=== PATIENT | male | born 1960 | race Caucasian/White ===

== ENCOUNTER → 2018-04-23 07:27 | Outpatient (CLI) | payer BC, SELFPAY ==
--- NOTE | 2018-04-23 07:31 | ECHOD_ITS ---
Reason For Study: PHTN Procedure This was a 2D Doppler, Color Flow transthoracic echocardiogram. The exam was of poor technical quality due to body habitus. The study was technically difficult. Contrast injection was performed. Exam performed in department. Left Ventricle Normal LV size. Left ventricular systolic function is normal. The estimated ejection fraction is 60 %. Unable to assess diastolic dysfunction. No regional wall motion abnormalities noted. Right Ventricle Normal RV size. Normal systolic function. Atria The left atrium is mildly enlarged. Normal right atrium. No doppler evidence for ASD. Mitral Valve There is no mitral annular calcification. Normal mitral valve. Trivial mitral valve insufficiency. Tricuspid Valve Normal tricuspid valve. Mild tricuspid valve insufficiency. Right ventricular systolic pressure estimated to be 41 mmHg. Aortic Valve Trisinus/trileaflet aortic valve. Mild focal aortic valve thickening. Pulmonic Valve The pulmonic valve is not well visualized. Trivial pulmonic valve insufficiency. Great Vessels Normal sized aortic root. Pericardium/Pleural No pericardial effusion. Medication 22 gauge I.V. with prn adaptor inserted into right arm. Diluted definity 3ml given slow IV push to enhance endocardial definition. MMode/2D Measurements & Calculations LVIDd: 4.6 cm IVSd: 0.92 cm Ao root diam: 3.2 cm LVIDs: 3.5 cm LVPWd: 0.96 cm RVDd: 3.2 cm FS: 24.4 % LAV(MOD-bp): 48.0 ml EDV(MOD-sp4): 126.9 ml EDV(MOD-sp2): 73.7 ml LAV(MOD-bp) Indexed: 20.1 ml/m2 ESV(MOD-sp4): 48.3 ml EF(MOD-sp2): 48.4 % LAV(MOD-sp2): 22.2 ml EF(MOD-sp4): 62.0 % LAV(MOD-sp4): 60.0 ml SV(MOD-sp4): 78.6 ml SV(MOD-sp2): 35.7 ml LA A4 area: 21.6 cm2 RA A4 area: 13.3 cm2 Doppler Measurements & Calculations MV E max garret: 68.0 cm/sec Lat Peak E' Garret: 12.8 cm/sec Med Peak E' Garret: 7.3 cm/sec MV A max garret: 77.5 cm/sec E/E' lat: 5.3 E/E' med: 9.3 MV E/A: 0.88 Ao V2 max: 126.8 cm/sec LV V1 max: 90.5 cm/sec PA V2 max: 149.6 cm/sec Ao max P.4 mmHg LV V1 max P.3 mmHg PI end-d garret: 122.2 cm/sec TR max garret: 308.9 cm/sec TR max P.2 mmHg Interpretation Summary The study was technically difficult. Contrast injection was performed. Left ventricular systolic function is normal. The estimated ejection fraction is 60 %. The left atrium is mildly enlarged. Trivial mitral valve insufficiency. Mild tricuspid valve insufficiency. Mild focal aortic valve thickening. Trivial pulmonic valve insufficiency. Right ventricular systolic pressure estimated to be 41 mmHg. Unable to assess diastolic dysfunction. Ordering Physician: Rosa Acosta Referring Physician: Benedict Henning MD Performed By: Yanique Milner, RDCS, RVT
== END ==
PROVIDERS: Family Provider Internal Medicine; PCP Internal Medicine; Visit Provider Internal Medicine
DX: I27.20 Pulmonary hypertension, unspecified (principal)
CPT/HCPCS: 93306; Q9957; A4216; C8929

== ENCOUNTER → 2019-05-18 | Outpatient (CLI) | payer BC, SELFPAY ==
[2019-05-18 13:42] VITALS: BMI 50.4
[2019-05-18 15:55] LABS: Anion Gap 7 (5-15); BUN 18 mg/dL (7-18); Calcium,Total 9.5 mg/dL (8.5-10.1); Chloride 106 mmol/L (98-107); EST Glomerular Filtration Rate 81 mL/min (>60); Est Glom Filt Rate - Afr Amer 98 mL/min (>60); Glucose 92 mg/dL (74-106); Potassium 4.1 mmol/L (3.5-5.1); Sodium Level 143 mmol/L (136-145)
[2019-05-18 16:05] LABS: BNP,B-Type NATRIURETIC PEPTIDE 23.4 pg/mL (0-100)
== END | disposition home or self-care (01) ==
LOC: LAB 14:42
PROVIDERS: Family Provider Internal Medicine; PCP Internal Medicine; Referring Provider Nurse Practitioner Family; Visit Provider Nurse Practitioner Family
DX: I42.8 Other cardiomyopathies (principal); I10 Essential (primary) hypertension; R06.09 Other forms of dyspnea
CPT/HCPCS: 36415; 80048; 83880

== ENCOUNTER → 2019-06-03 | Outpatient (CLI) | payer BC, SELFPAY ==
[2019-05-18 13:42] VITALS: BMI 50.4
--- NOTE | 2019-06-03 08:13 | ECHOCS_ITS ---
Reason For Study: Dyspnea/SOB Procedure This was a 2D Doppler, Color Flow transthoracic echocardiogram. The study was technically difficult. Contrast injection was performed. Exam performed in department. Left Ventricle Normal LV size. Left ventricular systolic function is normal. The estimated ejection fraction is 60 %. Diastolic function is indeterminate. No regional wall motion abnormalities noted. Right Ventricle Normal RV size. Normal systolic function. Atria Normal left atrium. Normal right atrium. No doppler evidence for ASD. Mitral Valve There is no mitral annular calcification. Normal mitral valve. Trivial mitral valve insufficiency. Tricuspid Valve Normal tricuspid valve. Trivial tricuspid valve insufficiency. Right ventricular systolic pressure estimated to be 34 mmHg. Aortic Valve Trisinus/trileaflet aortic valve. Normal aortic valve. Pulmonic Valve The pulmonic valve is not well visualized. Trivial pulmonic valve insufficiency. Great Vessels Normal sized aortic root. Pericardium/Pleural No pericardial effusion. Medication 22 gauge I.V. with prn adaptor inserted into right arm. Diluted definity 2ml given slow IV push to enhance endocardial definition. MMode/2D Measurements & Calculations LVIDd: 5.1 cm IVSd: 1.2 cm Ao root diam: 3.5 cm LVIDs: 3.7 cm LVPWd: 1.2 cm LA dimension: 3.7 cm FS: 26.2 % LAV(MOD-sp4): 35.9 ml LA A4 area: 14.5 cm2 RA A4 area: 11.2 cm2 Time Measurements MV dec time: 0.18 sec Doppler Measurements & Calculations MV E max garret: 74.0 cm/sec Lat Peak E' Garret: 12.8 cm/sec Med Peak E' Garret: 5.9 cm/sec MV A max garret: 87.3 cm/sec E/E' lat: 5.8 E/E' med: 12.5 MV E/A: 0.85 MV V2 max: 90.2 cm/sec MV P1/2t max garret: 72.9 cm/sec Ao V2 max: 122.3 cm/sec MV max P.3 mmHg MV P1/2t: 91.1 msec Ao max P.0 mmHg MV V2 mean: 52.8 cm/sec MV dec slope: 234.5 cm/sec2 MV mean P.3 mmHg MV V2 VTI: 21.1 cm MVA(P1/2t): 2.4 cm2 LV V1 max: 96.6 cm/sec PA V2 max: 152.2 cm/sec TR max garret: 275.9 cm/sec LV V1 max P.7 mmHg TR max P.5 mmHg Interpretation Summary The study was technically difficult. Contrast injection was performed. Left ventricular systolic function is normal. The estimated ejection fraction is 60 %. Trivial mitral valve insufficiency. Trivial tricuspid valve insufficiency. Trivial pulmonic valve insufficiency. Right ventricular systolic pressure estimated to be 34 mmHg. Diastolic function is indeterminate. Ordering Physician: Pedro Solorio Referring Physician: Rosa Acosta M.D. Performed By: Ney Gonzalez RCS
== END | disposition home or self-care (01) ==
PROVIDERS: Family Provider Internal Medicine; PCP Internal Medicine; Referring Provider Nurse Practitioner Family; Visit Provider Nurse Practitioner Family
DX: R06.09 Other forms of dyspnea (principal); I42.8 Other cardiomyopathies; I10 Essential (primary) hypertension
CPT/HCPCS: 93306; Q9957; A4216; C8929

== ENCOUNTER → 2019-07-23 | Outpatient (CLI) | payer BC, SELFPAY ==
[2019-05-18 13:42] VITALS: BMI 50.4
--- NOTE | 2019-07-23 14:35 | RAD_ITS ---
STUDY: X-RAY - CERVICAL SPINE REASON FOR EXAM: Male, 59 years old. Neck pain TECHNIQUE: 6 view(s) of the cervical spine were obtained. COMPARISON: None FINDINGS: There are degenerative changes of the anterior atlantoaxial articulation. Intact odontoid process. There is straightening of the normal cervical lordosis. There is multi-level endplate spondylosis. There is multi-level degenerative disc disease with multilevel disc space narrowing. Narrowing of the right C3-4, C4-5, C6-7, and left C3-4, C5-6, C6-7 and C7-T1 intervertebral neuroforamina. The soft tissue structures are unremarkable. RAD/Cerv Spine 4 or 5 Views IMPRESSION: Multilevel degenerative disc disease. Narrowing of the right C3-4, C4-5, C6-7, and left C3-4, C5-6, C6-7 and C7-T1 intervertebral neuroforamina. Electronically Signed: Dion Martinez MD at 15:35 EDT Tel [phone], Service support ,
== END | disposition home or self-care (01) ==
LOC: HPRAD 14:33
PROVIDERS: Family Provider Internal Medicine; PCP Internal Medicine; Referring Provider Internal Medicine; Visit Provider Internal Medicine
DX: M54.2 Cervicalgia (principal)
CPT/HCPCS: 72050

== ENCOUNTER → 2019-08-04 | Outpatient (CLI) | payer BC, SELFPAY ==
[2019-05-18 13:42] VITALS: BMI 50.4
--- NOTE | 2019-08-04 07:45 | US_ITS ---
STUDY: THYROID ULTRASOUND REASON FOR EXAM: Male, 59 years old. Thyromegaly. TECHNIQUE: Ultrasound evaluation of the thyroid was performed with real-time and static walker-scale imaging. COMPARISON: None. FINDINGS: RIGHT LOBE: The right lobe of the thyroid gland is enlarged and measures 5.8 cm x 2.4 cm by 2.2 cm. There is a homogeneous echotexture. There are no demonstrated solid, cystic or complex lesions. LEFT LOBE: The left lobe of the thyroid gland is enlarged and measures 4.9 cm x 1.9 cm x 1.6 cm. There is a homogeneous echotexture. There is a 3 mm x 3 mm x 2 mm hypoechoic solid nodule in the midpole. ISTHMUS: The isthmus measures 5.0 mm. The regional lymph nodes are normal. US/Thyroid IMPRESSION: Thyromegaly. 3 mm x 3 mm x 2 mm hypoechoic solid nodule in the midportion of the left lobe of the thyroid. Electronically Signed: Rl Pierre, at 15:48 EDT , Service support ,
--- NOTE | 2019-08-04 07:55 | RAD_ITS ---
STUDY: X-RAY - ESOPHAGUS (BARIUM SWALLOW) WITH FLUOROSCOPY REASON FOR EXAM: Male, 59 years old. Dysphagia. Heartburn. TECHNIQUE: 5 view(s) of the esophagus were obtained following swallowing of barium. FLUOROSCOPY TIME (if supplied): (0:47) minutes/seconds COMPARISON: Comparison is made with prior study dated July 17, 2016. FINDINGS: There is no demonstrated esophageal foreign body. There is no demonstrated stricture or mucosal abnormality. Normal gastroesophageal junction, without a demonstrated hiatal hernia. The patient ingested a 12 mm tablet of barium without any difficulties. Months again, a small diverticulum is seen in the second portion of the duodenum. Normal visualized aortic arch and descending thoracic aorta. Normal visualized pulmonary parenchyma. There are diffuse degenerative changes of the visualized thoracic spine. RAD/Esophagus Only IMPRESSION: Normal plain film x-ray examination (barium swallow) of the esophagus. Small diverticulum in the second portion of the duodenum. Electronically Signed: Rl Pierre, at 12:53 EDT , Service support ,
== END | disposition home or self-care (01) ==
LOC: RAD 07:41
PROVIDERS: Family Provider Internal Medicine; PCP Internal Medicine; Referring Provider Internal Medicine; Visit Provider Internal Medicine
DX: E01.0 Iodine-deficiency related diffuse (endemic) goiter (principal); R13.10 Dysphagia, unspecified
CPT/HCPCS: 74220; 76536

== ENCOUNTER 2019-10-20 12:49 | Inpatient (IN) | payer BC, SELFPAY ==
[2019-05-18 13:42] VITALS: BMI 50.4
[2019-10-20] VITALS (22 sets, daily range): BP systolic 88–154; BP diastolic 56–98; PULSE 71–112; RESP 14–24; TEMP 36.5–37; O2SAT 95–100; BMI 51.0; BMI 51.2; BMI 51.1
--- NOTE | 2019-10-20 13:03 | ED.RN ---
CAME OUT OF ROOM. THIS NURSE RETURNING TO UNIT ASKED HOW COULD ASSIST. SHE REPORTS PT HAD PROCEDURE WITH DR SUAREZ THIS AM AND WAS NOW HAVING TROUBLE BREATHING AND ASKED OF SHE SHOULD CONTACT DR SUAREZ.
--- NOTE | 2019-10-20 13:05 | ED.RN ---
NURSE ENTERED ROOM TO ASSESS PT. VOICE IS MOIST AND GARGLED. PT STATES HAVING DIFFICULTY BREATHING AND MANAGING SALIVA. HAD ENDO PROCEDURE THIS AN WITH SEDATING MEDS AND DILATION OF ESOPHAGUS. NOTIFIED DR WILDE OF PT STATUS
--- NOTE | 2019-10-20 13:14 | ED.RN ---
DR WILDE AT BEDSIDE TO EVALUATE PT.
--- NOTE | 2019-10-20 13:20 | NURSING ---
STAT AIRWAY TEAM CALLED
[2019-10-20] MEDS: Racepinephrine HCl 0.5 ML VIAL.NEB. INHALATION (13:26)
[2019-10-20] MEDS: Succinylcholine Chloride 200 MG/10 ML Vial 100 MG IV ×2 (13:29→13:34)
[2019-10-20] MEDS: Midazolam 2 MG/2 ML Syringe 2.5 MG IV (13:43)
[2019-10-20] MEDS: Propofol 200 MG/20 ML Vial 40 MG IV BOLUS (13:44)
[2019-10-20] MEDS: Etomidate 20 MG/10 ML Vial IV (13:50)
--- NOTE | 2019-10-20 13:54 | ED.DCSUM_ITS ---
- ER Visit Summary Date of Service: 10/20/19 Chief Complaint: [Difficulty swallowing] History of Present Illness: The patient is a 59 M [resents to the emergency department difficulty swallowing and breathing since undergoing an EGD this morning around 8 AM. Patient states that he went home and around 10:00 was able to eat and afterwards started having difficulty breathing. Patient states he ate a sausage sandwich. Patient now complaining of a hoarse voice. Complaining of difficulty breathing. Has history of hypertension, high cholesterol, pulmonary hypertension, cardiomyopathy, outpatients, and IBS.] Physical Examination: [HEENT-PERRLA, EOMI. Cranial nerves II through XII grossly intact. TMs clear. Mucous membranes moist. No adenopathy. She has noted angioedema of the oropharynx. Cardiovascular-regular rate and rhythm without murmur or ectopy Lungs-clear to auscultation, chest wall stable without crepitus or subcu emphysema Abdomen-normoactive bowel sounds, soft, nontender, no rebound or rigidity, no peritoneal signs. Extremities-intact ?4, normal range of motion, normal pulses, atraumatic] Test Results: [Ordered were CBC and BMP which are currently pending.] Emergency Department Course and Treatment: [On arrival patient had an IV line established. I immediately called and airway team after evaluating the patient. Patient was given a dose of racemic epinephrine aerosolized. Prior to attempted intubation anesthesia arrived as well as custody officer. ENT physician on way to hospital. Patient was given succinylcholine 100 mg IV as well as etomidate 20 mg IV and I attempted to intubate the patient however he had severe edema and it was difficult to differentiate tissues. Initial attempted intubation resulted in esophageal intubation. Patient had the ET tube removed. Patient then had dyw-vlomp-syxa ventilation performed. Anesthesia attempted intubation without success. Patient had an LMA placed. ENT now at bedside Dr. Mk Patterson. A third attempt at intubation was performed using a Frova by custody officer Dr. Castro and this too was unsuccessful. LMA was placed again and patient had good saturations with this. Decision was made to take patient emergently to the operating room for surgical airway.] Treatment Plan: [To operating room for surgical airway] Disposition: [Admit] Impression: Angioedema with compromised airway Respiratory failure] This note was generated with [employer]com[employer] software. It may contain incorrect words, spelling, and punctuation that were not noted in review of the chart prior to signing ED Disposition - Plan for ED Patient: Referrals: Rosa Acosta DO [Primary Care Provider] -
--- NOTE | 2019-10-20 14:00 | CPS ---
STAT Airway Team called. pt given racemic epi aerosol. Pt intubated with 8.0 ETT and then extubated. Multiple attempts with a smaller tube and I-Gel were used to ventilate pt. Pt taken to OR with I-Gel in place for tracheostomy placement.
--- NOTE | 2019-10-20 14:11 | ED.RN ---
DIFFICULT AIRWAY TEAM AND DR WAN AT BEDSIDE, PT TRANSFERRED TO OR WITHOUT COMPLETING ED-OR CHECKLIST. PT SEDATED, UNABLE TO ANSWER
[2019-10-20 14:13] LABS: Anion Gap 6 (5-15); BUN 14 mg/dL (7-18); BUN/Creat Ratio 17.2 RATIO (10-20); Calcium,Total 9.3 mg/dL (8.5-10.1); Chloride 107 mmol/L (98-107); Creatinine, Serum 0.82 mg/dL (0.70-1.30); EST Glomerular Filtration Rate 102 mL/min (>60); Est Glom Filt Rate - Afr Amer 124 mL/min (>60); Estimated Creatinine Clearance 89.57 ml/min; Glucose 123 mg/dL (74-106); Sodium Level 140 mmol/L (136-145)
[2019-10-20 14:14] LABS: Absolute Lymphocyte Count 1.32 X10^3/uL (0.83-4.51); Absolute Neutrophil Count 7.3 X10^3/uL (2.0-7.7); Eosinophil# 0.13 X10^3/uL; Eosinophils% 1.3 % (0-5); Hematocrit 45.4 % (40-54); Hemoglobin 15.3 g/dL (13.0-16.5); Lymphocyte # 1.32 X10^3/ul (4.0); Lymphocyte % 13.4 % (19-41); Mean Corp Hgb Conc 33.7 g/dL (32-36); Mean Corpuscular Hgb 32.3 pg (27.0-32.0); Mean Corpuscular Volume 95.8 fL (80-94); Mean Platelet Vol. 10.2 fl (6.2-12.0); Monocyte# 0.89 X10^3/uL; NRBC Flagged by Analyzer 0 % (0-5); Neutrophil # 7.26 X10^3/uL (2.7-7.7); Neutrophil % 73.9 % (47-70); Platelet Count 241 K/mm3 (150-450); RBC Distribution Width CV 13.2 % (11.6-14.6); RBC Distribution Width SD 46.4 fl (35.1-43.9); Red Blood Count 4.74 M/mm3 (4.6-6.2); White Blood Count 9.8 K/mm3 (4.4-11.0)
--- NOTE | 2019-10-20 15:05 | PCM.CON.CC ---
Reason for Consult Date of Consultation: 10/20/19 Reason for Consultation: Acute respiratory failure secondary to angioedema History of Present Illness: The patient is a 59-year-old male, with a history as outlined below, who initially presented to the emergency department on October 20 with complaints of difficulty swallowing and shortness of breath. The patient apparently underwent an upper endoscopy procedure by Dr. Bowman earlier the same day, without any complication noted. The patient returned home after the procedure, at which time, he apparently ate a sausage sandwich. Shortly thereafter, the patient developed the aforementioned symptoms. Of note, the patient is prescribed an LILIANA inhibitor on an outpatient basis. The patient does have a known history of nonischemic cardiomyopathy, hypertension, pulmonary hypertension and hyperlipidemia. On presentation to the emergency department, the patient was initially noted to be afebrile hemodynamically stable. He was initially maintaining appropriate oxygen saturations on room air. However, the patient did have stridor on exam. The patient was given racemic epinephrine while in the emergency department with bedside examination revealing significant posterior oropharyngeal edema. Over the course of the patient's ED stay, it became progressively more difficult for the patient to breathe. Therefore, a stat airway team was called overhead. Myself, anesthesia and ENT arrived to the bedside. Attempt was made by the ED provider to intubate the patient via direct laryngoscopy. This was unsuccessful. Two additional attempts both by myself and anesthesia were also unsuccessful. The decision was made at that time to transfer to the patient to the OR to undergo an emergent surgical airway placement. It does appear from documentation that the patient did experience a short episode of PEA arrest in the OR, for which he received chest compressions and epinephrine. The patient was able to tolerate emergency tracheostomy with a #6 Shiley cuffed trach placed. Following the patient's surgical intervention, he was transferred to the medical intensive care unit for further management. Overnight, ventilator parameters were augmented to increase minute ventilation, as the patient was initially noted to be retaining CO2. Past Medical History Past Medical History (Chronic Problems): Chronic Problems (Last Reviewed 10/20/19 @ 17:07 by Le Burgos DO) Hyperlipemia (Chronic) Palpitations (Chronic) Pulmonary hypertension (Chronic) Pure hypercholesterolemia (Chronic) Essential (primary) hypertension (Chronic) Restless leg syndrome (Chronic) Obesity (Chronic) Irritable bowel syndrome (Chronic) Medical History: Medical History (Last Reviewed 10/20/19 @ 17:07 by Le Burgos DO) Hyperlipemia (Chronic) E78.5 Palpitations (Chronic) R00.2 Nonischemic cardiomyopathy (Resolved) I42.8 Pulmonary hypertension (Chronic) I27.20 Pure hypercholesterolemia (Chronic) E78.00 Essential (primary) hypertension (Chronic) I10 Restless leg syndrome (Chronic) Obesity (Chronic) Irritable bowel syndrome (Chronic) Allergies No Known Allergies Allergy (Verified 10/20/19 12:53) Home Medications: Ambulatory Orders Medication Instructions Recorded Lansoprazole [Prevacid] 15 mg PO DAILY 05/05/14 celecoxib 200 mg capsule 200 mg PO QDAY 03/17/18 fluoxetine 40 mg capsule 40 mg PO QDAY #1 cap 03/17/18 lisinopril 20 1 tab PO QDAY 03/17/18 mg-hydrochlorothiazide 12.5 mg tablet carvedilol 3.125 mg tablet 3.125 mg PO BID 05/23/18 diphenhydramine 25 mg capsule 25 mg PO QHS PRN 11/06/18 ergocalciferol (vitamin D2) 2,500 2,500 unit PO DAILY 11/06/18 unit capsule tamsulosin 0.4 mg capsule 0.4 mg PO DAILY 90 Days #90 cap 11/06/18 Citalopram [Celexa] 20 mg PO DAILY 10/20/19 Gabapentin 1,200 mg PO QHS 10/20/19 Surgical History: Surgical History (Last Updated 11/06/18 @ 13:54 by Nallely Pacheco) History of carpal tunnel release of both wrists Z98.890 History of cholecystectomy Z90.49 History of open reduction and internal fixation (ORIF) procedure Z98.890 right knee Status post right inguinal hernia repair Z98.890, Z87.19 Surgical History: - - Right knee surgery, hernia repair Smoking Status: Former smoker Review of Systems Unable to obtain accurate/complete ROS d/t: Due to current mechanical ventilation status Objective: The patient's most recent lab work, culture data and imaging studies have all been personally reviewed. - Physical Exam Vitals/I&O's: Vital Signs Temp Pulse Resp BP Pulse Ox 98.4 F 90 22 H 154/98 H 97 10/20/19 12:49 10/20/19 13:15 10/20/19 13:15 10/20/19 12:49 10/20/19 12:49 Oxygen Delivery Method Room Air Weight: 326 lb 4.546 oz Body Mass Index (BMI) 51.0 General: - - Currently sedated and mechanically ventilated. HEENT: Atraumatic, Normocephalic, - Oral: No Gingival or Mucosal Lesions/ Ulcerations Neck: Supple, Trachea Midline, - - Tracheostomy site intact Lungs: No rhonchi, No wheeze, No rales, Diminished Cardiovascular: Regular rate, Regular Rhythm, Normal S1, Normal S2 Abdomen: Bowel Sounds Present, Soft, Non Tender, Distended, Obese Extremities: No clubbing, No cyanosis, No edema Skin: No breakdown Musculoskeletal: No Muscle Wasting Lymphatic: No Cervical, Supraclavicular, or Inguinal Adenopathy Neurological: - - No focal deficits. Currently sedated. Labs (Last 48 Hours) 10/20/19 10/20/19 13:10 13:10 WBC 9.8 RBC 4.74 Hgb 15.3 Hct 45.4 MCV 95.8 H MCH 32.3 H MCHC 33.7 RDW Std Deviation 46.4 H RDW Coeff of Jaquan 13.2 Plt Count 241 MPV 10.2 Immature Gran % (Auto) 1.400 H Neut % (Auto) 73.9 H Lymph % (Auto) 13.4 L [place] % (Auto) 9.0 Eos % (Auto) 1.3 Baso % (Auto) 1.0 Absolute Neuts (auto) 7.3 Absolute Lymphs (auto) 1.32 Nucleated RBC % 0 Sodium 140 Potassium 4.0 Chloride 107 Carbon Dioxide 27.0 Anion Gap 6 BUN 14 Creatinine 0.82 Estim Creat Clear Calc 89.57 Est GFR (MDRD) Af Amer 124 Est GFR (MDRD) Non-Af 102 BUN/Creatinine Ratio 17.2 Glucose 123 H Calcium 9.3 Assessment/Plan RECOMMENDATIONS: 1. Continue current supportive measures with mechanical ventilatory support. 2. Obtain arterial blood gas. 3. Wean FiO2 to maintain oxygen saturations at or above 90%. 4. Continue IV steroids, Pepcid and Benadryl. 5. Propofol and fentanyl for sedation. IMPRESSIONS: 1. Acute combined respiratory failure secondary to upper airway compromise in the setting of angioedema Attempts to place a secure airway x3 were unsuccessful in the emergency department. The patient was subsequently transferred to the OR to undergo emergent surgical airway placement. Ventilator parameters will be augmented to ensure adequacy of ventilation and oxygenation. Wean FiO2 to maintain oxygen saturations at or above 90%. Continue current sedation regimen. The exact etiology for the patient's angioedema and subsequent airway compromise is a bit unclear. Nevertheless, the patient will be continued on IV steroids, Benadryl and Pepcid accordingly. 2. Obesity/hypertension/nonischemic cardiomyopathy/IBS/GERD/BPH/neuropathy Complicates care, management, recovery and prognosis. Hold home medications for now. TIME: 40 minutes of critical care time, independent of procedures, was spent addressing the patient's acute combined respiratory failure secondary to upper airway compromise, angioedema, review of all data and collaboration with the care team. ([id number]) Code Visit 9xxxx: [id number] Critical care first hour
--- NOTE | 2019-10-20 15:13 | CPS ---
ABG DRAWN BY OR.
--- NOTE | 2019-10-20 15:25 | CPS ---
Critical ABG results called to Sherri ASHLEY in OR.
[2019-10-20 15:31] LABS: Allen Test POS; Base Excess 3 mmol/L (-2 to +2); Bicarbonate 33.1 mmol/L (22-26); Blood Gas Specimen Type ART; FI02 100; PO2 97 mmHG (75-100); SITE L Radial; SO2 93 % (95-99); Time Given 1530; Total Carbon Dioxide 36 mmol/L; pCO2 108.1 mmHg (35-45); pH 7.09 (7.35-7.45)
--- NOTE | 2019-10-20 15:37 | CPS ---
ABG DRAWN BY OR.
--- NOTE | 2019-10-20 15:39 | PCM.OPRPT ---
Report of Operation Date of Procedure: 10/19/19 Pre-Operative Diagnosis: Sudden extreme airway obstruction Post-Operative Diagnosis: Same Surgery/Procedure Performed:: Emergency tracheostomy Description of Surgical Findings:: Procedure emergency tracheostomy Preoperative diagnosis sudden emergency airway obstruction Postoperative diagnosis same Procedure the patient presented himself in the emergency room with sudden upper airway obstruction. Reportedly he had undergone an EGD elsewhere. The ER staff was unable to visualize the larynx because of extreme edema. The patient was being ventilated through an Ambu bag and later an LMA was placed with poor oxygenation. The patient was brought to the OR where an emergency tracheostomy was performed. The neck was hyperextended and the neck was prepped with Betadine solution. A horizontal incision was made 1 cm above the supra sternal notch. Skin subcutaneous tissues were incised and bleeding was controlled with the Bovie. Large fat pad was excised with the Bovie. The cricoid cartilage was palpated. It appeared to be 1 cm superior to the suprasternal notch. Tracheal hook was placed in the cricoid cartilage which was elevated superiorly and the thyroid gland was identified. Isthmus and the midportion of the thyroid gland was transected and bleeding was controlled with suture ligatures of 3-0 silk. With much difficulty the third and fourth tracheal rings were identified and a horizontal incision was made in the trachea. A #6 Shiley inflatable cuff tube was placed in position. Tube was attached to the anesthesia machine. The patient was adequately ventilated. The trach trach tube was anchored to the adjacent skin with 3-0 Prolene sutures. The patient now appeared to be in stable condition and was ventilated adequately. The procedure was considered terminated at this point. and he was returned to the recovery room in satisfactory condition. Mk Patterson MD
--- NOTE | 2019-10-20 15:50 | CPS ---
Critical ABG results called to Sherri ASHLEY in OR.
[2019-10-20 15:55] LABS: Allen Test POS; Base Excess 0 mmol/L (-2 to +2); Bicarbonate 28.9 mmol/L (22-26); Blood Gas Specimen Type ART; FI02 100; PO2 126 mmHG (75-100); SITE L Radial; Time Given 1550; Total Carbon Dioxide 31 mmol/L; pCO2 78.3 mmHg (35-45); pH 7.18 (7.35-7.45)
[2019-10-20 15:56] LABS: SO2 98 % (95-99)
--- NOTE | 2019-10-20 16:00 | CPS ---
Critical ABG results shown to Dr. Burgos, Pt arrived from OR with a size 6 Shiley cuffed trach and placed on ventilator in ICU1. Verbal order received to draw ABG in half hour.
--- NOTE | 2019-10-20 16:00 | RAD_ITS ---
STUDY: X-RAY CHEST REASON FOR EXAM: Male, 59 years old. Tube placement TECHNIQUE: Frontal view of the chest COMPARISON: 04/05/2017. FINDINGS: There is an enteric tube noted with its tip in the stomach. There is a tracheostomy tube in satisfactory position. There is patchy airspace opacity in the left mid lung field. The right lung is clear. There are no pleural effusions. There is no pneumothorax. The heart is normal in size. The visualized osseous structures are within normal limits. RAD/Chest 1 View (Portable) IMPRESSION: Satisfactory position of the support lines and tubes. Patchy opacity in the left midlung which is likely infectious in etiology. Electronically Signed: Chester Ventura, at 16:31 EST Tel , Service support ,
--- NOTE | 2019-10-20 16:14 | RAD_ITS ---
STUDY: X-RAY - ABDOMEN/PELVIS REASON FOR EXAM: Male, 59 years old. NG tube placement. TECHNIQUE: Single AP view of the abdomen / pelvis. COMPARISON: None. FINDINGS: There is an enteric tube noted with its tip in the stomach. There are dilated loops of small bowel in the mid abdomen. The visualized osseous structures are within normal limits. RAD/Abdomen Single View (Portable) IMPRESSION: Enteric tube tip in the stomach. Dilated loops of small bowel in the midabdomen which may be due to ileus or obstruction. Electronically Signed: Chester Ventura, at 16:57 EST Tel , Service support ,
[2019-10-20] MEDS: fentaNYL drip 100 ML 5 MCG IV (16:25)
[2019-10-20] MEDS: Propofol 10MG/Ml 1,000 MG/100 ML Bottle 8.9 MG CONT INF ×2 (16:30→23:28)
--- NOTE | 2019-10-20 16:47 | CPS ---
ABG drawn from Left radial arterial line by nursing.
--- NOTE | 2019-10-20 16:50 | CPS ---
ABG results called to Dr. Burgos per physician request. No critical values at this time. Verbal order received to do a repeat gas at 7PM and call her with the results: [phone].
--- NOTE | 2019-10-20 16:51 | HP.PCM_ITS ---
History of Present Illness Date of Admission: 10/20/19 The patient is a 59 year old M who presented to the ED earlier today 2/2 developing swallowing and breathing difficulties after undergoing and EGD by Dr. Bowman earlier this am at around 8. he went home at about 10 and was able to eat a sausage sandwich but then developed SOB and changes in his voice. Upon arrival to the ED an airway team was called immediately and racemic epi was given. RSI was attempted x3 but ETT was unable to be placed. LMA was placed and pt was taken emergently to the OR where a tracheostomy was performed. He did suffer from a brief PEA arrest and CPR was give for a very short period of time. ROSC was achieved quickly once an airway was obtained. He was taken to the ICU for further mgt. Upon my arrival, he was still sedated and paralyzed. Trach was in place. He is on lisinopril at baseline. Past Medical History Past Medical History (Chronic Problems): Chronic Problems (Last Reviewed 10/20/19 @ 17:07 by Le Burgos DO) Hyperlipemia (Chronic) Palpitations (Chronic) Pulmonary hypertension (Chronic) Pure hypercholesterolemia (Chronic) Essential (primary) hypertension (Chronic) Restless leg syndrome (Chronic) Obesity (Chronic) Irritable bowel syndrome (Chronic) Medical History: Medical History (Last Reviewed 10/20/19 @ 17:07 by Le Burgos DO) Hyperlipemia (Chronic) E78.5 Palpitations (Chronic) R00.2 Nonischemic cardiomyopathy (Resolved) I42.8 Pulmonary hypertension (Chronic) I27.20 Pure hypercholesterolemia (Chronic) E78.00 Essential (primary) hypertension (Chronic) I10 Restless leg syndrome (Chronic) Obesity (Chronic) Irritable bowel syndrome (Chronic) Allergies No Known Allergies Allergy (Verified 10/20/19 12:53) Home Medications: Ambulatory Orders Medication Instructions Recorded Lansoprazole [Prevacid] 15 mg PO DAILY 05/05/14 celecoxib 200 mg capsule 200 mg PO QDAY 03/17/18 fluoxetine 40 mg capsule 40 mg PO QDAY #1 cap 03/17/18 lisinopril 20 1 tab PO QDAY 03/17/18 mg-hydrochlorothiazide 12.5 mg tablet carvedilol 3.125 mg tablet 3.125 mg PO BID 05/23/18 diphenhydramine 25 mg capsule 25 mg PO QHS PRN 11/06/18 ergocalciferol (vitamin D2) 2,500 2,500 unit PO DAILY 11/06/18 unit capsule tamsulosin 0.4 mg capsule 0.4 mg PO DAILY 90 Days #90 cap 11/06/18 Citalopram [Celexa] 20 mg PO DAILY 10/20/19 Gabapentin 1,200 mg PO QHS 10/20/19 Surgical History: Surgical History (Last Updated 11/06/18 @ 13:54 by Nallely Pacheco) History of carpal tunnel release of both wrists Z98.890 History of cholecystectomy Z90.49 History of open reduction and internal fixation (ORIF) procedure Z98.890 right knee Status post right inguinal hernia repair Z98.890, Z87.19 Surgical History: - - Right knee surgery, hernia repair, Tracheostomy (10/20/19) Smoking Status: Former smoker Tobacco Use: Pipe VTE Information - Inpt Only VTE Present on Admission: No VTE Mechan Device Prophylaxis: SCD's VTE Pharm Prophylaxis ordered?: Yes - Physical Exam Vitals/I&O's: Vital Signs Temp Pulse Resp BP Pulse Ox 98.4 F 112 H 16 154/98 H 99 10/20/19 12:49 10/20/19 16:10 10/20/19 16:10 10/20/19 12:49 10/20/19 16:10 Oxygen Delivery Method Room Air Weight: 148 kg Body Mass Index (BMI) 51.0 General: - - trached paralyzed and sedated HEENT: Atraumatic, Normocephalic, - - large tongue Oral: Moist Mucosa, - - OG in place Neck: Supple, No JVD, Negative Carotid Bruits, No Nodes, Trachea Midline, - - trach-fresh in place and sutured in with blood tinged gauze surrounding Lungs: No rhonchi, No rales, Wheezes Cardiovascular: Regular Rhythm, Normal S1, Normal S2, No murmurs, No Ectopic Activity, No rub noted, No Gallop, Tachycardic Abdomen: Bowel Sounds Present, Soft, Non Tender, Non-Distended, No Hepato- splenomegaly, Obese, No hernias noted Extremities: No clubbing, No cyanosis, No edema, Capillary Refill Less than 3 Seconds, - - bounding pedal pulses Skin: No rashes, No breakdown Musculoskeletal: No Muscle Wasting, Arthritic Changes Lymphatic: No Cervical, Supraclavicular, or Inguinal Adenopathy Neurological: - - unable to evaluate with paralytics and sedation Psych/Mental Status: - - intubated Laboratory Results 10/20/19 13:10: WBC 9.8, RBC 4.74, Hgb 15.3, Hct 45.4, MCV 95.8 H, MCH 32.3 H, MCHC 33.7, RDW Std Deviation 46.4 H, RDW Coeff of Jaquan 13.2, Plt Count 241, MPV 10.2, Immature Gran % (Auto) 1.400 H, Neut % (Auto) 73.9 H, Lymph % (Auto) 13.4 L, [place] % (Auto) 9.0, Eos % (Auto) 1.3, Baso % (Auto) 1.0, Absolute Neuts (auto) 7.3, Absolute Lymphs (auto) 1.32, Nucleated RBC % 0 10/20/19 13:10: Sodium 140, Potassium 4.0, Chloride 107, Carbon Dioxide 27.0, Anion Gap 6, BUN 14, Creatinine 0.82, Estim Creat Clear Calc 89.57, Est GFR (MDRD) Af Amer 124, Est GFR (MDRD) Non-Af 102, BUN/Creatinine Ratio 17.2, Glucose 123 H, Calcium 9.3 10/20/19 15:20: Specimen Type ART, Sample Site L Radial, pH 7.09 L*, Bicarbonate Actual 33.1 H, POC Total CO2 36, Base Excess 3 H, O2 Saturation 93 L, O2 % 100, ABG pCO2 108.1 H*, ABG pO2 97, Austin Test POS, O2 Delivery Device Ambu, Blood Gas Notified Whom RN, Blood Gas Notified Time 1530 10/20/19 15:46: Specimen Type ART, Sample Site L Radial, pH 7.18 L*, Bicarbonate Actual 28.9 H, POC Total CO2 31, Base Excess 0, O2 Saturation 98, O2 % 100, ABG pCO2 78.3 H*, ABG pO2 126 H, [place] Test POS, O2 Delivery Device Ambu, Blood Gas Notified Whom RN, Blood Gas Notified Time 1550 Current Medications Albuterol/Ipratropium (Duoneb) 3 ml INHALATION Q4H.RT DA Carvedilol (Coreg) 3.125 mg PO BID DA Chlorhexidine Gluconate () 15 ml PO BID DA Dexamethasone Sodium Phosphate (Decadron) 4 mg IV Q8 DA Diphenhydramine HCl (Benadryl) 25 mg IV Q6H PRN DA Stop: 10/21/19 18:00 Heparin Sodium (Porcine) (Heparin Na) 5,000 unit SC Q8 DA Propofol (Diprivan) 1,000 mg in 100 mls @ 8.88 mls/hr CONT INF .[id number] DA; Protocol Fentanyl () 100 mls @ 5 mls/hr IV UD DA; Protocol Sodium Chloride () 1,000 mls @ 0 mls/hr IV .Q0M DA Famotidine 20 mg/ Sodium (Chloride) 10 mls @ 300 mls/hr IV Q12 DA Enteral Nutritional Formula (Glucerna 1.5) 1,000 mls @ 30 mls/hr GT .[id number] DA Ampicillin Sodium/Sulbactam (Sodium 3 gm/ Sodium Chloride) 112 mls @ 150 mls/hr IV Q6 DA Ondansetron HCl (Zofran) 4 mg IV Q6H PRN PRN PRN Reason: Nausea Propofol (Diprivan) 60 mg IV BOLUS X1 ONE Stop: 10/20/19 16:25 Sodium Chloride () 10 - 40 ml IV UD PRN PRN Reason: SALINE FLUSH Assessment/Plan All Active Problems (Last Reviewed 10/20/19 @ 17:07 by Le Burgos DO) Nonischemic cardiomyopathy (Resolved) Acute Hypoxemic/Hypercapnic Respiratory Failure 2/2 Angioedema s/p Emergent Trach -Trach is a Shiley [employer] -looks good on CXR -trach is sutured in place -Repeat ABG pending -FiO2 weaned to 60 from 100 -CXR in am -will cover with Unasyn for suspected aspiration -wean vent as able -sedation with Propofol and Fentanyl -restraints -start TF with Glucerna at 30 cc/hr with prop running -Pulm/CCM is following Angioedema 2/2 unknown cause -occurred s/p EGD -Decadron 4 mg q 8 hrs -Benadryl x 24 hrs at 25 mg -Famotidine 20 mg BID -may want to avoid ACEI at d/c but more likely related to something used during EGD or PO intake following HTN -Art line in place -remove when able -should improve with sedation -restart home coreg -hold ACEI indefinitely/HCT for now Hyperglycemia -check A1c -if remains elevated SSI may be required with steroids Neuropathy -hold Gabapentin GERD -famotidine for now BPH -guallpa -hold Flomax Depression -hold celexa for now NICM -Last Echo shows and EF of 60% -continue BB -Hold ACEI indefinitely MO -recommend wgt loss -if decannulated should have sleep study prior Code Visit Inpatient E&M: 27477 Init Hosp L3
[2019-10-20 16:55] LABS: Base Excess -1 mmol/L (-2 to +2); Bicarbonate 26.2 mmol/L (22-26); Blood Gas Specimen Type ALINE; FI02 60; Mode A-C; O2 Delivery Device Vent; PEEP 10; PO2 81 mmHG (75-100); RR 16; SITE L Radial; SO2 94 % (95-99); Time Given 1655; Total Carbon Dioxide 28 mmol/L; Vt 500; pCO2 58.6 mmHg (35-45); pH 7.26 (7.35-7.45)
--- NOTE | 2019-10-20 17:10 | CHAPLAIN ---
Type of Pastoral Visit ___ Initial Visit ___ Follow-up Visit ___ On-call Visit ___ General Patient Visit ___ Spiritual Assessment ___ Family Conference ___ Bereavement _x__ Rapid Response ___ Code Blue ___ Other (describe below) Pastoral Care Referral From ___ Patient _x__ Family ___ Nurse ___ Physician ___ Application Security Engineer ___ Black Belt _x__ Other (describe below) Sacrament/Intervention _x__ Active listening ___ Anointing ___ Latter Day ___ Bereavement ___ Communion _x__ Dayanna exploration ___ ___ Life review _x__ Prayer ___ Reconciliation ___ Sacrament of Sick _x__ Supportive presence ___ Wedding _x__ Other (describe below) Pastoral Comments presence with spouse during ED visit and then on to OR for surgery; gave time and attention as spouse was alone the entire time; follow up with spouse at ICU waiting area; offers of presence and prayer welcomed;
[2019-10-20] MEDS: DiphenhydrAMINE 50 MG/ML Syringe 25 MG IV ×2 (17:58→23:34)
[2019-10-20 18:44] LABS: CPK Total, Creatine Kinase 73 U/L (39-308); Triglycerides 337 mg/dL
[2019-10-20 19:21] LABS: Base Excess 1 mmol/L (-2 to +2); Bicarbonate 27.1 mmol/L (22-26); Blood Gas Specimen Type ALINE; FI02 60; Mode A-C; O2 Delivery Device Vent; PEEP 10; PO2 154 mmHG (75-100); RR 16; SITE L Radial; SO2 99 % (95-99); Total Carbon Dioxide 29 mmol/L; Vt 500; pCO2 54.7 mmHg (35-45)
[2019-10-20] MEDS: Ipratropium/Albuterol Sulfate 3 ML AMPUL.NEB INHALATION ×2 (19:28→23:35)
--- NOTE | 2019-10-20 19:30 | CPS ---
RN obtained for RT via art line
[2019-10-20] MEDS: Heparin Injection (Vial) 5,000 UNIT/ML VIAL 5000 UNIT SC (21:36)
[2019-10-20] MEDS: dexAMETHasone 4 MG/ML Vial IV (21:36)
[2019-10-20] MEDS: Carvedilol 3.125 MG TABLET PO (21:36)
[2019-10-20] MEDS: Chlorhexidine 15 ML PO (21:38)
[2019-10-20] MEDS: 0.9% Saline Lock 10 ML Syringe IV (21:43)
[2019-10-20] MEDS: Famotidine 200 MG/20 ML MDV 20 MG in 0.9% Normal Saline (Pres. free 8 ML 300 MG IV (21:43)
[2019-10-20] MEDS: fentaNYL drip 100 ML 12.5 MCG IV (23:30)
[2019-10-20 23:51] LABS: Bedside Glucose 145 mg/dL (70-110)
[2019-10-21] VITALS (34 sets, daily range): BP systolic 93–166; BP diastolic 61–98; PULSE 71–100; RESP 10–18; TEMP 37.2–37.8; O2SAT 94–100
[2019-10-21 00:10] LABS: Base Excess 1 mmol/L (-2 to +2); Bicarbonate 26.4 mmol/L (22-26); Blood Gas Specimen Type ALINE; FI02 40; Mode A-C; O2 Delivery Device Vent; PEEP 8; PO2 90 mmHG (75-100); RR 18; SITE L Radial; SO2 97 % (95-99); Total Carbon Dioxide 28 mmol/L; Vt 500; pCO2 44.8 mmHg (35-45); pH 7.38 (7.35-7.45)
[2019-10-21] MEDS: Ipratropium/Albuterol Sulfate 3 ML AMPUL.NEB INHALATION ×2 (03:30→06:37)
--- NOTE | 2019-10-21 04:50 | CPS ---
obtained by RN via art line
[2019-10-21] MEDS: dexAMETHasone 4 MG/ML Vial IV ×3 (05:54→20:57)
[2019-10-21] MEDS: Heparin Injection (Vial) 5,000 UNIT/ML VIAL 5000 UNIT SC ×3 (05:54→20:56)
[2019-10-21] MEDS: DiphenhydrAMINE 50 MG/ML Syringe 25 MG IV ×3 (05:54→17:04)
--- NOTE | 2019-10-21 05:55 | RAD_ITS ---
STUDY: X-RAY CHEST REASON FOR EXAM: Male, 59 years old. Shortness of breath/dyspnea. TECHNIQUE: Single AP portable view of the chest. COMPARISON: Comparison is made with prior study in October 20, 2019. FINDINGS: A tracheostomy tube is in situ. The tip is at 5.5 cm proximal to the nataliia. EKG electrodes are seen. Minimal increased markings at the lung bases suggest some mild bibasilar atelectasis. The previously seen left mid lung infiltrate has improved. There is no demonstrated pleural abnormality. Normal size heart. Normal mediastinum and yessenia. Normal visualized pulmonary arteries. Normal visualized aortic arch and descending thoracic aorta. Normal visualized thoracic spine. Left shoulder calcific tendinitis. There is no demonstrated abnormality of the visualized soft tissue structures of the upper abdomen. RAD/Chest 1 View (Portable) IMPRESSION: Mild residual increased markings at the lung bases suggestive of atelectasis. Improved aeration of the left mid lung infiltrate. Electronically Signed: Rl Pierre, at 11:01 EST , Service support ,
--- NOTE | 2019-10-21 05:55 | RAD_ITS ---
STUDY: X-RAY - ABDOMEN/PELVIS REASON FOR EXAM: Male, 59 years old. History of small bowel obstruction. TECHNIQUE: Portable AP supine and upright views of the abdomen and pelvis. COMPARISON: Comparison is made with prior study dated October 20, 2019. FINDINGS: Persistent atelectasis and/or infiltrates in the lower lobes. An enteric tube is seen within the body of the stomach. There is an unremarkable bowel gas pattern. There is no demonstrated free abdominal air. The visualized liver, spleen and kidneys are grossly normal in size and morphology. Normal soft tissue structures. There are diffuse degenerative changes of the visualized lumbar spine. RAD/Abd Decub and/or Erect(Portabl IMPRESSION: The gas pattern is unremarkable. Electronically Signed: Rl Pierre, at 10:33 EST , Service support ,
[2019-10-21 06:04] LABS: Absolute Neutrophil Count 14.9 X10^3/uL (2.0-7.7); Basophil# 0.03 X10^3/uL; Basophil% 0.2 % (0-1); Hematocrit 43.7 % (40-54); Hemoglobin 14.5 g/dL (13.0-16.5); Lymphocyte % 4.8 % (19-41); Mean Corp Hgb Conc 33.2 g/dL (32-36); Mean Corpuscular Hgb 32.1 pg (27.0-32.0); Mean Corpuscular Volume 96.7 fL (80-94); Monocyte# 0.66 X10^3/uL; NRBC Flagged by Analyzer 0 % (0-5); Neutrophil # 14.93 X10^3/uL (2.7-7.7); Neutrophil % 89.9 % (47-70); Platelet Count 234 K/mm3 (150-450); RBC Distribution Width CV 13.5 % (11.6-14.6); RBC Distribution Width SD 48.3 fl (35.1-43.9); Red Blood Count 4.52 M/mm3 (4.6-6.2); White Blood Count 16.6 K/mm3 (4.4-11.0)
[2019-10-21 06:25] LABS: ALB/GLOB Ratio 0.9 RATIO (0.9-2.4); AST(SGOT) 99 U/L (15-37); Alanine Aminotransfer ALT/SGPT 197 U/L (16-61); Albumin, Serum 3.3 g/dL (3.2-5.0); Alkaline Phosphatase 89 U/L (45-117); Anion Gap 8 (5-15); BUN 17 mg/dL (7-18); BUN/Creat Ratio 16.8 RATIO (10-20); Calcium,Total 8.9 mg/dL (8.5-10.1); Chloride 107 mmol/L (98-107); Creatinine, Serum 1.01 mg/dL (0.70-1.30); EST Glomerular Filtration Rate 80 mL/min (>60); Est Glom Filt Rate - Afr Amer 97 mL/min (>60); Estimated Creatinine Clearance 70.19 ml/min; Globulin 3.7 g/dL (2.2-4.2); Glucose 159 mg/dL (74-106); Magnesium 1.8 mg/dL (1.6-2.6); Phosphorus 3.8 mg/dL (2.5-4.9); Potassium 4.3 mmol/L (3.5-5.1); Sodium Level 141 mmol/L (136-145)
--- NOTE | 2019-10-21 06:34 | PCM.PN.INT ---
Subjective: The patient was seen and examined at the bedside this morning. Events from the last 24 hours have been reviewed. The patient currently has a low-grade fever but remains hemodynamically stable. He remains on assist control mode mechanical ventilation with an FiO2 requirement of 40%. The patient is currently alert, cooperative and following commands. He appears comfortable at this time. Pain is currently controlled. Following my evaluation of the patient, he was transitioned to spontaneous mode of mechanical ventilation with a pressure support of 10 and PEEP of 5. Objective: The patient's most recent lab work, culture data and imaging studies have all been personally reviewed. General: Alert, Cooperative, No apparent distress, - - Currently tolerating spontaneous mode of mechanical ventilation HEENT: Atraumatic, PERRLA, Normocephalic Oral: No Gingival or Mucosal Lesions/ Ulcerations, - - OG tube in place Neck: Supple, No Nodes, - - Tracheostomy site intact. #[address] in place. Lungs: - - Diminished in posterior lung bases. Clear across anterior lung mariscal. Cardiovascular: Regular rate, Regular Rhythm, Normal S1, Normal S2, No murmurs Abdomen: Soft, Non Tender, Hypoactive Bowel Sounds, - - Significantly less distended than yesterday Extremities: No clubbing, No cyanosis, No edema Skin: No breakdown Musculoskeletal: No Tenderness to Palpation of Joints or Extremities Lymphatic: No Cervical, Supraclavicular, or Inguinal Adenopathy Neurological: Cranial nerves II-XII grossly intact, Neuro grossly intact Psych/Mental Status: Normal Affect, Appropriate Vital Signs Temp Pulse Resp BP Pulse Ox 99.5 F H 94 18 129/83 H 97 10/21/19 06:00 10/21/19 06:00 10/21/19 06:00 10/21/19 06:00 10/21/19 06:00 Oxygen Delivery Method Mechanical Ventilator Weight: 326 lb 8.073 oz Body Mass Index (BMI) 51.2 Intake and Output for Last 24 Hours 10/19/19 10/20/19 10/21/19 23:59 23:59 23:59 Intake Total 264.00 / 275.00 230.01 / 230.01 Output Total 300 / 600 700 / 700 Balance -36.00 / -325.00 -469.99 / -469.99 Labs (Last 48 Hours) 10/20/19 10/20/19 10/20/19 13:10 13:10 13:10 WBC 9.8 RBC 4.74 Hgb 15.3 Hct 45.4 MCV 95.8 H MCH 32.3 H MCHC 33.7 RDW Std Deviation 46.4 H RDW Coeff of Jaquan 13.2 Plt Count 241 MPV 10.2 Immature Gran % (Auto) 1.400 H Neut % (Auto) 73.9 H Lymph % (Auto) 13.4 L [place] % (Auto) 9.0 Eos % (Auto) 1.3 Baso % (Auto) 1.0 Absolute Neuts (auto) 7.3 Absolute Lymphs (auto) 1.32 Nucleated RBC % 0 Specimen Type Sample Site pH Bicarbonate Actual POC Total CO2 Base Excess O2 Saturation O2 % ABG pCO2 ABG pO2 [place] Test Respiration Rate O2 Delivery Device Minute Volume Vent Mode Tidal Volume POC PEEP Blood Gas Notified Whom Blood Gas Notified Time Sodium 140 Potassium 4.0 Chloride 107 Carbon Dioxide 27.0 Anion Gap 6 BUN 14 Creatinine 0.82 Estim Creat Clear Calc 89.57 Est GFR (MDRD) Af Amer 124 Est GFR (MDRD) Non-Af 102 BUN/Creatinine Ratio 17.2 Glucose 123 H Calcium 9.3 Phosphorus Magnesium Total Bilirubin AST ALT Alkaline Phosphatase Total Creatine Kinase 73 Total Protein Albumin Globulin Albumin/Globulin Ratio Triglycerides 337 H POC Glucose 10/20/19 10/20/19 10/20/19 15:20 15:46 16:51 WBC RBC Hgb Hct MCV MCH MCHC RDW Std Deviation RDW Coeff of Jaquan Plt Count MPV Immature Gran % (Auto) Neut % (Auto) Lymph % (Auto) [place] % (Auto) Eos % (Auto) Baso % (Auto) Absolute Neuts (auto) Absolute Lymphs (auto) Nucleated RBC % Specimen Type ART ART [place]ALEE Sample Site L Radial L Radial L Radial pH 7.09 L* 7.18 L* 7.26 L Bicarbonate Actual 33.1 H 28.9 H 26.2 H POC Total CO2 36 31 28 Base Excess 3 H 0 -1 O2 Saturation 93 L 98 94 L O2 % 100 100 60 ABG pCO2 108.1 H* 78.3 H* 58.6 H ABG pO2 97 126 H 81 [place] Test POS POS NA Respiration Rate 16 O2 Delivery Device Ambu Ambu Vent Minute Volume Vent Mode A-C Tidal Volume 500 POC PEEP 10 Blood Gas Notified Whom RN RN HOSP MD Blood Gas Notified Time 1530 1550 1655 Sodium Potassium Chloride Carbon Dioxide Anion Gap BUN Creatinine Estim Creat Clear Calc Est GFR (MDRD) Af Amer Est GFR (MDRD) Non-Af BUN/Creatinine Ratio Glucose Calcium Phosphorus Magnesium Total Bilirubin AST ALT Alkaline Phosphatase Total Creatine Kinase Total Protein Albumin Globulin Albumin/Globulin Ratio Triglycerides POC Glucose 10/20/19 10/20/19 10/21/19 19:14 23:44 00:07 WBC RBC Hgb Hct MCV MCH MCHC RDW Std Deviation RDW Coeff of Jaquan Plt Count MPV Immature Gran % (Auto) Neut % (Auto) Lymph % (Auto) [place] % (Auto) Eos % (Auto) Baso % (Auto) Absolute Neuts (auto) Absolute Lymphs (auto) Nucleated RBC % Specimen Type [facility] Sample Site L Radial L Radial pH 7.30 L 7.38 Bicarbonate Actual 27.1 H 26.4 H POC Total CO2 29 28 Base Excess 1 1 O2 Saturation 99 97 O2 % 60 40 ABG pCO2 54.7 H 44.8 ABG pO2 154 H 90 [place] Test NA NA Respiration Rate 16 18 O2 Delivery Device Vent Vent Minute Volume 8.00 9.00 Vent Mode A-C A-C Tidal Volume 500 500 POC PEEP 10 8 Blood Gas Notified Whom [facility] MD HOSP MD Blood Gas Notified Time Sodium Potassium Chloride Carbon Dioxide Anion Gap BUN Creatinine Estim Creat Clear Calc Est GFR (MDRD) Af Amer Est GFR (MDRD) Non-Af BUN/Creatinine Ratio Glucose Calcium Phosphorus Magnesium Total Bilirubin AST ALT Alkaline Phosphatase Total Creatine Kinase Total Protein Albumin Globulin Albumin/Globulin Ratio Triglycerides POC Glucose 145 H 10/21/19 10/21/19 05:40 05:40 WBC 16.6 H RBC 4.52 L Hgb 14.5 Hct 43.7 MCV 96.7 H MCH 32.1 H MCHC 33.2 RDW Std Deviation 48.3 H RDW Coeff of Jaquan 13.5 Plt Count 234 MPV 10.0 Immature Gran % (Auto) 1.100 H Neut % (Auto) 89.9 H Lymph % (Auto) 4.8 L [place] % (Auto) 4.0 Eos % (Auto) 0.0 Baso % (Auto) 0.2 Absolute Neuts (auto) 14.9 H Absolute Lymphs (auto) 0.80 L Nucleated RBC % 0 Specimen Type Sample Site pH Bicarbonate Actual POC Total CO2 Base Excess O2 Saturation O2 % ABG pCO2 ABG pO2 [place] Test Respiration Rate O2 Delivery Device Minute Volume Vent Mode Tidal Volume POC PEEP Blood Gas Notified Whom Blood Gas Notified Time Sodium 141 Potassium 4.3 Chloride 107 Carbon Dioxide 26.0 Anion Gap 8 BUN 17 Creatinine 1.01 Estim Creat Clear Calc 70.19 Est GFR (MDRD) Af Amer 97 Est GFR (MDRD) Non-Af 80 BUN/Creatinine Ratio 16.8 Glucose 159 H Calcium 8.9 Phosphorus 3.8 Magnesium 1.8 Total Bilirubin 0.60 AST 99 H ALT 197 H Alkaline Phosphatase 89 Total Creatine Kinase Total Protein 7.0 Albumin 3.3 Globulin 3.7 Albumin/Globulin Ratio 0.9 Triglycerides POC Glucose Clinical Impression(s) from Imaging Studies Chest X-Ray 10/20/19 16:00 IMPRESSION: Satisfactory position of the support lines and tubes. Patchy opacity in the left midlung which is likely infectious in etiology. Electronically Signed: Chester Lorenzo, at 16:31 EST Tel , Service support , KUB X-Ray 10/20/19 16:14 IMPRESSION: Enteric tube tip in the stomach. Dilated loops of small bowel in the midabdomen which may be due to ileus or obstruction. Electronically Signed: Chester Lorenzo, at 16:57 EST Tel , Service support , Medical Necessity - Tobacco Use Smoking Status: Former smoker Tobacco Use: Pipe Assessment/Plan All Active Problems (Last Reviewed 10/20/19 @ 17:07 by Le Burgos DO) Nonischemic cardiomyopathy (Resolved) RECOMMENDATIONS: 1. Continue current supportive measures. Transition from assist control to spontaneous mode of mechanical ventilation. 2. PEEP to be decreased to 5. Continue to wean FiO2 to maintain oxygen saturations at or above 90%. 3. Continue steroids, Pepcid and Benadryl. 4. Discontinue propofol. Continue fentanyl for pain. 5. Okay to start tube feeds today. IMPRESSIONS: 1. Acute combined respiratory failure secondary to upper airway compromise in the setting of angioedema, now POD #1 s/p emergent tracheostomy Attempts to place a secure airway x3 were unsuccessful in the emergency department. The patient was subsequently transferred to the OR to undergo emergent surgical airway placement. The patient was able to be transitioned to spontaneous mode mechanical ventilation this morning. We will continue current supportive measures including IV steroids, Benadryl and Pepcid. FiO2 will be weaned to maintain oxygen saturations at or above 90%. Tube feeds can be initiated from my perspective. The exact etiology for the patient's angioedema and subsequent airway compromise is a bit unclear. 2. Obesity/hypertension/nonischemic cardiomyopathy/IBS/GERD/BPH/neuropathy Complicates care, management, recovery and prognosis. Okay to restart home medications from my perspective. TIME: 38 minutes of critical care time, independent of procedures, was spent addressing the patient's acute combined respiratory failure secondary to upper airway compromise, angioedema, review of all data and collaboration with the care team. ([id number]) Code Visit 9xxxx: [id number] Critical care first hour
[2019-10-21 06:35] LABS: Base Excess 2 mmol/L (-2 to +2); Bicarbonate 27.2 mmol/L (22-26); Blood Gas Specimen Type ALINE; FI02 40; Mode A-C; O2 Delivery Device Vent; PEEP 8; PO2 89 mmHG (75-100); RR 18; SITE L Radial; SO2 97 % (95-99); Total Carbon Dioxide 29 mmol/L; Vt 500; pCO2 45.4 mmHg (35-45); pH 7.39 (7.35-7.45)
--- NOTE | 2019-10-21 07:07 | PN_ITS ---
Subjective: CC; follow-up acute hypoxic respiratory failure Objective: GENERAL:awake on the vent HEENT: Atraumatic; EYES; Anicteric, Normal Conjunctiva NECK; Trach collar in place RESPIRATORY: Diminished to auscultation CARDIOVASCULAR: Regular S1 S2, GI: soft, normoactive bowel sounds, : No Renal angle tenderness; EXTREMITIES: No edema, no clubbing, MUSCULOSKELETAL: no muscle waisting NEURO: Awake; no lateralizing signs. SKIN: No Rash PSYCH; Flat affect Vitals/I&O's: Vital Signs Temp Pulse Resp BP Pulse Ox 99.3 F H 89 18 93/61 97 10/21/19 07:00 10/21/19 07:00 10/21/19 07:00 10/21/19 07:00 10/21/19 07:00 Oxygen Delivery Method Mechanical Ventilator Weight: 148.1 kg Body Mass Index (BMI) 51.2 Intake and Output for Last 24 Hours 10/19/19 10/20/19 10/21/19 23:59 23:59 23:59 Intake Total 264.00 / 275.00 384.81 / 384.81 Output Total 300 / 600 700 / 700 Balance -36.00 / -325.00 -315.19 / -315.19 Laboratory Results 10/20/19 13:10: WBC 9.8, RBC 4.74, Hgb 15.3, Hct 45.4, MCV 95.8 H, MCH 32.3 H, MCHC 33.7, RDW Std Deviation 46.4 H, RDW Coeff of Jaquan 13.2, Plt Count 241, MPV 10.2, Immature Gran % (Auto) 1.400 H, Neut % (Auto) 73.9 H, Lymph % (Auto) 13.4 L, [place] % (Auto) 9.0, Eos % (Auto) 1.3, Baso % (Auto) 1.0, Absolute Neuts (auto) 7.3, Absolute Lymphs (auto) 1.32, Nucleated RBC % 0 10/20/19 13:10: Sodium 140, Potassium 4.0, Chloride 107, Carbon Dioxide 27.0, Anion Gap 6, BUN 14, Creatinine 0.82, Estim Creat Clear Calc 89.57, Est GFR (MDRD) Af Amer 124, Est GFR (MDRD) Non-Af 102, BUN/Creatinine Ratio 17.2, Glucose 123 H, Calcium 9.3 10/20/19 13:10: Total Creatine Kinase 73, Triglycerides 337 H 10/20/19 15:20: Specimen Type ART, Sample Site L Radial, pH 7.09 L*, Bicarbonate Actual 33.1 H, POC Total CO2 36, Base Excess 3 H, O2 Saturation 93 L, O2 % 100, ABG pCO2 108.1 H*, ABG pO2 97, [place] Test POS, O2 Delivery Device Ambu, Blood Gas Notified Whom RN, Blood Gas Notified Time 1530 10/20/19 15:46: Specimen Type ART, Sample Site L Radial, pH 7.18 L*, Bicarbonate Actual 28.9 H, POC Total CO2 31, Base Excess 0, O2 Saturation 98, O2 % 100, ABG pCO2 78.3 H*, ABG pO2 126 H, [place] Test POS, O2 Delivery Device Ambu, Blood Gas Notified Whom RN, Blood Gas Notified Time 1550 10/20/19 16:51: Specimen Type [place], Sample Site L Radial, pH 7.26 L, Bicarbonate Actual 26.2 H, POC Total CO2 28, Base Excess -1, O2 Saturation 94 L, O2 % 60, ABG pCO2 58.6 H, ABG pO2 81, [place] Test NA, Respiration Rate 16, O2 Delivery Device Vent, Vent Mode A-C, Tidal Volume 500, POC PEEP 10, Blood Gas Notified Whom [facility] , Blood Gas Notified Time 1655 10/20/19 19:14: Specimen Type [place], Sample Site L Radial, pH 7.30 L, Bicarbonate Actual 27.1 H, POC Total CO2 29, Base Excess 1, O2 Saturation 99, O2 % 60, ABG pCO2 54.7 H, ABG pO2 154 H, [place] Test NA, Respiration Rate 16, O2 Delivery Device Vent, Minute Volume 8.00, Vent Mode A-C, Tidal Volume 500, POC PEEP 10, Blood Gas Notified Whom MICHAEL JAIN 10/20/19 23:44: POC Glucose 145 H 10/21/19 00:07: Specimen Type [place], Sample Site L Radial, pH 7.38, Bicarbonate Actual 26.4 H, POC Total CO2 28, Base Excess 1, O2 Saturation 97, O2 % 40, ABG pCO2 44.8, ABG pO2 90, [place] Test NA, Respiration Rate 18, O2 Delivery Device Vent, Minute Volume 9.00, Vent Mode A-C, Tidal Volume 500, POC PEEP 8, Blood Gas Notified Whom [facility] 10/21/19 05:40: WBC 16.6 H, RBC 4.52 L, Hgb 14.5, Hct 43.7, MCV 96.7 H, MCH 32.1 H, MCHC 33.2, RDW Std Deviation 48.3 H, RDW Coeff of Jaquan 13.5, Plt Count 234, MPV 10.0, Immature Gran % (Auto) 1.100 H, Neut % (Auto) 89.9 H, Lymph % (Auto) 4.8 L, [place] % (Auto) 4.0, Eos % (Auto) 0.0, Baso % (Auto) 0.2, Absolute Neuts (auto) 14.9 H, Absolute Lymphs (auto) 0.80 L, Nucleated RBC % 0 10/21/19 05:40: Sodium 141, Potassium 4.3, Chloride 107, Carbon Dioxide 26.0, Anion Gap 8, BUN 17, Creatinine 1.01, Estim Creat Clear Calc 70.19, Est GFR (MDRD) Af Amer 97, Est GFR (MDRD) Non-Af 80, BUN/Creatinine Ratio 16.8, Glucose 159 H, Calcium 8.9, Phosphorus 3.8, Magnesium 1.8, Total Bilirubin 0.60, AST 99 H, ALT 197 H, Alkaline Phosphatase 89, Total Protein 7.0, Albumin 3.3, Globulin 3.7, Albumin/Globulin Ratio 0.9 10/21/19 06:06: Specimen Type Cancelled, Sample Site Cancelled, pH Cancelled, Bicarbonate Actual Cancelled, POC Total CO2 Cancelled, Base Excess Cancelled, O2 Saturation Cancelled, O2 % Cancelled, ABG pCO2 Cancelled, ABG pO2 Cancelled, [place] Test Cancelled, Respiration Rate Cancelled, O2 Delivery Device Cancelled, Liter Flow Cancelled, Minute Volume Cancelled, Vent Mode Cancelled, Tidal Volume Cancelled, POC PEEP Cancelled, POC Pressure Suppt Cancelled, Pressure High Cancelled, Pressure Low Cancelled, Time High Cancelled, Time Low Cancelled, EPAP Cancelled, IPAP Cancelled, Blood Gas Notified Whom Cancelled, Blood Gas Notified Time Cancelled 10/21/19 06:10: Specimen Type [place], Sample Site L Radial, pH 7.39, Bicarbonate Actual 27.2 H, POC Total CO2 29, Base Excess 2, O2 Saturation 97, O2 % 40, ABG pCO2 45.4 H, ABG pO2 89, [place] Test NA, Respiration Rate 18, O2 Delivery Device Vent, Minute Volume 9.00, Vent Mode A-C, Tidal Volume 500, POC PEEP 8, Blood Gas Notified Whom ICU MD Current Medications Albuterol/Ipratropium (Duoneb) 3 ml INHALATION Q4H.RT [facility] Last Admin: 10/21/19 06:37 Dose: 3 ml Documented by: Carvedilol (Coreg) 3.125 mg PO BID [facility] Last Admin: 10/20/19 21:36 Dose: 3.125 mg Documented by: Chlorhexidine Gluconate () 15 ml PO BID [facility] Last Admin: 10/20/19 21:38 Dose: 15 ml Documented by: Dexamethasone Sodium Phosphate (Decadron) 4 mg IV Q8 [facility] Last Admin: 10/21/19 05:54 Dose: 4 mg Documented by: Diphenhydramine HCl (Benadryl) 25 mg IV Q6 [facility] Last Admin: 10/21/19 05:54 Dose: 25 mg Documented by: Heparin Sodium (Porcine) (Heparin Na) 5,000 unit SC Q8 [facility] Last Admin: 10/21/19 05:54 Dose: 5,000 unit Documented by: Propofol (Diprivan) 1,000 mg in 100 mls @ 8.88 mls/hr CONT INF .[id number] [facility]; Protocol Last Titration: 10/21/19 07:00 Dose: 10 mcg/kg/min, 8.9 mls/hr Documented by: Fentanyl () 100 mls @ 5 mls/hr IV UD [facility]; Protocol Last Titration: 10/21/19 07:00 Dose: 125 mcg/hr, 12.5 mls/hr Documented by: Sodium Chloride () 1,000 mls @ 0 mls/hr IV .Q0M [facility] Famotidine 20 mg/ Sodium (Chloride) 10 mls @ 300 mls/hr IV Q12 [facility] Last Infusion: 10/20/19 22:27 Dose: Infused Documented by: Ampicillin Sodium/Sulbactam (Sodium 3 gm/ Sodium Chloride) 112 mls @ 150 mls/hr IV Q6 [facility] Last Infusion: 10/21/19 06:53 Dose: Infused Documented by: Ondansetron HCl (Zofran) 4 mg IV Q6H PRN PRN PRN Reason: Nausea Sodium Chloride () 10 - 40 ml IV UD PRN PRN Reason: SALINE FLUSH Last Admin: 10/20/19 21:43 Dose: 10 ml Documented by: STROKE Vital Signs/Narrative: Vital Signs Temp Pulse Resp BP BP Pulse Ox 10/21/19 07:00 99.3 F H 89 18 109/92 H 93/61 97 10/21/19 06:41 91 18 96 10/21/19 06:00 99.5 F H 94 18 129/83 H 97 10/21/19 05:00 99.5 F H 96 17 140/98 H 154/88 H 95 10/21/19 04:00 99.3 F H 79 18 127/72 H 118/74 99 10/21/19 03:30 87 18 96 10/21/19 03:08 73 Medical Necessity - Tobacco Use Smoking Status: Former smoker Tobacco Use: Pipe Assessment/Plan All Active Problems (Last Reviewed 10/20/19 @ 17:07 by Le Burgos DO) Nonischemic cardiomyopathy (Resolved) Patient is a 59-year-old gentleman who presented with difficulty breathing following EGD which was performed earlier in the day. An assessment of acute hypoxic respiratory failure secondary to upper airway obstruction was made. Attempts to intubate patient was unsuccessful the advanced airway team was called patient was taken to the OR underwent emergent trach subsequently admitted to the intensive care unit for further management 1. Acute hypoxic and hypercapnic respiratory failure secondary to angioedema ~Patient underwent emergency tracheostomy. Subsequently transferred to the intensive care unit to the vent. Consult placed to pulmonary medicine and ENT. Vent management deferred to pulmonary medicine patient still remains on the vent is currently in assist control mode. Was on propofol drip weaned off remains on fentanyl drip for pain control. Patient has significant secretions from the trach site 2. Cardiopulmonary arrest ~following patient acute hypoxic and hypercapnic respiratory failure as a result of airway compromise patient was successfully resuscitated using ACLS as well as an OR 3. Angioedema suspected to be secondary to LILIANA inhibitors ~Altered acute hypoxic and hypercapnic respiratory failure management as described above. The suspected offending medications discontinued 4. Aspiration pneumonia ~imaging studies obtained demonstrated Patchy opacity in the left midlung which is likely infectious in etiology. Currently on Unasyn 5. Hyperglycemia ~Secondary to concomitant administration of steroid 6. Nonischemic cardiomyopathy ~Stable 7. Morbid obesity with BMI of 50.2 ~ Counseled on weight reduction 8. BPH ?Patient is on Flomax 9. Hypertension ~ blood pressure controlled, is on carvedilol as well as Zestoretic the Zestoretic discontinued. Plan is to resume HCTZ and carvedilol once patient passes speech and swallow evaluation 10. Peripheral neuropathy ~ patient is on gabapentin which was held on admission 11. DVT prophylaxis ~SC heparin Active Medications Albuterol/Ipratropium (Duoneb) 3 ml INHALATION Q4H.RT [facility] Last Admin: 10/21/19 06:37 Dose: 3 ml Documented by: Carvedilol (Coreg) 3.125 mg PO BID [facility] Last Admin: 10/20/19 21:36 Dose: 3.125 mg Documented by: Chlorhexidine Gluconate () 15 ml PO BID [facility] Last Admin: 10/20/19 21:38 Dose: 15 ml Documented by: Dexamethasone Sodium Phosphate (Decadron) 4 mg IV Q8 [facility] Last Admin: 10/21/19 05:54 Dose: 4 mg Documented by: Diphenhydramine HCl (Benadryl) 25 mg IV Q6 [facility] Last Admin: 10/21/19 05:54 Dose: 25 mg Documented by: Heparin Sodium (Porcine) (Heparin Na) 5,000 unit SC Q8 [facility] Last Admin: 10/21/19 05:54 Dose: 5,000 unit Documented by: Propofol (Diprivan) 1,000 mg in 100 mls @ 8.88 mls/hr CONT INF .[id number] [facility]; Protocol Last Titration: 10/21/19 08:52 Dose: Infused Documented by: Fentanyl () 100 mls @ 5 mls/hr IV UD [facility]; Protocol Last Admin: 10/21/19 08:00 Dose: 125 mcg/hr, 12.5 mls/hr Documented by: Sodium Chloride () 1,000 mls @ 0 mls/hr IV .Q0M [facility] Famotidine 20 mg/ Sodium (Chloride) 10 mls @ 300 mls/hr IV Q12 [facility] Last Infusion: 10/20/19 22:27 Dose: Infused Documented by: Ampicillin Sodium/Sulbactam (Sodium 3 gm/ Sodium Chloride) 112 mls @ 150 mls/hr IV Q6 [facility] Last Infusion: 10/21/19 06:53 Dose: Infused Documented by: Ondansetron HCl (Zofran) 4 mg IV Q6H PRN PRN PRN Reason: Nausea Sodium Chloride () 10 - 40 ml IV UD PRN PRN Reason: SALINE FLUSH Last Admin: 10/20/19 21:43 Dose: 10 ml Documented by: Clinical Impression(s) from Imaging Studies Chest X-Ray 10/20/19 16:00 IMPRESSION: Satisfactory position of the support lines and tubes. Patchy opacity in the left midlung which is likely infectious in etiology. Electronically Signed: Chester Ventura, at 16:31 EST Tel , Service support , KUB X-Ray 10/20/19 16:14 IMPRESSION: Enteric tube tip in the stomach. Dilated loops of small bowel in the midabdomen which may be due to ileus or obstruction. Electronically Signed: Chester Ventura, at 16:57 EST Tel , Service support , Code Visit Inpatient E&M: 10672 Subs Hosp L3
--- NOTE | 2019-10-21 07:15 | NURSING ---
Dr Castro at bedside. Changed ventilator settings to CPap mode and ordered to stop propofol but continue running the fentanyl gtt. After several minutes observation, Dr Castro instructed to leave patient on CPap as long as tolerated.
[2019-10-21] MEDS: fentaNYL drip 100 ML 12.5 MCG IV (08:00)
--- NOTE | 2019-10-21 08:41 | CPS ---
DR. HAYES MADE VENT CHANGES TO CPAP 5 PS 10 AT LAST VISIT.
--- NOTE | 2019-10-21 08:59 | CPS ---
patient was 100% on peep 5 ps 10 40%. patient weaned to .35%
[2019-10-21] MEDS: Famotidine 200 MG/20 ML MDV 20 MG in 0.9% Normal Saline (Pres. free 8 ML 300 MG IV ×2 (09:54→20:57)
[2019-10-21] MEDS: Carvedilol 3.125 MG TABLET PO ×2 (09:55→20:56)
[2019-10-21] MEDS: Chlorhexidine 15 ML PO ×2 (09:55→20:57)
--- NOTE | 2019-10-21 12:25 | CASEMGMT ---
RN ABI BOOKMAKER MAP CM to room to meet with patient for initial transition planning/care coordination assessment. SUSHIL ALEX introduced self and role at [facility]. Pt expresses understanding by nodding his head and consents to assessment at this time. Pt w/trach and on vent. Pt resting in bed in no distress at this time. @ bedside. Care providers, pharmacy, and demographics verified with pt/ at this time. PCP: Karla Specialists: Colby--GI, Milady--cardiology Preferred [facility]acy: [facility] Insurance: [employer] Prescription Benefit: Yes Living Will/HPOA: Does not have LW or HCPOA . Provided with AD information. States does not want to talk with SW at this time to complete paperwork. Provided information on advanced directives and given Social Service rac card with number to call if chooses in the future to utilize [facility] social work for advanced directive completion. LNOK: Living Arrangements: Lives with in 2-story home. FFSU. Independent prior to hospitalization. Transportation: Pt and . Deny transportation concerns. DME: Denies using any DME and denies needs. HHC/SNF: No history of either. No need identified. Pt/ wish for pt to return home and express no concerns with going home at time of discharge. CM to follow for home oxygen needs and any further discharge planning/needs. Pt/ express no concerns/needs at this time. Advised pt/ to ask for CM if any further questions/concerns/needs arise. PLAN: Home w/spousal support and discharge plans in place. Sonia MCDONOUGH RN, CM
[2019-10-21] MEDS: Acetaminophen 650 MG/20 ML UDC GT ×2 (13:35→20:55)
[2019-10-21] MEDS: fentaNYL drip 100 ML 15 MCG IV ×2 (15:06→22:01)
--- NOTE | 2019-10-21 15:18 | CHAPLAIN ---
Type of Pastoral Visit _x__ Initial Visit ___ Follow-up Visit ___ On-call Visit ___ General Patient Visit ___ Spiritual Assessment ___ Family Conference ___ Bereavement ___ Rapid Response ___ Code Blue ___ Other (describe below) Pastoral Care Referral From _x__ Patient _x__ Family ___ Nurse ___ Physician ___ Asset Accountant ___ Uniform Attendant ___ Other (describe below) Sacrament/Intervention ___ Active listening ___ Anointing ___ Restoration ___ Bereavement ___ Communion ___ Dayanna exploration ___ ___ Life review ___ Prayer ___ Reconciliation ___ Sacrament of Sick _x__ Supportive presence ___ Wedding ___ Other (describe below) Pastoral Comments patient is alert but unable to talk due to surgical trach done; spouse is with him; together spouse and this core machine tender inform patient of support given yesterday; spouse and pt express appreciation for spiritual care
[2019-10-21] MEDS: Albuterol 2.5 MG/3 ML VIAL.NEB. INHALATION (19:00)
[2019-10-21] MEDS: 0.9% Saline Lock 10 ML Syringe IV (20:56)
[2019-10-22] VITALS (35 sets, daily range): BP systolic 138–190; BP diastolic 58–119; PULSE 69–100; RESP 8–24; TEMP 37.2–37.7; O2SAT 94–100
[2019-10-22] MEDS: DiphenhydrAMINE 50 MG/ML Syringe 25 MG IV ×5 (00:34→23:32)
[2019-10-22] MEDS: Acetaminophen 650 MG/20 ML UDC GT (04:11)
[2019-10-22 04:14] LABS: Absolute Lymphocyte Count 0.73 X10^3/uL (0.83-4.51); Absolute Neutrophil Count 14.7 X10^3/uL (2.0-7.7); Basophil# 0.02 X10^3/uL; Basophil% 0.1 % (0-1); Hematocrit 39.6 % (40-54); Hemoglobin 13.3 g/dL (13.0-16.5); Lymphocyte # 0.73 X10^3/ul (4.0); Lymphocyte % 4.3 % (19-41); Mean Corp Hgb Conc 33.6 g/dL (32-36); Mean Corpuscular Hgb 32.8 pg (27.0-32.0); Mean Corpuscular Volume 97.8 fL (80-94); Mean Platelet Vol. 9.7 fl (6.2-12.0); Monocyte% 7.7 % (0-10); NRBC Flagged by Analyzer 0 % (0-5); Neutrophil # 14.71 X10^3/uL (2.7-7.7); Neutrophil % 87.2 % (47-70); Platelet Count 214 K/mm3 (150-450); RBC Distribution Width CV 13.6 % (11.6-14.6); RBC Distribution Width SD 48.5 fl (35.1-43.9); Red Blood Count 4.05 M/mm3 (4.6-6.2); White Blood Count 16.9 K/mm3 (4.4-11.0)
[2019-10-22 04:30] LABS: Anion Gap 7 (5-15); BUN 19 mg/dL (7-18); BUN/Creat Ratio 23.3 RATIO (10-20); Calcium,Total 8.1 mg/dL (8.5-10.1); Chloride 108 mmol/L (98-107); Creatinine, Serum 0.81 mg/dL (0.70-1.30); EST Glomerular Filtration Rate 103 mL/min (>60); Est Glom Filt Rate - Afr Amer 124 mL/min (>60); Estimated Creatinine Clearance 87.52 ml/min; Glucose 136 mg/dL (74-106); Magnesium 2.2 mg/dL (1.6-2.6); Sodium Level 144 mmol/L (136-145)
[2019-10-22] MEDS: fentaNYL drip 100 ML 15 MCG IV (04:46)
[2019-10-22] MEDS: 0.9% Saline Lock 10 ML Syringe IV (04:51)
[2019-10-22] MEDS: dexAMETHasone 4 MG/ML Vial IV ×3 (04:53→21:25)
[2019-10-22] MEDS: Heparin Injection (Vial) 5,000 UNIT/ML VIAL 5000 UNIT SC ×3 (04:53→21:25)
--- NOTE | 2019-10-22 06:21 | PCM.PN.INT ---
Subjective: The patient was seen and examined at the bedside this morning. Events from the last 24 hours have been reviewed. The patient currently has a low-grade fever but remains hemodynamically stable. The patient has remained on spontaneous mode mechanical ventilation since yesterday. I did call and personally speak with Dr. Tee of ENT this morning with regards to the possibility of performing a bedside video laryngoscopy to evaluate the patient's supraglottic structures. Given how well the patient was doing from a respiratory perspective, he was weaned off of ventilatory support after his cuff was deflated and placed on trach collar supplemental O2. Objective: The patient's most recent lab work, culture data and imaging studies have all been personally reviewed. General: Alert, Cooperative, No apparent distress, - - Currently tolerating trach collar O2. HEENT: Atraumatic, PERRLA, Normocephalic Oral: No Gingival or Mucosal Lesions/ Ulcerations, - - OG tube in place Neck: Supple, No Nodes, Trachea Midline, - - Tracheostomy site intact. Lungs: No rhonchi, No wheeze, No rales, Diminished Cardiovascular: Regular rate, Regular Rhythm, Normal S1, Normal S2, No murmurs Abdomen: Bowel Sounds Present, Soft, Non Tender, Obese Extremities: No clubbing, No cyanosis, No edema Skin: No breakdown Musculoskeletal: No Tenderness to Palpation of Joints or Extremities, No Muscle Wasting Lymphatic: No Cervical, Supraclavicular, or Inguinal Adenopathy Neurological: Cranial nerves II-XII grossly intact, Neuro grossly intact Psych/Mental Status: Normal Affect, Appropriate Vital Signs Temp Pulse Resp BP Pulse Ox 99.5 F H 76 14 142/83 H 100 10/22/19 06:00 10/22/19 06:00 10/22/19 06:00 10/22/19 06:00 10/22/19 06:00 Oxygen Delivery Method Mechanical Ventilator Weight: 327 lb 9.71 oz Body Mass Index (BMI) 51.2 Intake and Output for Last 24 Hours 10/20/19 10/21/19 10/22/19 23:59 23:59 23:59 Intake Total 264.00 / 275.00 972.29 / 975.79 415.25 / 415.25 Output Total 300 / 600 2049 / 2049 300 / 300 Balance -36.00 / -325.00 -1077.71 / -1074.21 115.25 / 115.25 Labs (Last 48 Hours) 10/20/19 10/20/19 10/20/19 13:10 13:10 13:10 WBC 9.8 RBC 4.74 Hgb 15.3 Hct 45.4 MCV 95.8 H MCH 32.3 H MCHC 33.7 RDW Std Deviation 46.4 H RDW Coeff of Jaquan 13.2 Plt Count 241 MPV 10.2 Immature Gran % (Auto) 1.400 H Neut % (Auto) 73.9 H Lymph % (Auto) 13.4 L [place] % (Auto) 9.0 Eos % (Auto) 1.3 Baso % (Auto) 1.0 Absolute Neuts (auto) 7.3 Absolute Lymphs (auto) 1.32 Nucleated RBC % 0 Specimen Type Sample Site pH Bicarbonate Actual POC Total CO2 Base Excess O2 Saturation O2 % ABG pCO2 ABG pO2 [place] Test Respiration Rate O2 Delivery Device Liter Flow Minute Volume Vent Mode Tidal Volume POC PEEP POC Pressure Suppt Pressure High Pressure Low Time High Time Low EPAP IPAP Blood Gas Notified Whom Blood Gas Notified Time Sodium 140 Potassium 4.0 Chloride 107 Carbon Dioxide 27.0 Anion Gap 6 BUN 14 Creatinine 0.82 Estim Creat Clear Calc 89.57 Est GFR (MDRD) Af Amer 124 Est GFR (MDRD) Non-Af 102 BUN/Creatinine Ratio 17.2 Glucose 123 H Calcium 9.3 Phosphorus Magnesium Total Bilirubin AST ALT Alkaline Phosphatase Total Creatine Kinase 73 Total Protein Albumin Globulin Albumin/Globulin Ratio Triglycerides 337 H POC Glucose 10/20/19 10/20/19 10/20/19 15:20 15:46 16:51 WBC RBC Hgb Hct MCV MCH MCHC RDW Std Deviation RDW Coeff of Jaquan Plt Count MPV Immature Gran % (Auto) Neut % (Auto) Lymph % (Auto) [place] % (Auto) Eos % (Auto) Baso % (Auto) Absolute Neuts (auto) Absolute Lymphs (auto) Nucleated RBC % Specimen Type ART ART ROSALEE Sample Site L Radial L Radial L Radial pH 7.09 L* 7.18 L* 7.26 L Bicarbonate Actual 33.1 H 28.9 H 26.2 H POC Total CO2 36 31 28 Base Excess 3 H 0 -1 O2 Saturation 93 L 98 94 L O2 % 100 100 60 ABG pCO2 108.1 H* 78.3 H* 58.6 H ABG pO2 97 126 H 81 [place] Test POS POS NA Respiration Rate 16 O2 Delivery Device Ambu Ambu Vent Liter Flow Minute Volume Vent Mode A-C Tidal Volume 500 POC PEEP 10 POC Pressure Suppt Pressure High Pressure Low Time High Time Low EPAP IPAP Blood Gas Notified Whom RN RN HOSP MD Blood Gas Notified Time 1530 1550 1655 Sodium Potassium Chloride Carbon Dioxide Anion Gap BUN Creatinine Estim Creat Clear Calc Est GFR (MDRD) Af Amer Est GFR (MDRD) Non-Af BUN/Creatinine Ratio Glucose Calcium Phosphorus Magnesium Total Bilirubin AST ALT Alkaline Phosphatase Total Creatine Kinase Total Protein Albumin Globulin Albumin/Globulin Ratio Triglycerides POC Glucose 10/20/19 10/20/19 10/21/19 19:14 23:44 00:07 WBC RBC Hgb Hct MCV MCH MCHC RDW Std Deviation RDW Coeff of Jaquan Plt Count MPV Immature Gran % (Auto) Neut % (Auto) Lymph % (Auto) [place] % (Auto) Eos % (Auto) Baso % (Auto) Absolute Neuts (auto) Absolute Lymphs (auto) Nucleated RBC % Specimen Type [facility] Sample Site L Radial L Radial pH 7.30 L 7.38 Bicarbonate Actual 27.1 H 26.4 H POC Total CO2 29 28 Base Excess 1 1 O2 Saturation 99 97 O2 % 60 40 ABG pCO2 54.7 H 44.8 ABG pO2 154 H 90 [place] Test NA NA Respiration Rate 16 18 O2 Delivery Device Vent Vent Liter Flow Minute Volume 8.00 9.00 Vent Mode A-C A-C Tidal Volume 500 500 POC PEEP 10 8 POC Pressure Suppt Pressure High Pressure Low Time High Time Low EPAP IPAP Blood Gas Notified Whom [facility] MD Blood Gas Notified Time Sodium Potassium Chloride Carbon Dioxide Anion Gap BUN Creatinine Estim Creat Clear Calc Est GFR (MDRD) Af Amer Est GFR (MDRD) Non-Af BUN/Creatinine Ratio Glucose Calcium Phosphorus Magnesium Total Bilirubin AST ALT Alkaline Phosphatase Total Creatine Kinase Total Protein Albumin Globulin Albumin/Globulin Ratio Triglycerides POC Glucose 145 H 10/21/19 10/21/19 10/21/19 05:40 05:40 06:06 WBC 16.6 H RBC 4.52 L Hgb 14.5 Hct 43.7 MCV 96.7 H MCH 32.1 H MCHC 33.2 RDW Std Deviation 48.3 H RDW Coeff of Jaquan 13.5 Plt Count 234 MPV 10.0 Immature Gran % (Auto) 1.100 H Neut % (Auto) 89.9 H Lymph % (Auto) 4.8 L [place] % (Auto) 4.0 Eos % (Auto) 0.0 Baso % (Auto) 0.2 Absolute Neuts (auto) 14.9 H Absolute Lymphs (auto) 0.80 L Nucleated RBC % 0 Specimen Type Cancelled Sample Site Cancelled pH Cancelled Bicarbonate Actual Cancelled POC Total CO2 Cancelled Base Excess Cancelled O2 Saturation Cancelled O2 % Cancelled ABG pCO2 Cancelled ABG pO2 Cancelled [place] Test Cancelled Respiration Rate Cancelled O2 Delivery Device Cancelled Liter Flow Cancelled Minute Volume Cancelled Vent Mode Cancelled Tidal Volume Cancelled POC PEEP Cancelled POC Pressure Suppt Cancelled Pressure High Cancelled Pressure Low Cancelled Time High Cancelled Time Low Cancelled EPAP Cancelled IPAP Cancelled Blood Gas Notified Whom Cancelled Blood Gas Notified Time Cancelled Sodium 141 Potassium 4.3 Chloride 107 Carbon Dioxide 26.0 Anion Gap 8 BUN 17 Creatinine 1.01 Estim Creat Clear Calc 70.19 Est GFR (MDRD) Af Amer 97 Est GFR (MDRD) Non-Af 80 BUN/Creatinine Ratio 16.8 Glucose 159 H Calcium 8.9 Phosphorus 3.8 Magnesium 1.8 Total Bilirubin 0.60 AST 99 H ALT 197 H Alkaline Phosphatase 89 Total Creatine Kinase Total Protein 7.0 Albumin 3.3 Globulin 3.7 Albumin/Globulin Ratio 0.9 Triglycerides POC Glucose 10/21/19 10/22/19 10/22/19 06:10 04:00 04:00 WBC 16.9 H RBC 4.05 L Hgb 13.3 Hct 39.6 L MCV 97.8 H MCH 32.8 H MCHC 33.6 RDW Std Deviation 48.5 H RDW Coeff of Jaquan 13.6 Plt Count 214 MPV 9.7 Immature Gran % (Auto) 0.700 Neut % (Auto) 87.2 H Lymph % (Auto) 4.3 L [place] % (Auto) 7.7 Eos % (Auto) 0.0 Baso % (Auto) 0.1 Absolute Neuts (auto) 14.7 H Absolute Lymphs (auto) 0.73 L Nucleated RBC % 0 Specimen Type [place] Sample Site L Radial pH 7.39 Bicarbonate Actual 27.2 H POC Total CO2 29 Base Excess 2 O2 Saturation 97 O2 % 40 ABG pCO2 45.4 H ABG pO2 89 [place] Test NA Respiration Rate 18 O2 Delivery Device Vent Liter Flow Minute Volume 9.00 Vent Mode A-C Tidal Volume 500 POC PEEP 8 POC Pressure Suppt Pressure High Pressure Low Time High Time Low EPAP IPAP Blood Gas Notified Whom ICU MD Blood Gas Notified Time Sodium 144 Potassium 4.0 Chloride 108 H Carbon Dioxide 29.0 Anion Gap 7 BUN 19 H Creatinine 0.81 Estim Creat Clear Calc 87.52 Est GFR (MDRD) Af Amer 124 Est GFR (MDRD) Non-Af 103 BUN/Creatinine Ratio 23.3 H Glucose 136 H Calcium 8.1 L Phosphorus Magnesium 2.2 Total Bilirubin AST ALT Alkaline Phosphatase Total Creatine Kinase Total Protein Albumin Globulin Albumin/Globulin Ratio Triglycerides POC Glucose Clinical Impression(s) from Imaging Studies Chest X-Ray 10/20/19 16:00 IMPRESSION: Satisfactory position of the support lines and tubes. Patchy opacity in the left midlung which is likely infectious in etiology. Electronically Signed: Chester Ventura, at 16:31 EST Tel , Service support , KUB X-Ray 10/20/19 16:14 IMPRESSION: Enteric tube tip in the stomach. Dilated loops of small bowel in the midabdomen which may be due to ileus or obstruction. Electronically Signed: Chester Ventura, at 16:57 EST Tel , Service support , Abdomen X-Ray 10/21/19 05:55 IMPRESSION: The gas pattern is unremarkable. Electronically Signed: Rl Pierre, at 10:33 EST , Service support , Chest X-Ray 10/21/19 05:55 IMPRESSION: Mild residual increased markings at the lung bases suggestive of atelectasis. Improved aeration of the left mid lung infiltrate. Electronically Signed: Rl Pierre, at 11:01 EST , Service support , Medical Necessity - Tobacco Use Smoking Status: Former smoker Tobacco Use: Pipe Assessment/Plan All Active Problems (Last Reviewed 10/20/19 @ 17:07 by eL Burgos DO) Angioedema (Acute) Nonischemic cardiomyopathy (Resolved) RECOMMENDATIONS: 1. Continue current supportive measures. Continue patient on trach collar supplemental O2 as tolerated. 2. Will attempt capping trial as well. 3. ENT to evaluate later this morning. 4. Start tube feeds today. 5. Continue steroids, Pepcid and Benadryl. IMPRESSIONS: 1. Acute combined respiratory failure secondary to upper airway compromise in the setting of angioedema, now POD #2 s/p emergent tracheostomy Attempts to place a secure airway x3 were unsuccessful in the emergency department. The patient was subsequently transferred to the OR to undergo emergent surgical airway placement. The patient was able to be transitioned from a spontaneous mode of mechanical ventilation over to trach collar supplemental O2, which will be weaned to maintain an oxygen saturation at or above 90%. We will plan to attempt capping trial later this morning as well. ENT has been consulted to evaluate patient. Tube feeds can be started from my perspective. We will continue current supportive measures including IV steroids, Benadryl and Pepcid. The exact etiology for the patient's angioedema and subsequent airway compromise is a bit unclear. 2. Obesity/hypertension/nonischemic cardiomyopathy/IBS/GERD/BPH/neuropathy Complicates care, management, recovery and prognosis. Okay to restart home medications from my perspective. TIME: 38 minutes of critical care time, independent of procedures, was spent addressing the patient's acute combined respiratory failure secondary to upper airway compromise, angioedema, review of all data and collaboration with the care team. ([id number]) Code Visit 9xxxx: [id number] Critical care first hour
--- NOTE | 2019-10-22 07:53 | PN_ITS ---
Patient Problems: Active and Suspected Problems (Last Reviewed 10/20/19 @ 17:07 by Le Burgos DO) Angioedema (Acute) Subjective: Follow-up on acute respiratory failure: Patient was seen and examined. No acute events overnight. Remains on tracheostomy collar on 35% FiO2 with 9L oxygen Patient shakes his head to no new complaints. He has an ice pack over his chest for some chest discomfort which is improved. Vitals/I&O's: Vital Signs Temp Pulse Resp BP Pulse Ox 99.5 F H 76 14 142/83 H 100 10/22/19 06:00 10/22/19 06:00 10/22/19 06:00 10/22/19 06:00 10/22/19 06:00 Oxygen Delivery Method Mechanical Ventilator Weight: 148.6 kg Body Mass Index (BMI) 51.2 Intake and Output for Last 24 Hours 10/20/19 10/21/19 10/22/19 23:59 23:59 23:59 Intake Total 264.00 / 275.00 972.29 / 975.79 415.25 / 415.25 Output Total 300 / 600 2049 / 2049 300 / 300 Balance -36.00 / -325.00 -1077.71 / -1074.21 115.25 / 115.25 General: Alert, Oriented x3, Cooperative, No apparent distress, - - morbidly obese HEENT: Atraumatic, PERRLA, EOMI, Normocephalic, - - s/p tracheostomy, on tracheostomy collar Oral: Moist Mucosa Neck: Supple Lungs: Clear to auscultation - anteriorly, Normal air movement Cardiovascular: Regular rate, Regular Rhythm, Normal S1, Normal S2, No murmurs Abdomen: Bowel Sounds Present, Soft, Non Tender, Non-Distended, No Hepato- splenomegaly Extremities: Edema - Trace bilateral edema Skin: No rashes, No breakdown Musculoskeletal: No Tenderness to Palpation of Joints or Extremities Lymphatic: No Cervical, Supraclavicular, or Inguinal Adenopathy Neurological: Cranial nerves II-XII grossly intact, Neuro grossly intact Psych/Mental Status: Normal Affect, Appropriate Laboratory Results 10/22/19 04:00: WBC 16.9 H, RBC 4.05 L, Hgb 13.3, Hct 39.6 L, MCV 97.8 H, MCH 32.8 H, MCHC 33.6, RDW Std Deviation 48.5 H, RDW Coeff of Jaquan 13.6, Plt Count 214, MPV 9.7, Immature Gran % (Auto) 0.700, Neut % (Auto) 87.2 H, Lymph % (Auto) 4.3 L, [place] % (Auto) 7.7, Eos % (Auto) 0.0, Baso % (Auto) 0.1, Absolute Neuts (auto) 14.7 H, Absolute Lymphs (auto) 0.73 L, Nucleated RBC % 0 10/22/19 04:00: Sodium 144, Potassium 4.0, Chloride 108 H, Carbon Dioxide 29.0, Anion Gap 7, BUN 19 H, Creatinine 0.81, Estim Creat Clear Calc 87.52, Est GFR (MDRD) Af Amer 124, Est GFR (MDRD) Non-Af 103, BUN/Creatinine Ratio 23.3 H, Glucose 136 H, Calcium 8.1 L, Magnesium 2.2 Current Medications Acetaminophen (Tylenol Liquid) 650 mg GT Q4H PRN PRN PRN Reason: Pain or Fever Last Admin: 10/22/19 04:11 Dose: 650 mg Documented by: Albuterol Sulfate (Ventolin Aerosols) 2.5 mg INHALATION Q2H PRN PRN PRN Reason: SOB, WHEEZE Last Admin: 10/21/19 19:00 Dose: 2.5 mg Documented by: Carvedilol (Coreg) 3.125 mg PO BID [facility] Last Admin: 10/21/19 20:56 Dose: 3.125 mg Documented by: Chlorhexidine Gluconate () 15 ml PO BID [facility] Last Admin: 10/21/19 20:57 Dose: 15 ml Documented by: Dexamethasone Sodium Phosphate (Decadron) 4 mg IV Q8 [facility] Last Admin: 10/22/19 04:53 Dose: 4 mg Documented by: Diphenhydramine HCl (Benadryl) 25 mg IV Q6 [facility] Last Admin: 10/22/19 04:53 Dose: 25 mg Documented by: Heparin Sodium (Porcine) (Heparin Na) 5,000 unit SC Q8 [facility] Last Admin: 10/22/19 04:53 Dose: 5,000 unit Documented by: Propofol (Diprivan) 1,000 mg in 100 mls @ 8.88 mls/hr CONT INF .[id number] [facility]; Protocol Last Admin: 10/22/19 02:34 Dose: Not Given Documented by: Fentanyl () 100 mls @ 5 mls/hr IV UD [facility]; Protocol Last Titration: 10/22/19 05:56 Dose: 150 mcg/hr, 15 mls/hr Documented by: Sodium Chloride () 1,000 mls @ 0 mls/hr IV .Q0M DA Famotidine 20 mg/ Sodium (Chloride) 10 mls @ 300 mls/hr IV Q12 [facility] Last Infusion: 10/21/19 20:59 Dose: Infused Documented by: Ampicillin Sodium/Sulbactam (Sodium 3 gm/ Sodium Chloride) 112 mls @ 150 mls/hr IV Q6 [facility] Last Infusion: 10/22/19 05:36 Dose: Infused Documented by: Ondansetron HCl (Zofran) 4 mg IV Q6H PRN PRN PRN Reason: Nausea Sodium Chloride () 10 - 40 ml IV UD PRN PRN Reason: SALINE FLUSH Last Admin: 10/22/19 04:51 Dose: 30 ml Documented by: STROKE Vital Signs/Narrative: Vital Signs Temp Pulse Resp BP Pulse Ox 10/22/19 06:00 99.5 F H 76 14 142/83 H 100 10/22/19 05:40 76 12 100 10/22/19 05:00 99.5 F H 92 16 155/87 H 100 10/22/19 04:10 76 10 L 100 10/22/19 04:00 99.4 F H 74 10 L 154/91 H 99 Medical Necessity - Tobacco Use Smoking Status: Former smoker Tobacco Use: Pipe Assessment/Plan All Active Problems (Last Reviewed 10/20/19 @ 17:07 by Le Burgos DO) Angioedema (Acute) Nonischemic cardiomyopathy (Resolved) 1. Acute hypoxemic/hypercapnic respiratory failure 2/2 angioedema s/p Emergent Tracheostomy Patient currently is on trach collar with 9 L oxygen 35% FiO2 Will discontinue Unasyn as there is no infiltrates on chest x-ray ENT and pulmonology following We will follow-up on recommendations 2. Angioedema 2/2 unknown cause, off lisinopril No oropharyngeal edema seen, continues to be on Benadryl and Methasone We will continue to monitor 3. S/p cardiopulmonary arrest, likely secondary to acute hypoxic/hypercapnic respiratory failure We will continue to monitor 4. Hypertension, controlled, on carvedilol Will continue to monitor 4. GERD on famotidine 5. BPH, post Arias catheter, Flomax on hold 6. Morbid obesity, lifestyle modification will be stressed at discharge 7. Neuropathy, gabapentin on hold Code Visit Inpatient E&M: 78660 Subs Hosp L2
--- NOTE | 2019-10-22 09:35 | CPS ---
Patient placed on Passey Mur valve at 0914, patient maintained SpO2 but felt SOB after 4 min on the valve. Valve taken off. Patient did not have strong voice when the valve was on. Gamaliel BRINK
[2019-10-22 09:50] LABS: Hemoglobin A1c 5.1 % (4.2-6.3)
[2019-10-22] MEDS: Carvedilol 3.125 MG TABLET PO (10:17)
[2019-10-22] MEDS: Famotidine 200 MG/20 ML MDV 20 MG in 0.9% Normal Saline (Pres. free 8 ML 300 MG IV ×2 (10:17→21:25)
[2019-10-22] MEDS: Vital AF 1.2 Cal Liquid 1,000 ML 75 ML GT (10:19)
--- NOTE | 2019-10-22 12:15 | CON.PCM_ITS ---
Problem List (1) Angioedema Status: Acute Reason for Consult Date of Consultation: 10/22/19 History of Present Illness: The patient is a 59 year old M who underwent an emergent tracheostomy 48 hours ago for presumed angioedema. patient has been doing well with no acute issues since surgery; he failed a trach capping trial today. consulted to evaluate larynx for decannulation. Past Medical History Past Medical History (Chronic Problems): Chronic Problems (Last Reviewed 10/20/19 @ 17:07 by Le Burgos DO) Hyperlipemia (Chronic) Palpitations (Chronic) Pulmonary hypertension (Chronic) Pure hypercholesterolemia (Chronic) Essential (primary) hypertension (Chronic) Restless leg syndrome (Chronic) Obesity (Chronic) Irritable bowel syndrome (Chronic) Medical History: Medical History (Last Reviewed 10/20/19 @ 17:07 by Le Burgos DO) Hyperlipemia (Chronic) E78.5 Palpitations (Chronic) R00.2 Nonischemic cardiomyopathy (Resolved) I42.8 Pulmonary hypertension (Chronic) I27.20 Pure hypercholesterolemia (Chronic) E78.00 Essential (primary) hypertension (Chronic) I10 Restless leg syndrome (Chronic) Obesity (Chronic) Irritable bowel syndrome (Chronic) Allergies No Known Allergies Allergy (Verified 10/20/19 12:53) Home Medications: Ambulatory Orders Medication Instructions Recorded Lansoprazole [Prevacid] 15 mg PO DAILY 05/05/14 celecoxib 200 mg capsule 200 mg PO QDAY 03/17/18 lisinopril 20 1 tab PO QDAY 03/17/18 mg-hydrochlorothiazide 12.5 mg tablet diphenhydramine 25 mg capsule 25 mg PO QHS PRN 11/06/18 tamsulosin 0.4 mg capsule 0.4 mg PO DAILY 90 Days #90 cap 11/06/18 Citalopram [Celexa] 20 mg PO DAILY 10/20/19 Gabapentin 1,200 mg PO QHS 10/20/19 Surgical History: Surgical History (Last Updated 11/06/18 @ 13:54 by Nallely Pacheco) History of carpal tunnel release of both wrists Z98.890 History of cholecystectomy Z90.49 History of open reduction and internal fixation (ORIF) procedure Z98.890 right knee Status post right inguinal hernia repair Z98.890, Z87.19 Surgical History: - - Right knee surgery, hernia repair, Tracheostomy (10/20/19) Smoking Status: Former smoker Tobacco Use: Pipe Review of Systems Constitutional: Denies: Chills, Fever, Weight Change HEENT: Denies: Head Aches, Sinus Congestion, Sinus Drainage Cardiovascular: Denies: Chest Pain, Palpitations Respiratory: Denies: Cough, Shortness of breath at rest, Sputum production Patient Problems: Active and Suspected Problems (Last Reviewed 10/20/19 @ 17:07 by Le Burgos DO) Angioedema (Acute) - Physical Exam Vitals/I&O's: Vital Signs Temp Pulse Resp BP Pulse Ox 99.3 F H 96 18 147/93 H 99 10/22/19 11:00 10/22/19 11:53 10/22/19 11:53 10/22/19 11:00 10/22/19 11:53 Oxygen Flow Rate (L/min) 4 Oxygen Delivery Method Trach Collar Weight: 148.6 kg Body Mass Index (BMI) 51.2 Intake and Output for Last 24 Hours 10/20/19 10/21/19 10/22/19 23:59 23:59 23:59 Intake Total 264.00 / 275.00 972.29 / 975.79 512.92 / 512.92 Output Total 300 / 600 2049 / 2049 300 / 300 Balance -36.00 / -325.00 -1077.71 / -1074.21 212.92 / 212.92 General: Alert, Oriented x3, Cooperative Oral: Moist Mucosa Neck: No Nodes, - - #[address] Lungs: No wheeze Laboratory Results 10/22/19 04:00: WBC 16.9 H, RBC 4.05 L, Hgb 13.3, Hct 39.6 L, MCV 97.8 H, MCH 32.8 H, MCHC 33.6, RDW Std Deviation 48.5 H, RDW Coeff of Jaquan 13.6, Plt Count 214, MPV 9.7, Immature Gran % (Auto) 0.700, Neut % (Auto) 87.2 H, Lymph % (Auto) 4.3 L, [place] % (Auto) 7.7, Eos % (Auto) 0.0, Baso % (Auto) 0.1, Absolute Neuts (auto) 14.7 H, Absolute Lymphs (auto) 0.73 L, Nucleated RBC % 0 11/21/19 04:00: Sodium 144, Potassium 4.0, Chloride 108 H, Carbon Dioxide 29.0, Anion Gap 7, BUN 19 H, Creatinine 0.81, Estim Creat Clear Calc 87.52, Est GFR (MDRD) Af Amer 124, Est GFR (MDRD) Non-Af 103, BUN/Creatinine Ratio 23.3 H, Glucose 136 H, Calcium 8.1 L, Magnesium 2.2 10/22/19 04:00: Hemoglobin A1c 5.1 Current Medications Acetaminophen (Tylenol Liquid) 650 mg GT Q4H PRN PRN PRN Reason: Pain or Fever Last Admin: 10/22/19 04:11 Dose: 650 mg Documented by: Albuterol Sulfate (Ventolin Aerosols) 2.5 mg INHALATION Q2H PRN PRN PRN Reason: SOB, WHEEZE Last Admin: 10/21/19 19:00 Dose: 2.5 mg Documented by: Carvedilol (Coreg) 3.125 mg PO BID [facility] Last Admin: 10/22/19 10:17 Dose: 3.125 mg Documented by: Chlorhexidine Gluconate () 15 ml PO BID [facility] Last Admin: 10/22/19 10:05 Dose: Not Given Documented by: Dexamethasone Sodium Phosphate (Decadron) 4 mg IV Q8 [facility] Last Admin: 10/22/19 04:53 Dose: 4 mg Documented by: Diphenhydramine HCl (Benadryl) 25 mg IV Q6 DA Last Admin: 10/22/19 04:53 Dose: 25 mg Documented by: Heparin Sodium (Porcine) (Heparin Na) 5,000 unit SC Q8 DA Last Admin: 10/22/19 04:53 Dose: 5,000 unit Documented by: Fentanyl () 100 mls @ 5 mls/hr IV UD [facility]; Protocol Last Titration: 10/22/19 10:00 Dose: 100 mcg/hr, 10 mls/hr Documented by: Sodium Chloride () 1,000 mls @ 0 mls/hr IV .Q0M DA Famotidine 20 mg/ Sodium (Chloride) 10 mls @ 300 mls/hr IV Q12 [facility] Last Infusion: 10/22/19 10:30 Dose: Infused Documented by: Enteral Nutritional Formula (Vital Af 1.2 [place] Liquid) 1,000 mls @ 75 mls/hr GT .[id number] DA Last Admin: 10/22/19 10:19 Dose: 75 mls/hr Documented by: Ondansetron HCl (Zofran) 4 mg IV Q6H PRN PRN PRN Reason: Nausea Sodium Chloride () 10 - 40 ml IV UD PRN PRN Reason: SALINE FLUSH Last Admin: 10/22/19 04:51 Dose: 30 ml Documented by: Assessment/Plan All Active Problems (Last Reviewed 10/20/19 @ 17:07 by Le Burgos DO) Angioedema (Acute) Nonischemic cardiomyopathy (Resolved) 59 year old male 48 hours s/p emergent tracheostomy for angioedema -scope exam performed at bedside. glottis erythematous but crisp, cords mobile. bilateral posterior arytenoid and postcricoid edema. likely dramatic improvement, would reassess daily with scope exams. edema may resolve slightly faster if able to remove OG tube. discussed w/ dr mead. -will return tomorrow to re-scope
--- NOTE | 2019-10-22 12:21 | PCM.OPRPT ---
Problem List (1) Angioedema Status: Acute Report of Operation Date of Procedure: 10/22/19 Pre-Operative Diagnosis: angioedema Post-Operative Diagnosis: angioedema Surgery/Procedure Performed:: flexible laryngoscopy Type of Anesthesia:: Local Description of Procedure: the flexible laryngoscope was inserted into the left nasal cavity. the posterior pharynx was normal. the epiglottis was mildly edematous. the posterior arytenoids and the postcricoid area had watery edema. the anterior 2/3 of the glottis was visualized. bilateral cords mobile. cords slightly erythematous with no edema. visualized subglottis clear.
[2019-10-22] MEDS: fentaNYL drip 100 ML 10 MCG IV (13:29)
[2019-10-22] MEDS: Albuterol 2.5 MG/3 ML VIAL.NEB. INHALATION (22:06)
[2019-10-23] VITALS (28 sets, daily range): BP systolic 111–190; BP diastolic 55–149; PULSE 62–95; RESP 11–25; TEMP 36.4–37.2; O2SAT 93–100
[2019-10-23] MEDS: Labetalol 20 MG/4 ML Vial 10 MG IV ×4 (04:14→23:06)
[2019-10-23 04:18] LABS: Absolute Lymphocyte Count 0.77 X10^3/uL (0.83-4.51); Absolute Neutrophil Count 13.1 X10^3/uL (2.0-7.7); Basophil# 0.02 X10^3/uL; Basophil% 0.1 % (0-1); Hematocrit 39.8 % (40-54); Hemoglobin 13.2 g/dL (13.0-16.5); Lymphocyte # 0.77 X10^3/ul (4.0); Lymphocyte % 5.1 % (19-41); Mean Corp Hgb Conc 33.2 g/dL (32-36); Mean Corpuscular Hgb 32.2 pg (27.0-32.0); Mean Corpuscular Volume 97.1 fL (80-94); Mean Platelet Vol. 9.7 fl (6.2-12.0); Monocyte# 1.17 X10^3/uL; Monocyte% 7.7 % (0-10); NRBC Flagged by Analyzer 0 % (0-5); Neutrophil # 13.11 X10^3/uL (2.7-7.7); Neutrophil % 86.4 % (47-70); Platelet Count 207 K/mm3 (150-450); RBC Distribution Width CV 13.5 % (11.6-14.6); RBC Distribution Width SD 48.4 fl (35.1-43.9); White Blood Count 15.2 K/mm3 (4.4-11.0)
[2019-10-23 04:30] LABS: Anion Gap 8 (5-15); BUN 25 mg/dL (7-18); BUN/Creat Ratio 25.4 RATIO (10-20); Calcium,Total 8.6 mg/dL (8.5-10.1); Chloride 108 mmol/L (98-107); Creatinine, Serum 0.99 mg/dL (0.70-1.30); EST Glomerular Filtration Rate 82 mL/min (>60); Est Glom Filt Rate - Afr Amer 99 mL/min (>60); Glucose 135 mg/dL (74-106); Potassium 3.9 mmol/L (3.5-5.1); Sodium Level 144 mmol/L (136-145)
[2019-10-23] MEDS: DiphenhydrAMINE 50 MG/ML Syringe 25 MG IV ×4 (04:55→23:06)
[2019-10-23] MEDS: dexAMETHasone 4 MG/ML Vial IV ×3 (04:56→21:19)
[2019-10-23] MEDS: Heparin Injection (Vial) 5,000 UNIT/ML VIAL 5000 UNIT SC ×3 (04:56→21:19)
--- NOTE | 2019-10-23 06:30 | PCM.PN.INT ---
Subjective: The patient was seen and examined at the bedside this morning. Events from the last 24 hours have been reviewed. The patient is currently afebrile, hemodynamically stable and maintaining appropriate oxygen saturations on a trach collar with an FiO2 of 28%. The patient was evaluated by speech therapy yesterday who recommended that the patient remain n.p.o. due to difficulty with swallowing. Objective: The patient's most recent lab work, culture data and imaging studies have all been personally reviewed. General: Alert, Cooperative, No apparent distress HEENT: Atraumatic, PERRLA, Normocephalic Oral: No Gingival or Mucosal Lesions/ Ulcerations Neck: Supple, No Nodes, Trachea Midline, - - Tracheostomy site intact Lungs: No rhonchi, No wheeze, No rales, Diminished Cardiovascular: Regular rate, Regular Rhythm, Normal S1, Normal S2, No murmurs Abdomen: Bowel Sounds Present, Soft, Non Tender, Obese Extremities: No clubbing, No cyanosis, No edema Skin: No breakdown Musculoskeletal: No Tenderness to Palpation of Joints or Extremities Lymphatic: No Cervical, Supraclavicular, or Inguinal Adenopathy Neurological: Cranial nerves II-XII grossly intact, Neuro grossly intact Psych/Mental Status: Normal Affect, Appropriate Vital Signs Temp Pulse Resp BP Pulse Ox 98.6 F 68 14 176/149 H 99 10/23/19 04:00 10/23/19 06:00 10/23/19 06:00 10/23/19 06:00 10/23/19 06:00 Oxygen Flow Rate (L/min) 8 Oxygen Delivery Method Trach Collar Weight: 319 lb 10.724 oz Body Mass Index (BMI) 51.2 Intake and Output for Last 24 Hours 10/21/19 10/22/19 10/23/19 23:59 23:59 23:59 Intake Total 972.29 / 975.79 858.05 / 858.05 0 / 0 Output Total 2049 / 2049 875 / 875 200 / 200 Balance -1077.71 / -1074.21 -16.95 / -16.95 -200 / -200 Labs (Last 48 Hours) 10/21/19 10/21/19 10/22/19 06:06 06:10 04:00 WBC 16.9 H RBC 4.05 L Hgb 13.3 Hct 39.6 L MCV 97.8 H MCH 32.8 H MCHC 33.6 RDW Std Deviation 48.5 H RDW Coeff of Jaquan 13.6 Plt Count 214 MPV 9.7 Immature Gran % (Auto) 0.700 Neut % (Auto) 87.2 H Lymph % (Auto) 4.3 L [place] % (Auto) 7.7 Eos % (Auto) 0.0 Baso % (Auto) 0.1 Absolute Neuts (auto) 14.7 H Absolute Lymphs (auto) 0.73 L Nucleated RBC % 0 Specimen Type Cancelled ROSALEE Sample Site Cancelled L Radial pH Cancelled 7.39 Bicarbonate Actual Cancelled 27.2 H POC Total CO2 Cancelled 29 Base Excess Cancelled 2 O2 Saturation Cancelled 97 O2 % Cancelled 40 ABG pCO2 Cancelled 45.4 H ABG pO2 Cancelled 89 [place] Test Cancelled NA Respiration Rate Cancelled 18 O2 Delivery Device Cancelled Vent Liter Flow Cancelled Minute Volume Cancelled 9.00 Vent Mode Cancelled A-C Tidal Volume Cancelled 500 POC PEEP Cancelled 8 POC Pressure Suppt Cancelled Pressure High Cancelled Pressure Low Cancelled Time High Cancelled Time Low Cancelled EPAP Cancelled IPAP Cancelled Blood Gas Notified Whom Cancelled ICU MD Blood Gas Notified Time Cancelled Sodium Potassium Chloride Carbon Dioxide Anion Gap BUN Creatinine Estim Creat Clear Calc Est GFR (MDRD) Af Amer Est GFR (MDRD) Non-Af BUN/Creatinine Ratio Glucose Hemoglobin A1c Calcium Magnesium 10/22/19 10/22/19 10/23/19 04:00 04:00 04:10 WBC 15.2 H RBC 4.10 L Hgb 13.2 Hct 39.8 L MCV 97.1 H MCH 32.2 H MCHC 33.2 RDW Std Deviation 48.4 H RDW Coeff of Jaquan 13.5 Plt Count 207 MPV 9.7 Immature Gran % (Auto) 0.700 Neut % (Auto) 86.4 H Lymph % (Auto) 5.1 L [place] % (Auto) 7.7 Eos % (Auto) 0.0 Baso % (Auto) 0.1 Absolute Neuts (auto) 13.1 H Absolute Lymphs (auto) 0.77 L Nucleated RBC % 0 Specimen Type Sample Site pH Bicarbonate Actual POC Total CO2 Base Excess O2 Saturation O2 % ABG pCO2 ABG pO2 [place] Test Respiration Rate O2 Delivery Device Liter Flow Minute Volume Vent Mode Tidal Volume POC PEEP POC Pressure Suppt Pressure High Pressure Low Time High Time Low EPAP IPAP Blood Gas Notified Whom Blood Gas Notified Time Sodium 144 Potassium 4.0 Chloride 108 H Carbon Dioxide 29.0 Anion Gap 7 BUN 19 H Creatinine 0.81 Estim Creat Clear Calc 87.52 Est GFR (MDRD) Af Amer 124 Est GFR (MDRD) Non-Af 103 BUN/Creatinine Ratio 23.3 H Glucose 136 H Hemoglobin A1c 5.1 Calcium 8.1 L Magnesium 2.2 10/23/19 04:10 WBC RBC Hgb Hct MCV MCH MCHC RDW Std Deviation RDW Coeff of Jaquan Plt Count MPV Immature Gran % (Auto) Neut % (Auto) Lymph % (Auto) [place] % (Auto) Eos % (Auto) Baso % (Auto) Absolute Neuts (auto) Absolute Lymphs (auto) Nucleated RBC % Specimen Type Sample Site pH Bicarbonate Actual POC Total CO2 Base Excess O2 Saturation O2 % ABG pCO2 ABG pO2 [place] Test Respiration Rate O2 Delivery Device Liter Flow Minute Volume Vent Mode Tidal Volume POC PEEP POC Pressure Suppt Pressure High Pressure Low Time High Time Low EPAP IPAP Blood Gas Notified Whom Blood Gas Notified Time Sodium 144 Potassium 3.9 Chloride 108 H Carbon Dioxide 28.0 Anion Gap 8 BUN 25 H Creatinine 0.99 Estim Creat Clear Calc 71.60 Est GFR (MDRD) Af Amer 99 Est GFR (MDRD) Non-Af 82 BUN/Creatinine Ratio 25.4 H Glucose 135 H Hemoglobin A1c Calcium 8.6 Magnesium Clinical Impression(s) from Imaging Studies Chest X-Ray 10/20/19 16:00 IMPRESSION: Satisfactory position of the support lines and tubes. Patchy opacity in the left midlung which is likely infectious in etiology. Electronically Signed: Chester Ventura, at 16:31 EST Tel , Service support , KUB X-Ray 10/20/19 16:14 IMPRESSION: Enteric tube tip in the stomach. Dilated loops of small bowel in the midabdomen which may be due to ileus or obstruction. Electronically Signed: Chester Ventura, at 16:57 EST Tel , Service support , Abdomen X-Ray 10/21/19 05:55 IMPRESSION: The gas pattern is unremarkable. Electronically Signed: Rl Pierre, at 10:33 EST , Service support , Chest X-Ray 10/21/19 05:55 IMPRESSION: Mild residual increased markings at the lung bases suggestive of atelectasis. Improved aeration of the left mid lung infiltrate. Electronically Signed: Rl Pierre, at 11:01 EST , Service support , Medical Necessity - Tobacco Use Smoking Status: Former smoker Tobacco Use: Pipe Assessment/Plan All Active Problems (Last Reviewed 10/20/19 @ 17:07 by Le Burgos DO) Angioedema (Acute) Nonischemic cardiomyopathy (Resolved) RECOMMENDATIONS: 1. Await reevaluation by ENT. 2. Speech therapy reevaluation prior to dietary advancement. 3. Increase as needed labetalol dose. 4. Continue steroids, Pepcid and Benadryl. This can likely be discontinued tomorrow. IMPRESSIONS: 1. Acute combined respiratory failure secondary to upper airway compromise in the setting of angioedema, now POD #3 s/p emergent tracheostomy Attempts to place a secure airway x3 were unsuccessful in the emergency department. The patient was subsequently transferred to the OR to undergo emergent surgical airway placement. The patient was able to be transitioned from a spontaneous mode of mechanical ventilation over to trach collar supplemental O2, which will be weaned to maintain an oxygen saturation at or above 90%. ENT is following to assist with decannulation efforts. Continue IV steroids, Benadryl and Pepcid. Awaiting speech therapy reevaluation prior to any form of dietary advancement. 2. Obesity/hypertension/nonischemic cardiomyopathy/IBS/GERD/BPH/neuropathy Complicates care, management, recovery and prognosis. Okay to continue home medications from my perspective. This note was generated with [employer] software. It may contain incorrect words, spelling, and punctuation that were not noted in checking the note before signing. Code Visit Inpatient E&M: 64078 Subs Hosp L3
--- NOTE | 2019-10-23 10:26 | PN_ITS ---
Patient Problems: Active and Suspected Problems (Last Reviewed 10/20/19 @ 17:07 by Le Burgos DO) Angioedema (Acute) Subjective: Follow-up on acute hypoxic/hypercapnic respiratory failure: Patient was seen and examined. He underwent flexible laryngoscopy yesterday by ENT. Epiglottis was said to be mildly edema does as well as the posterior arytenoids and postcricoid area. ENT to review again. Patient denied any new complaints. His pain is 5 out of 10 today, mostly around the tracheostomy site. Seen by Speech therapy and given ice chips. Remains on trach collar with FiO2 28% total of 9 L. Objective: Physical exam: General: Alert, Oriented x3, Cooperative, No apparent distress, - - morbidly obese HEENT: Atraumatic, PERRLA, EOMI, Normocephalic, - - s/p tracheostomy, on tracheostomy collar Oral: Moist Mucosa Neck: Supple Lungs: Clear to auscultation - anteriorly, Normal air movement Cardiovascular: Regular rate, Regular Rhythm, Normal S1, Normal S2, No murmurs Abdomen: Bowel Sounds Present, Soft, Non Tender, Non-Distended, No Hepato- splenomegaly Extremities: Edema - Trace bilateral edema Skin: No rashes, No breakdown Musculoskeletal: No Tenderness to Palpation of Joints or Extremities Lymphatic: No Cervical, Supraclavicular, or Inguinal Adenopathy Neurological: Cranial nerves II-XII grossly intact, Neuro grossly intact Psych/Mental Status: Normal Affect, Appropriate Vitals/I&O's: Vital Signs Temp Pulse Resp BP Pulse Ox 97.9 F 78 18 178/97 H 96 10/23/19 08:00 10/23/19 09:00 10/23/19 09:00 10/23/19 09:00 10/23/19 09:00 Oxygen Flow Rate (L/min) 8 Oxygen Delivery Method Trach Collar Weight: 145 kg Body Mass Index (BMI) 51.2 Intake and Output for Last 24 Hours 10/21/19 10/22/19 10/23/19 23:59 23:59 23:59 Intake Total 972.29 / 975.79 858.05 / 858.05 0 / 0 Output Total 2049 / 2049 875 / 875 200 / 200 Balance -1077.71 / -1074.21 -16.95 / -16.95 -200 / -200 Laboratory Results 10/23/19 04:10: WBC 15.2 H, RBC 4.10 L, Hgb 13.2, Hct 39.8 L, MCV 97.1 H, MCH 32.2 H, MCHC 33.2, RDW Std Deviation 48.4 H, RDW Coeff of Jaquan 13.5, Plt Count 207, MPV 9.7, Immature Gran % (Auto) 0.700, Neut % (Auto) 86.4 H, Lymph % (Auto) 5.1 L, [place] % (Auto) 7.7, Eos % (Auto) 0.0, Baso % (Auto) 0.1, Absolute Neuts (auto) 13.1 H, Absolute Lymphs (auto) 0.77 L, Nucleated RBC % 0 10/23/19 04:10: Sodium 144, Potassium 3.9, Chloride 108 H, Carbon Dioxide 28.0, Anion Gap 8, BUN 25 H, Creatinine 0.99, Estim Creat Clear Calc 71.60, Est GFR (MDRD) Af Amer 99, Est GFR (MDRD) Non-Af 82, BUN/Creatinine Ratio 25.4 H, Glucose 135 H, Calcium 8.6 Current Medications Acetaminophen (Tylenol Liquid) 650 mg GT Q4H PRN PRN PRN Reason: Pain or Fever Last Admin: 10/22/19 04:11 Dose: 650 mg Documented by: Albuterol Sulfate (Ventolin Aerosols) 2.5 mg INHALATION Q2H PRN PRN PRN Reason: SOB, WHEEZE Last Admin: 10/22/19 22:06 Dose: 2.5 mg Documented by: Carvedilol (Coreg) 3.125 mg PO BID [facility] Last Admin: 10/22/19 20:54 Dose: Not Given Documented by: Chlorhexidine Gluconate () 15 ml PO BID [facility] Last Admin: 10/22/19 20:54 Dose: Not Given Documented by: Dexamethasone Sodium Phosphate (Decadron) 4 mg IV Q8 [facility] Last Admin: 10/23/19 04:56 Dose: 4 mg Documented by: Diphenhydramine HCl (Benadryl) 25 mg IV Q6 [facility] Last Admin: 10/23/19 04:55 Dose: 25 mg Documented by: Heparin Sodium (Porcine) (Heparin Na) 5,000 unit SC Q8 [facility] Last Admin: 10/23/19 04:56 Dose: 5,000 unit Documented by: Fentanyl () 100 mls @ 5 mls/hr IV UD AD; Protocol Last Titration: 10/23/19 07:02 Dose: 0 mcg/hr, 0 mls/hr Documented by: Sodium Chloride () 1,000 mls @ 0 mls/hr IV .Q0M DA Famotidine 20 mg/ Sodium (Chloride) 10 mls @ 300 mls/hr IV Q12 DA Last Infusion: 10/22/19 21:27 Dose: Infused Documented by: Enteral Nutritional Formula (Vital Af 1.2 Ramsey Liquid) 1,000 mls @ 75 mls/hr GT .[id number] DA Last Admin: 10/22/19 22:56 Dose: Not Given Documented by: Labetalol HCl (Trandate) 10 mg IV Q4H PRN PRN PRN Reason: SBP>180 Last Admin: 10/23/19 04:14 Dose: 10 mg Documented by: Ondansetron HCl (Zofran) 4 mg IV Q6H PRN PRN PRN Reason: Nausea Sodium Chloride () 10 - 40 ml IV UD PRN PRN Reason: SALINE FLUSH Last Admin: 10/22/19 04:51 Dose: 30 ml Documented by: STROKE Vital Signs/Narrative: Vital Signs Temp Pulse Resp BP Pulse Ox 10/23/19 09:00 78 18 178/97 H 96 10/23/19 08:00 97.9 F 72 24 H 169/92 H 99 10/23/19 07:32 70 10/23/19 07:00 67 17 171/99 H 97 Medical Necessity - Tobacco Use Smoking Status: Former smoker Tobacco Use: Pipe Assessment/Plan All Active Problems (Last Reviewed 10/20/19 @ 17:07 by Le Burgos DO) Angioedema (Acute) Nonischemic cardiomyopathy (Resolved) 1. Acute hypoxemic/hypercapnic respiratory failure 2/2 angioedema s/p Emergent Tracheostomy Oxygen requirements have decreased with FiO2 now on 28%. At this post flexible laryngoscopy yesterday. ENT following. Repeat flexible laryngoscopy planned for today. Follow-up on recommendations. 2. Angioedema 2/2 unknown cause, off lisinopril No oropharyngeal edema seen, continues to be on Benadryl and Methasone We will continue to monitor 3. S/p cardiopulmonary arrest, likely secondary to acute hypoxic/hypercapnic respiratory failure We will continue to monitor 4. Hypertension, pressure is uncontrolled. Patient is unable to take oral carvedilol Continue on PRN labetalol for systolic blood pressure more than 160 4. GERD on famotidine 5. BPH, post Arias catheter, Flomax on hold 6. Morbid obesity, lifestyle modification will be stressed at discharge 7. Neuropathy, gabapentin on hold Code Visit Inpatient E&M: 08158 Subs Hosp L3
[2019-10-23] MEDS: Famotidine 200 MG/20 ML MDV 20 MG in 0.9% Normal Saline (Pres. free 8 ML 300 MG IV ×2 (10:54→21:19)
[2019-10-23] MEDS: 0.9% Saline Lock 10 ML Syringe IV ×4 (10:55→16:32)
--- NOTE | 2019-10-23 11:38 | PCM.PROGNOTE ---
Patient Problems: Active and Suspected Problems (Last Reviewed 10/20/19 @ 17:07 by Le Burgos DO) Angioedema (Acute) Subjective: no issues overnight. off of ventilatory support. - Physical Exam Vitals/I&O's: Vital Signs Temp Pulse Resp BP Pulse Ox 98.4 F 66 18 166/98 H 100 10/23/19 10:00 10/23/19 10:00 10/23/19 10:00 10/23/19 10:00 10/23/19 10:00 Oxygen Flow Rate (L/min) 28 Oxygen Delivery Method Trach Collar Weight: 145 kg Body Mass Index (BMI) 51.2 Intake and Output for Last 24 Hours 10/21/19 10/22/19 10/23/19 23:59 23:59 23:59 Intake Total 972.29 / 975.79 858.05 / 858.05 Output Total 2049 / 2049 875 / 875 200 / 200 Balance -1077.71 / -1074.21 -16.95 / -16.95 -190 / -190 General: Alert, Oriented x3, Cooperative Oral: Moist Mucosa, No Gingival or Mucosal Lesions/ Ulcerations Neck: - - 6DCT in place Lungs: No wheeze Laboratory Results 10/23/19 04:10: WBC 15.2 H, RBC 4.10 L, Hgb 13.2, Hct 39.8 L, MCV 97.1 H, MCH 32.2 H, MCHC 33.2, RDW Std Deviation 48.4 H, RDW Coeff of Jaquan 13.5, Plt Count 207, MPV 9.7, Immature Gran % (Auto) 0.700, Neut % (Auto) 86.4 H, Lymph % (Auto) 5.1 L, [place] % (Auto) 7.7, Eos % (Auto) 0.0, Baso % (Auto) 0.1, Absolute Neuts (auto) 13.1 H, Absolute Lymphs (auto) 0.77 L, Nucleated RBC % 0 10/23/19 04:10: Sodium 144, Potassium 3.9, Chloride 108 H, Carbon Dioxide 28.0, Anion Gap 8, BUN 25 H, Creatinine 0.99, Estim Creat Clear Calc 71.60, Est GFR (MDRD) Af Amer 99, Est GFR (MDRD) Non-Af 82, BUN/Creatinine Ratio 25.4 H, Glucose 135 H, Calcium 8.6 Current Medications Acetaminophen (Tylenol Liquid) 650 mg GT Q4H PRN PRN PRN Reason: Pain or Fever Last Admin: 10/22/19 04:11 Dose: 650 mg Documented by: Albuterol Sulfate (Ventolin Aerosols) 2.5 mg INHALATION Q2H PRN PRN PRN Reason: SOB, WHEEZE Last Admin: 10/22/19 22:06 Dose: 2.5 mg Documented by: Carvedilol (Coreg) 3.125 mg PO BID [facility] Last Admin: 10/23/19 10:54 Dose: Not Given Documented by: Chlorhexidine Gluconate () 15 ml PO BID [facility] Last Admin: 10/23/19 10:55 Dose: Not Given Documented by: Dexamethasone Sodium Phosphate (Decadron) 4 mg IV Q8 [facility] Last Admin: 10/23/19 04:56 Dose: 4 mg Documented by: Diphenhydramine HCl (Benadryl) 25 mg IV Q6 [facility] Last Admin: 10/23/19 04:55 Dose: 25 mg Documented by: Heparin Sodium (Porcine) (Heparin Na) 5,000 unit SC Q8 [facility] Last Admin: 10/23/19 04:56 Dose: 5,000 unit Documented by: Fentanyl () 100 mls @ 5 mls/hr IV UD [facility]; Protocol Last Titration: 10/23/19 07:02 Dose: 0 mcg/hr, 0 mls/hr Documented by: Sodium Chloride () 1,000 mls @ 0 mls/hr IV .Q0M [facility] Famotidine 20 mg/ Sodium (Chloride) 10 mls @ 300 mls/hr IV Q12 [facility] Last Infusion: 10/23/19 10:59 Dose: Infused Documented by: Enteral Nutritional Formula (Vital Af 1.2 Ramsey Liquid) 1,000 mls @ 75 mls/hr GT .[id number] [facility] Last Admin: 10/22/19 22:56 Dose: Not Given Documented by: Labetalol HCl (Trandate) 10 mg IV Q4H PRN PRN PRN Reason: SBP>160 Last Admin: 10/23/19 04:14 Dose: 10 mg Documented by: Ondansetron HCl (Zofran) 4 mg IV Q6H PRN PRN PRN Reason: Nausea Sodium Chloride () 10 - 40 ml IV UD PRN PRN Reason: SALINE FLUSH Last Admin: 10/23/19 10:55 Dose: 10 ml Documented by: Medical Necessity - Tobacco Use Smoking Status: Former smoker Tobacco Use: Pipe Assessment/Plan All Active Problems (Last Reviewed 10/20/19 @ 17:07 by Le Burgos DO) Angioedema (Acute) Nonischemic cardiomyopathy (Resolved) 59 yo M 3 days s/p emergent trach for angioedema -repeat laryngoscopy shows interval improvement -will change to 6 cuffless tomorrow am and re-scope. will likely cap after that and decannulate if tolerates.
--- NOTE | 2019-10-23 11:41 | PCM.OPRPT ---
Problem List (1) Angioedema Status: Acute Qualifiers: Encounter type: subsequent encounter Qualified Code(s): T78.3XXD - Angioneurotic edema, subsequent encounter Report of Operation Date of Procedure: 10/23/19 Pre-Operative Diagnosis: angioedema Post-Operative Diagnosis: angioedema Surgery/Procedure Performed:: fiberoptic flexible laryngoscopy Type of Anesthesia:: Local Description of Procedure: the nose was decongested with oxymetazoline. the flexible scope was placed into the left nasal cavity. the nasopharynx, pharynx and epiglottis were all normal. the cords were crisp and mobile with decreased erythema. the hypopharyngeal and posterior arytenoid edema has improved. visualized sublottis normal.
--- NOTE | 2019-10-23 21:51 | NURSING ---
Unable to document cpot on JAN due to fentanyl gtt not currently hanging.
[2019-10-24] VITALS (20 sets, daily range): BP systolic 104–197; BP diastolic 78–117; PULSE 58–70; RESP 15–26; TEMP 36.4–37.3; O2SAT 90–100
[2019-10-24] MEDS: 0.9% Saline Lock 10 ML Syringe IV ×2 (03:58→18:35)
[2019-10-24] MEDS: Labetalol 20 MG/4 ML Vial 10 MG IV ×2 (04:23→18:34)
[2019-10-24 04:35] LABS: Absolute Lymphocyte Count 0.83 X10^3/uL (0.83-4.51); Absolute Neutrophil Count 10.8 X10^3/uL (2.0-7.7); Basophil# 0.02 X10^3/uL; Basophil% 0.2 % (0-1); Hematocrit 39.9 % (40-54); Hemoglobin 13.4 g/dL (13.0-16.5); Lymphocyte # 0.83 X10^3/ul (4.0); Lymphocyte % 6.6 % (19-41); Mean Corp Hgb Conc 33.6 g/dL (32-36); Mean Corpuscular Hgb 32.4 pg (27.0-32.0); Mean Corpuscular Volume 96.6 fL (80-94); Mean Platelet Vol. 9.5 fl (6.2-12.0); Monocyte% 7.1 % (0-10); NRBC Flagged by Analyzer 0 % (0-5); Neutrophil # 10.78 X10^3/uL (2.7-7.7); Platelet Count 203 K/mm3 (150-450); RBC Distribution Width CV 13.1 % (11.6-14.6); RBC Distribution Width SD 46.5 fl (35.1-43.9); Red Blood Count 4.13 M/mm3 (4.6-6.2); White Blood Count 12.7 K/mm3 (4.4-11.0)
[2019-10-24 04:56] LABS: Anion Gap 7 (5-15); BUN 26 mg/dL (7-18); BUN/Creat Ratio 29.5 RATIO (10-20); Calcium,Total 8.7 mg/dL (8.5-10.1); Chloride 107 mmol/L (98-107); Creatinine, Serum 0.88 mg/dL (0.70-1.30); EST Glomerular Filtration Rate 94 mL/min (>60); Est Glom Filt Rate - Afr Amer 113 mL/min (>60); Estimated Creatinine Clearance 80.56 ml/min; Glucose 127 mg/dL (74-106); Sodium Level 143 mmol/L (136-145)
[2019-10-24] MEDS: dexAMETHasone 4 MG/ML Vial IV (05:53)
[2019-10-24] MEDS: DiphenhydrAMINE 50 MG/ML Syringe 25 MG IV (05:53)
--- NOTE | 2019-10-24 06:15 | PN_ITS ---
Subjective: The patient was seen and examined at the bedside this morning. Events from the last 24 hours have been reviewed. The patient is currently afebrile, hemodynamically stable and maintaining appropriate oxygen saturations on a trach collar with an FiO2 of 28%. The patient has been difficult overnight, at times were removing his trach collar oxygen and refusing to use it. In addition, he has been refusing his PRN antihypertensive medications. Objective: The patient's most recent lab work, culture data and imaging studies have all been personally reviewed. General: Alert, Cooperative, No apparent distress HEENT: Atraumatic, PERRLA, Normocephalic Oral: No Gingival or Mucosal Lesions/ Ulcerations Neck: Supple, No Nodes, Trachea Midline, - - Tracheostomy site is C/D/I Lungs: No rhonchi, No wheeze, No rales Cardiovascular: Regular rate, Regular Rhythm, Normal S1, Normal S2 Abdomen: Bowel Sounds Present, Soft, Non Tender, Obese Extremities: No clubbing, No cyanosis, No edema Skin: No breakdown Musculoskeletal: No Tenderness to Palpation of Joints or Extremities Lymphatic: No Cervical, Supraclavicular, or Inguinal Adenopathy Neurological: Cranial nerves II-XII grossly intact, Neuro grossly intact Psych/Mental Status: Agitated, Restless Vital Signs Temp Pulse Resp BP Pulse Ox 99.1 F 63 15 175/104 H 100 10/24/19 00:00 10/24/19 05:00 10/24/19 05:00 10/24/19 05:00 10/24/19 05:00 Oxygen Flow Rate (L/min) 28 Oxygen Delivery Method Trach Collar Weight: 319 lb 10.724 oz Body Mass Index (BMI) 51.2 Intake and Output for Last 24 Hours 10/22/19 10/23/19 10/24/19 23:59 23:59 23:59 Intake Total 858.05 / 858.05 90 / 90 Output Total 875 / 875 650 / 650 Balance -16.95 / -16.95 -560 / -560 Labs (Last 48 Hours) 10/22/19 10/23/19 10/23/19 04:00 04:10 04:10 WBC 15.2 H RBC 4.10 L Hgb 13.2 Hct 39.8 L MCV 97.1 H MCH 32.2 H MCHC 33.2 RDW Std Deviation 48.4 H RDW Coeff of Jaquan 13.5 Plt Count 207 MPV 9.7 Immature Gran % (Auto) 0.700 Neut % (Auto) 86.4 H Lymph % (Auto) 5.1 L [place] % (Auto) 7.7 Eos % (Auto) 0.0 Baso % (Auto) 0.1 Absolute Neuts (auto) 13.1 H Absolute Lymphs (auto) 0.77 L Nucleated RBC % 0 Sodium 144 Potassium 3.9 Chloride 108 H Carbon Dioxide 28.0 Anion Gap 8 BUN 25 H Creatinine 0.99 Estim Creat Clear Calc 71.60 Est GFR (MDRD) Af Amer 99 Est GFR (MDRD) Non-Af 82 BUN/Creatinine Ratio 25.4 H Glucose 135 H Hemoglobin A1c 5.1 Calcium 8.6 10/24/19 10/24/19 04:20 04:20 WBC 12.7 H RBC 4.13 L Hgb 13.4 Hct 39.9 L MCV 96.6 H MCH 32.4 H MCHC 33.6 RDW Std Deviation 46.5 H RDW Coeff of Jaquan 13.1 Plt Count 203 MPV 9.5 Immature Gran % (Auto) 1.100 H Neut % (Auto) 85.0 H Lymph % (Auto) 6.6 L [place] % (Auto) 7.1 Eos % (Auto) 0.0 Baso % (Auto) 0.2 Absolute Neuts (auto) 10.8 H Absolute Lymphs (auto) 0.83 Nucleated RBC % 0 Sodium 143 Potassium 4.0 Chloride 107 Carbon Dioxide 29.0 Anion Gap 7 BUN 26 H Creatinine 0.88 Estim Creat Clear Calc 80.56 Est GFR (MDRD) Af Amer 113 Est GFR (MDRD) Non-Af 94 BUN/Creatinine Ratio 29.5 H Glucose 127 H Hemoglobin A1c Calcium 8.7 Clinical Impression(s) from Imaging Studies Chest X-Ray 10/20/19 16:00 IMPRESSION: Satisfactory position of the support lines and tubes. Patchy opacity in the left midlung which is likely infectious in etiology. Electronically Signed: Chester Ventura, at 16:31 EST Tel , Service support , KUB X-Ray 10/20/19 16:14 IMPRESSION: Enteric tube tip in the stomach. Dilated loops of small bowel in the midabdomen which may be due to ileus or obstruction. Electronically Signed: Chester Elizondolul, at 16:57 EST Tel , Service support , Abdomen X-Ray 10/21/19 05:55 IMPRESSION: The gas pattern is unremarkable. Electronically Signed: Rl Gabby, at 10:33 EST , Service support , Chest X-Ray 10/21/19 05:55 IMPRESSION: Mild residual increased markings at the lung bases suggestive of atelectasis. Improved aeration of the left mid lung infiltrate. Electronically Signed: Rl Gabby, at 11:01 EST , Service support , Medical Necessity - Tobacco Use Smoking Status: Former smoker Tobacco Use: Pipe Assessment/Plan All Active Problems (Last Reviewed 10/20/19 @ 17:07 by Le Burgos DO) Angioedema (Acute) Nonischemic cardiomyopathy (Resolved) RECOMMENDATIONS: 1. Plans for reevaluation by ENT this morning with potential downsizing/transition to cuffless trach. 2. Speech therapy reevaluation prior to dietary advancement. 3. Continue as needed labetalol. 4. Steroids and Benadryl can be discontinued from my perspective. IMPRESSIONS: 1. Acute combined respiratory failure secondary to upper airway compromise in the setting of angioedema, now POD #3 s/p emergent tracheostomy Attempts to place a secure airway x3 were unsuccessful in the emergency department. The patient was subsequently transferred to the OR to undergo emergent surgical airway placement. The patient was able to be transitioned from a spontaneous mode of mechanical ventilation over to trach collar supplemental O2, which will be weaned to maintain an oxygen saturation at or above 90%. ENT is following to assist with decannulation efforts. IV steroids and Benadryl will be discontinued. Recommend reevaluation by speech therapy prior to any dietary advancement. 2. Obesity/hypertension/nonischemic cardiomyopathy/IBS/GERD/BPH/neuropathy Complicates care, management, recovery and prognosis. Okay to continue home medications from my perspective. This note was generated with [employer] software. It may contain incorrect words, spelling, and punctuation that were not noted in checking the note before signing. Code Visit Inpatient E&M: 33425 Subs Hosp L3
--- NOTE | 2019-10-24 07:09 | PCM.PN.HOSP ---
Patient Problems: Active and Suspected Problems (Last Reviewed 10/20/19 @ 17:07 by Le Burgos DO) Angioedema (Acute) Subjective: Follow-up on acute hypoxic/hypercapnic respiratory failure/angioedema: Patient was seen and examined. He feels frustrated about tracheostomy. Wants to go home. He underwent repeat flexible laryngoscope by ENT. His airway edema appeared to be improved. Tracheal capping is planned for tonight. Objective: Physical exam: General: Alert, Oriented x3, Cooperative, No apparent distress, - - morbidly obese, comfortable on room air HEENT: Atraumatic, PERRLA, EOMI, Normocephalic, - - s/p tracheostomy, Oral: Moist Mucosa Neck: Supple Lungs: Clear to auscultation - anteriorly, Normal air movement Cardiovascular: Regular rate, Regular Rhythm, Normal S1, Normal S2, No murmurs Abdomen: Bowel Sounds Present, Soft, Non Tender, Non-Distended, No Hepato-splenomegaly Extremities: Edema - Trace bilateral edema Skin: No rashes, No breakdown Musculoskeletal: No Tenderness to Palpation of Joints or Extremities Lymphatic: No Cervical, Supraclavicular, or Inguinal Adenopathy Neurological: Cranial nerves II-XII grossly intact, Neuro grossly intact Psych/Mental Status: Normal Affect, Appropriate Vitals/I&O's: Vital Signs Temp Pulse Resp BP Pulse Ox 99.1 F 60 19 H 168/93 H 90 10/24/19 00:00 10/24/19 06:00 10/24/19 06:00 10/24/19 06:00 10/24/19 06:00 Oxygen Flow Rate (L/min) 28 Oxygen Delivery Method Room Air Weight: 145 kg Body Mass Index (BMI) 51.2 Intake and Output for Last 24 Hours 10/22/19 10/23/19 10/24/19 23:59 23:59 23:59 Intake Total 858.05 / 858.05 90 / 90 Output Total 875 / 875 650 / 650 Balance -16.95 / -16.95 -560 / -560 Laboratory Results 10/24/19 04:20: WBC 12.7 H, RBC 4.13 L, Hgb 13.4, Hct 39.9 L, MCV 96.6 H, MCH 32.4 H, MCHC 33.6, RDW Std Deviation 46.5 H, RDW Coeff of Jaquan 13.1, Plt Count 203, MPV 9.5, Immature Gran % (Auto) 1.100 H, Neut % (Auto) 85.0 H, Lymph % (Auto) 6.6 L, [place] % (Auto) 7.1, Eos % (Auto) 0.0, Baso % (Auto) 0.2, Absolute Neuts (auto) 10.8 H, Absolute Lymphs (auto) 0.83, Nucleated RBC % 0 10/24/19 04:20: Sodium 143, Potassium 4.0, Chloride 107, Carbon Dioxide 29.0, Anion Gap 7, BUN 26 H, Creatinine 0.88, Estim Creat Clear Calc 80.56, Est GFR (MDRD) Af Amer 113, Est GFR (MDRD) Non-Af 94, BUN/Creatinine Ratio 29.5 H, Glucose 127 H, Calcium 8.7 Current Medications Acetaminophen (Tylenol Liquid) 650 mg GT Q4H PRN PRN PRN Reason: Pain or Fever Last Admin: 10/22/19 04:11 Dose: 650 mg Documented by: Albuterol Sulfate (Ventolin Aerosols) 2.5 mg INHALATION Q2H PRN PRN PRN Reason: SOB, WHEEZE Last Admin: 10/22/19 22:06 Dose: 2.5 mg Documented by: Carvedilol (Coreg) 3.125 mg PO BID [facility] Last Admin: 10/23/19 21:19 Dose: Not Given Documented by: Chlorhexidine Gluconate () 15 ml PO BID [facility] Last Admin: 10/23/19 21:37 Dose: Not Given Documented by: Heparin Sodium (Porcine) (Heparin Na) 5,000 unit SC Q8 [facility] Last Admin: 10/24/19 05:59 Dose: Not Given Documented by: Fentanyl () 100 mls @ 5 mls/hr IV UD [facility]; Protocol Last Titration: 10/23/19 16:28 Dose: Infused Documented by: Sodium Chloride () 1,000 mls @ 0 mls/hr IV .Q0M [facility] Famotidine 20 mg/ Sodium (Chloride) 10 mls @ 300 mls/hr IV Q12 [facility] Last Infusion: 10/23/19 21:36 Dose: Infused Documented by: Enteral Nutritional Formula (Vital Af 1.2 Ramsey Liquid) 1,000 mls @ 75 mls/hr GT .[id number] Last Admin: 10/24/19 05:53 Dose: Not Given Documented by: Labetalol HCl (Trandate) 10 mg IV Q4H PRN PRN PRN Reason: SBP>160 Last Admin: 10/24/19 04:23 Dose: 10 mg Documented by: Ondansetron HCl (Zofran) 4 mg IV Q6H PRN PRN PRN Reason: Nausea Sodium Chloride () 10 - 40 ml IV UD PRN PRN Reason: SALINE FLUSH Last Admin: 10/24/19 03:58 Dose: 10 ml Documented by: STROKE Vital Signs/Narrative: Vital Signs Pulse Resp BP Pulse Ox 10/24/19 06:00 60 19 H 168/93 H 90 10/24/19 05:00 63 15 175/104 H 100 10/24/19 04:00 70 21 H 170/92 H 90 10/24/19 03:32 69 23 H 171/92 H Medical Necessity - Tobacco Use Smoking Status: Former smoker Tobacco Use: Pipe Assessment/Plan All Active Problems (Last Reviewed 10/20/19 @ 17:07 by Le Burgos DO) Angioedema (Acute) Nonischemic cardiomyopathy (Resolved) 1. Acute hypoxemic/hypercapnic respiratory failure 2/2 angioedema s/p Emergent Tracheostomy off oxygen(tracheostomy cap), saturating well ENT recommends tracheal capping tonight. We will continue to monitor on continuous pulse ox 2. Angioedema 2/2 unknown cause, off lisinopril No oropharyngeal edema seen, continues to be on Benadryl and Methasone We will continue to monitor 3. S/p cardiopulmonary arrest, likely secondary to acute hypoxic/hypercapnic respiratory failure We will continue to monitor 4. Hypertension, controlled, resumed on carvedilol Will continue to monitor 4. GERD on famotidine 5. BPH, post Arias catheter, will resume Flomax 6. Morbid obesity, lifestyle modification will be stressed at discharge 7. Neuropathy, gabapentin on hold, will resume tomorrow. 8. DVT PPx- heparin SC Code Visit Inpatient E&M: 69313 Subs Hosp L2
--- NOTE | 2019-10-24 11:16 | PN_ITS ---
Patient Problems: Active and Suspected Problems (Last Reviewed 10/20/19 @ 17:07 by Le Burgos DO) Angioedema (Acute) Subjective: no events overnight - Physical Exam Vitals/I&O's: Vital Signs Temp Pulse Resp BP Pulse Ox 97.8 F 67 20 H 145/89 H 94 10/24/19 10:00 10/24/19 10:00 10/24/19 10:00 10/24/19 10:00 10/24/19 10:00 Oxygen Flow Rate (L/min) 28 Oxygen Delivery Method Room Air Weight: 145 kg Body Mass Index (BMI) 51.2 Intake and Output for Last 24 Hours 10/22/19 10/23/19 10/24/19 23:59 23:59 23:59 Intake Total 858.05 / 858.05 90 / 90 Output Total 875 / 875 650 / 650 Balance -16.95 / -16.95 -560 / -560 General: Alert, Oriented x3, Cooperative HEENT: Atraumatic, PERRLA, EOMI, Normocephalic Oral: Moist Mucosa Neck: No Nodes, - - #6DCT in place Laboratory Results 10/24/19 04:20: WBC 12.7 H, RBC 4.13 L, Hgb 13.4, Hct 39.9 L, MCV 96.6 H, MCH 32.4 H, MCHC 33.6, RDW Std Deviation 46.5 H, RDW Coeff of Jaquan 13.1, Plt Count 203, MPV 9.5, Immature Gran % (Auto) 1.100 H, Neut % (Auto) 85.0 H, Lymph % (Auto) 6.6 L, [place] % (Auto) 7.1, Eos % (Auto) 0.0, Baso % (Auto) 0.2, Absolute Neuts (auto) 10.8 H, Absolute Lymphs (auto) 0.83, Nucleated RBC % 0 10/24/19 04:20: Sodium 143, Potassium 4.0, Chloride 107, Carbon Dioxide 29.0, Anion Gap 7, BUN 26 H, Creatinine 0.88, Estim Creat Clear Calc 80.56, Est GFR (MDRD) Af Amer 113, Est GFR (MDRD) Non-Af 94, BUN/Creatinine Ratio 29.5 H, Glucose 127 H, Calcium 8.7 Current Medications Acetaminophen (Tylenol Liquid) 650 mg GT Q4H PRN PRN PRN Reason: Pain or Fever Last Admin: 10/22/19 04:11 Dose: 650 mg Documented by: Albuterol Sulfate (Ventolin Aerosols) 2.5 mg INHALATION Q2H PRN PRN PRN Reason: SOB, WHEEZE Last Admin: 10/22/19 22:06 Dose: 2.5 mg Documented by: Carvedilol (Coreg) 3.125 mg PO BID [facility] Last Admin: 10/23/19 21:19 Dose: Not Given Documented by: Chlorhexidine Gluconate () 15 ml PO BID [facility] Last Admin: 10/24/19 10:37 Dose: Not Given Documented by: Heparin Sodium (Porcine) (Heparin Na) 5,000 unit SC Q8 [facility] Last Admin: 10/24/19 05:59 Dose: Not Given Documented by: Fentanyl () 100 mls @ 5 mls/hr IV UD [facility]; Protocol Last Titration: 10/23/19 16:28 Dose: Infused Documented by: Sodium Chloride () 1,000 mls @ 0 mls/hr IV .Q0M [facility] Famotidine 20 mg/ Sodium (Chloride) 10 mls @ 300 mls/hr IV Q12 [facility] Last Infusion: 10/23/19 21:36 Dose: Infused Documented by: Enteral Nutritional Formula (Vital Af 1.2 Ramsey Liquid) 1,000 mls @ 75 mls/hr GT .[id number] [facility] Last Admin: 10/24/19 05:53 Dose: Not Given Documented by: Sodium Chloride () 1,000 mls @ 100 mls/hr IV .Q10H [facility] Stop: 10/24/19 18:14 Labetalol HCl (Trandate) 10 mg IV Q4H PRN PRN PRN Reason: SBP>160 Last Admin: 10/24/19 04:23 Dose: 10 mg Documented by: Ondansetron HCl (Zofran) 4 mg IV Q6H PRN PRN PRN Reason: Nausea Sodium Chloride () 10 - 40 ml IV UD PRN PRN Reason: SALINE FLUSH Last Admin: 10/24/19 03:58 Dose: 10 ml Documented by: Medical Necessity - Tobacco Use Smoking Status: Former smoker Tobacco Use: Pipe Assessment/Plan All Active Problems (Last Reviewed 10/20/19 @ 17:07 by Le Burgos DO) Angioedema (Acute) Nonischemic cardiomyopathy (Resolved) 59 year old male s/p emergent tracheostomy for angioedema -laryngeal edema continues to decrease, airway clear today on flexible laryngoscopy with some moderate non-occlusive arytenoid edema -trach switched to cuffless 6, good air flow and saturation 10 minutes after trach change -plan for capping trial tonight, decannulation tomorrow if all goes well
--- NOTE | 2019-10-24 11:20 | PCM.OPRPT ---
Problem List (1) Angioedema Status: Acute Qualifiers: Encounter type: subsequent encounter Qualified Code(s): T78.3XXD - Angioneurotic edema, subsequent encounter Report of Operation Date of Procedure: 10/24/19 Pre-Operative Diagnosis: angioedema Post-Operative Diagnosis: angioedema Surgery/Procedure Performed:: flexible laryngoscopy Description of Procedure: the nose was decongested with oxymetazoline. the flexible scope was placed into the left nasal cavity. the nasopharynx, pharynx and epiglottis were all normal. the cords were crisp and mobile with decreased erythema. the hypopharyngeal and posterior arytenoid edema has improved. visualized subglottis normal.
[2019-10-24] MEDS: Carvedilol 3.125 MG TABLET PO ×2 (13:33→22:10)
[2019-10-24] MEDS: Famotidine 200 MG/20 ML MDV 20 MG in 0.9% Normal Saline (Pres. free 8 ML 300 MG IV (13:33)
[2019-10-24] MEDS: Heparin Injection (Vial) 5,000 UNIT/ML VIAL 5000 UNIT SC ×2 (13:34→22:10)
[2019-10-24] MEDS: 0.9% Normal Saline 1,000 ML 100 ML IV (13:34)
[2019-10-24] MEDS: Famotidine 20 MG Tablet PO (19:06)
[2019-10-24] MEDS: Acetaminophen 325 MG Tablet 650 MG PO (22:34)
[2019-10-25] VITALS (14 sets, daily range): BP systolic 147–187; BP diastolic 86–103; PULSE 63–87; RESP 16–20; TEMP 36.2–36.9; O2SAT 92–98
[2019-10-25] MEDS: 0.9% Saline Lock 10 ML Syringe IV ×3 (04:08→15:49)
[2019-10-25] MEDS: Acetaminophen 325 MG Tablet 650 MG PO ×2 (04:08→09:52)
[2019-10-25] MEDS: Labetalol 20 MG/4 ML Vial 10 MG IV ×3 (04:09→15:49)
--- NOTE | 2019-10-25 04:34 | NURSING ---
PATIENT APPEARS TO BE TOLERATING CAPPED TRACH, DENIES ANY SOB OR THROAT SWELLING. LUNGS DIMINISHED. OXYGEN WITHIN NORMAL LIMITS.
[2019-10-25] MEDS: Heparin Injection (Vial) 5,000 UNIT/ML VIAL 5000 UNIT SC ×2 (05:32→21:11)
[2019-10-25 06:30] LABS: Absolute Lymphocyte Count 1.99 X10^3/uL (0.83-4.51); Absolute Neutrophil Count 9.3 X10^3/uL (2.0-7.7); Basophil# 0.04 X10^3/uL; Basophil% 0.3 % (0-1); Eosinophil# 0.07 X10^3/uL; Eosinophils% 0.5 % (0-5); Hematocrit 39.8 % (40-54); Hemoglobin 13.5 g/dL (13.0-16.5); Lymphocyte # 1.99 X10^3/ul (4.0); Lymphocyte % 15.2 % (19-41); Mean Corp Hgb Conc 33.9 g/dL (32-36); Mean Corpuscular Hgb 32.5 pg (27.0-32.0); Mean Corpuscular Volume 95.9 fL (80-94); Mean Platelet Vol. 10.1 fl (6.2-12.0); Monocyte# 1.49 X10^3/uL; Monocyte% 11.4 % (0-10); NRBC Flagged by Analyzer 0 % (0-5); Neutrophil # 9.33 X10^3/uL (2.7-7.7); Neutrophil % 71.4 % (47-70); Platelet Count 194 K/mm3 (150-450); RBC Distribution Width CV 13.1 % (11.6-14.6); RBC Distribution Width SD 46.1 fl (35.1-43.9); Red Blood Count 4.15 M/mm3 (4.6-6.2); White Blood Count 13.1 K/mm3 (4.4-11.0)
[2019-10-25 06:54] LABS: Anion Gap 8 (5-15); BUN 24 mg/dL (7-18); BUN/Creat Ratio 26.3 RATIO (10-20); Calcium,Total 8.4 mg/dL (8.5-10.1); Chloride 103 mmol/L (98-107); Creatinine, Serum 0.91 mg/dL (0.70-1.30); EST Glomerular Filtration Rate 90 mL/min (>60); Est Glom Filt Rate - Afr Amer 109 mL/min (>60); Glucose 113 mg/dL (74-106); Potassium 3.3 mmol/L (3.5-5.1); Sodium Level 138 mmol/L (136-145)
--- NOTE | 2019-10-25 08:37 | PCM.PN.HOSP ---
Patient Problems: Active and Suspected Problems (Last Reviewed 10/20/19 @ 17:07 by Le Burgos DO) Angioedema (Acute) Subjective: Follow-up on acute hypoxic/hypercapnic respiratory failure/angioedema: Patient was seen and examined. Tolerated capping of his tracheostomy last night with no desaturations. His tracheostomy was removed this morning by ENT. He denied any complaints. Objective: Physical exam: General: Alert, Oriented x3, Cooperative, No apparent distress, - - morbidly obese, comfortable on room air HEENT: Atraumatic, PERRLA, EOMI, Normocephalic,dressing over tracheostomy site Oral: Moist Mucosa Neck: Supple Lungs: Clear to auscultation - anteriorly, Normal air movement Cardiovascular: Regular rate, Regular Rhythm, Normal S1, Normal S2, No murmurs Abdomen: Bowel Sounds Present, Soft, Non Tender, Non-Distended, No Hepato-splenomegaly Extremities: Edema - Trace bilateral edema Skin: No rashes, No breakdown Musculoskeletal: No Tenderness to Palpation of Joints or Extremities Lymphatic: No Cervical, Supraclavicular, or Inguinal Adenopathy Neurological: Cranial nerves II-XII grossly intact, Neuro grossly intact Psych/Mental Status: Normal Affect, Appropriate Vitals/I&O's: Vital Signs Temp Pulse Resp BP Pulse Ox 97.1 F L 67 16 158/94 H 96 10/25/19 05:31 10/25/19 06:45 10/25/19 05:31 10/25/19 05:31 10/25/19 05:31 Oxygen Flow Rate (L/min) 28 Oxygen Delivery Method Room Air Weight: 146.5 kg Body Mass Index (BMI) 51.2 Intake and Output for Last 24 Hours 10/23/19 10/24/19 10/25/19 23:59 23:59 23:59 Intake Total 90 / 90 1065 / 1065 300 / 300 Output Total 650 / 650 Balance -560 / -560 1065 / 1065 300 / 300 Laboratory Results 10/25/19 05:25: WBC 13.1 H, RBC 4.15 L, Hgb 13.5, Hct 39.8 L, MCV 95.9 H, MCH 32.5 H, MCHC 33.9, RDW Std Deviation 46.1 H, RDW Coeff of Jaquan 13.1, Plt Count 194, MPV 10.1, Immature Gran % (Auto) 1.200 H, Neut % (Auto) 71.4 H, Lymph % (Auto) 15.2 L, [place] % (Auto) 11.4 H, Eos % (Auto) 0.5, Baso % (Auto) 0.3, Absolute Neuts (auto) 9.3 H, Absolute Lymphs (auto) 1.99, Nucleated RBC % 0 10/25/19 05:25: Sodium 138, Potassium 3.3 L, Chloride 103, Carbon Dioxide 27.0, Anion Gap 8, BUN 24 H, Creatinine 0.91, Estim Creat Clear Calc 77.90, Est GFR (MDRD) Af Amer 109, Est GFR (MDRD) Non-Af 90, BUN/Creatinine Ratio 26.3 H, Glucose 113 H, Calcium 8.4 L Current Medications Acetaminophen (Tylenol) 650 mg PO Q4H PRN PRN PRN Reason: Pain or Fever Last Admin: 10/25/19 04:08 Dose: 650 mg Documented by: Albuterol Sulfate (Ventolin Aerosols) 2.5 mg INHALATION Q2H PRN PRN PRN Reason: SOB, WHEEZE Last Admin: 10/22/19 22:06 Dose: 2.5 mg Documented by: Carvedilol (Coreg) 3.125 mg PO BID [facility] Last Admin: 10/24/19 22:10 Dose: 3.125 mg Documented by: Citalopram Hydrobromide (Celexa) 20 mg PO DAILY [facility] Famotidine (Pepcid) 20 mg PO BIDLX [facility] Last Admin: 10/24/19 19:06 Dose: 20 mg Documented by: Heparin Sodium (Porcine) (Heparin Na) 5,000 unit SC Q8 [facility] Last Admin: 10/25/19 05:32 Dose: 5,000 unit Documented by: Sodium Chloride () 1,000 mls @ 0 mls/hr IV .Q0M [facility] Labetalol HCl (Trandate) 10 mg IV Q4H PRN PRN PRN Reason: SBP>160 Last Admin: 10/25/19 04:09 Dose: 10 mg Documented by: Ondansetron HCl (Zofran) 4 mg IV Q6H PRN PRN PRN Reason: Nausea Sodium Chloride () 10 - 40 ml IV UD PRN PRN Reason: SALINE FLUSH Last Admin: 10/25/19 04:08 Dose: 10 ml Documented by: Tamsulosin HCl (Flomax) 0.4 mg PO DAILY [facility] Vital Signs/Narrative: Vital Signs Temp Pulse Resp BP Pulse Ox 10/25/19 06:45 67 10/25/19 05:31 97.1 F L 64 16 158/94 H 96 Medical Necessity - Tobacco Use Smoking Status: Former smoker Tobacco Use: Pipe Assessment/Plan All Active Problems (Last Reviewed 10/20/19 @ 17:07 by Le Burgos DO) Angioedema (Acute) Nonischemic cardiomyopathy (Resolved) 1. Acute hypoxemic/hypercapnic respiratory failure 2/2 angioedema s/p Emergent Tracheostomy s/p removal of tracheostomy, saturating well We will continue to monitor overnight on continuous pulse ox 2. Angioedema 2/2 unknown cause, off lisinopril, improved 3. S/p cardiopulmonary arrest, likely secondary to acute hypoxic/hypercapnic respiratory failure 4. Hypertension, controlled, resumed on carvedilol Will continue to monitor 4. GERD on famotidine 5. BPH, post Arias catheter, on Flomax 6. Morbid obesity, lifestyle modification will be stressed at discharge 7. Neuropathy, gabapentin on hold, will resume tomorrow. 8. DVT PPx- heparin SC Code Visit Inpatient E&M: 53845 Subs Hosp L2
[2019-10-25] MEDS: Albuterol 2.5 MG/3 ML VIAL.NEB. INHALATION (09:14)
--- NOTE | 2019-10-25 09:26 | PCM.PROGNOTE ---
Patient Problems: Active and Suspected Problems (Last Reviewed 10/20/19 @ 17:07 by Le Burgos DO) Angioedema (Acute) Subjective: no events overnight - Physical Exam Vitals/I&O's: Vital Signs Temp Pulse Resp BP Pulse Ox 97.1 F L 79 20 H 158/94 H 97 10/25/19 05:31 10/25/19 09:15 10/25/19 09:15 10/25/19 05:31 10/25/19 09:15 Oxygen Flow Rate (L/min) 28 Oxygen Delivery Method Room Air Weight: 146.5 kg Body Mass Index (BMI) 51.2 Intake and Output for Last 24 Hours 10/23/19 10/24/19 10/25/19 23:59 23:59 23:59 Intake Total 90 / 90 1065 / 1065 300 / 300 Output Total 650 / 650 Balance -560 / -560 1065 / 1065 300 / 300 General: Alert, Oriented x3, Cooperative HEENT: Atraumatic, PERRLA, EOMI, Normocephalic Oral: - - voice normal. no stridor. Laboratory Results 10/25/19 05:25: WBC 13.1 H, RBC 4.15 L, Hgb 13.5, Hct 39.8 L, MCV 95.9 H, MCH 32.5 H, MCHC 33.9, RDW Std Deviation 46.1 H, RDW Coeff of Jaquan 13.1, Plt Count 194, MPV 10.1, Immature Gran % (Auto) 1.200 H, Neut % (Auto) 71.4 H, Lymph % (Auto) 15.2 L, [place] % (Auto) 11.4 H, Eos % (Auto) 0.5, Baso % (Auto) 0.3, Absolute Neuts (auto) 9.3 H, Absolute Lymphs (auto) 1.99, Nucleated RBC % 0 10/25/19 05:25: Sodium 138, Potassium 3.3 L, Chloride 103, Carbon Dioxide 27.0, Anion Gap 8, BUN 24 H, Creatinine 0.91, Estim Creat Clear Calc 77.90, Est GFR (MDRD) Af Amer 109, Est GFR (MDRD) Non-Af 90, BUN/Creatinine Ratio 26.3 H, Glucose 113 H, Calcium 8.4 L Current Medications Acetaminophen (Tylenol) 650 mg PO Q4H PRN PRN PRN Reason: Pain or Fever Last Admin: 10/25/19 04:08 Dose: 650 mg Documented by: Albuterol Sulfate (Ventolin Aerosols) 2.5 mg INHALATION Q2H PRN PRN PRN Reason: SOB, WHEEZE Last Admin: 10/25/19 09:14 Dose: 2.5 mg Documented by: Carvedilol (Coreg) 3.125 mg PO BID [facility] Last Admin: 10/24/19 22:10 Dose: 3.125 mg Documented by: Citalopram Hydrobromide (Celexa) 20 mg PO DAILY [facility] Famotidine (Pepcid) 20 mg PO BIDLX [facility] Last Admin: 10/24/19 19:06 Dose: 20 mg Documented by: Heparin Sodium (Porcine) (Heparin Na) 5,000 unit SC Q8 [facility] Last Admin: 10/25/19 05:32 Dose: 5,000 unit Documented by: Sodium Chloride () 1,000 mls @ 0 mls/hr IV .Q0M [facility] Labetalol HCl (Trandate) 10 mg IV Q4H PRN PRN PRN Reason: SBP>160 Last Admin: 10/25/19 04:09 Dose: 10 mg Documented by: Ondansetron HCl (Zofran) 4 mg IV Q6H PRN PRN PRN Reason: Nausea Sodium Chloride () 10 - 40 ml IV UD PRN PRN Reason: SALINE FLUSH Last Admin: 10/25/19 04:08 Dose: 10 ml Documented by: Tamsulosin HCl (Flomax) 0.4 mg PO DAILY [facility] Medical Necessity - Tobacco Use Smoking Status: Former smoker Tobacco Use: Pipe Assessment/Plan All Active Problems (Last Reviewed 10/20/19 @ 17:07 by Le Burgos DO) Angioedema (Acute) Nonischemic cardiomyopathy (Resolved) 59 year old male s/p emergent trach for angioedema -trach removed today. no airway abnormalities with complete occlusion. tolerated capping overnight with no issues. -BID dressing changes: adaptik or xeroform folded with 4 x 4 on top, occlusive tape. he knows to push on his dressing for occlusive purposes when talking and coughing -will scope tomorrow. okay to d/c saturday from ENT perspective if no issues. continuous pulse ox until then.
--- NOTE | 2019-10-25 09:52 | PCM.PN.PUL ---
Patient Problems: Active and Suspected Problems (Last Reviewed 10/20/19 @ 17:07 by Le Burgos DO) Angioedema (Acute) Subjective: The patient was seen and examined at the bedside this morning. Events from the last 24 hours have been reviewed. The patient is currently afebrile, hemodynamically stable and maintaining appropriate oxygen saturations on room air. The patient's trach was downsized yesterday and transition to a cuffless trach. The patient was then capped and has tolerated without issue overnight. The patient's diet was then advanced as well. Objective: The patient's most recent lab work, culture data and imaging studies have all been personally reviewed. - Physical Exam Vitals/I&O's: Vital Signs Temp Pulse Resp BP Pulse Ox 97.7 F L 82 16 166/93 H 96 10/25/19 09:46 10/25/19 09:46 10/25/19 09:46 10/25/19 09:46 10/25/19 09:46 Oxygen Flow Rate (L/min) 28 Oxygen Delivery Method Room Air Weight: 322 lb 15.635 oz Body Mass Index (BMI) 51.2 Intake and Output for Last 24 Hours 10/23/19 10/24/19 10/25/19 23:59 23:59 23:59 Intake Total 90 / 90 1065 / 1065 300 / 300 Output Total 650 / 650 Balance -560 / -560 1065 / 1065 300 / 300 General: Alert, Cooperative, No apparent distress, - - Sitting in bedside recliner. HEENT: Atraumatic, PERRLA, Normocephalic Oral: No Gingival or Mucosal Lesions/ Ulcerations Neck: Supple, No Nodes, Trachea Midline, - - Cuffless trach in place with Passy-Enedina valve Lungs: No rhonchi, No wheeze, No rales, Diminished Cardiovascular: Regular rate, Regular Rhythm, Normal S1, Normal S2, No murmurs Abdomen: Bowel Sounds Present, Soft, Non Tender, Obese Extremities: No clubbing, No cyanosis, No edema Skin: No breakdown Musculoskeletal: No Tenderness to Palpation of Joints or Extremities, No Muscle Wasting Lymphatic: No Cervical, Supraclavicular, or Inguinal Adenopathy Neurological: Cranial nerves II-XII grossly intact, Neuro grossly intact Psych/Mental Status: Alert and oriented to time, place, person, mood and affect Laboratory Results 10/25/19 05:25: WBC 13.1 H, RBC 4.15 L, Hgb 13.5, Hct 39.8 L, MCV 95.9 H, MCH 32.5 H, MCHC 33.9, RDW Std Deviation 46.1 H, RDW Coeff of Jaquan 13.1, Plt Count 194, MPV 10.1, Immature Gran % (Auto) 1.200 H, Neut % (Auto) 71.4 H, Lymph % (Auto) 15.2 L, [place] % (Auto) 11.4 H, Eos % (Auto) 0.5, Baso % (Auto) 0.3, Absolute Neuts (auto) 9.3 H, Absolute Lymphs (auto) 1.99, Nucleated RBC % 0 10/25/19 05:25: Sodium 138, Potassium 3.3 L, Chloride 103, Carbon Dioxide 27.0, Anion Gap 8, BUN 24 H, Creatinine 0.91, Estim Creat Clear Calc 77.90, Est GFR (MDRD) Af Amer 109, Est GFR (MDRD) Non-Af 90, BUN/Creatinine Ratio 26.3 H, Glucose 113 H, Calcium 8.4 L Current Medications Acetaminophen (Tylenol) 650 mg PO Q4H PRN PRN PRN Reason: Pain or Fever Last Admin: 10/25/19 04:08 Dose: 650 mg Documented by: Albuterol Sulfate (Ventolin Aerosols) 2.5 mg INHALATION Q2H PRN PRN PRN Reason: SOB, WHEEZE Last Admin: 10/25/19 09:14 Dose: 2.5 mg Documented by: Carvedilol (Coreg) 3.125 mg PO BID [facility] Last Admin: 10/24/19 22:10 Dose: 3.125 mg Documented by: Citalopram Hydrobromide (Celexa) 20 mg PO DAILY [facility] Famotidine (Pepcid) 20 mg PO BIDLX [facility] Last Admin: 10/24/19 19:06 Dose: 20 mg Documented by: Heparin Sodium (Porcine) (Heparin Na) 5,000 unit SC Q8 [facility] Last Admin: 10/25/19 05:32 Dose: 5,000 unit Documented by: Sodium Chloride () 1,000 mls @ 0 mls/hr IV .Q0M [facility] Labetalol HCl (Trandate) 10 mg IV Q4H PRN PRN PRN Reason: SBP>160 Last Admin: 10/25/19 04:09 Dose: 10 mg Documented by: Ondansetron HCl (Zofran) 4 mg IV Q6H PRN PRN PRN Reason: Nausea Sodium Chloride () 10 - 40 ml IV UD PRN PRN Reason: SALINE FLUSH Last Admin: 10/25/19 04:08 Dose: 10 ml Documented by: Tamsulosin HCl (Flomax) 0.4 mg PO DAILY [facility] Medical Necessity - Tobacco Use Smoking Status: Former smoker Tobacco Use: Pipe Assessment/Plan All Active Problems (Last Reviewed 10/20/19 @ 17:07 by Le Burgos DO) Angioedema (Acute) Nonischemic cardiomyopathy (Resolved) RECOMMENDATIONS: 1. Plans for reevaluation by ENT this morning. I do anticipate decannulation, possibly as early as today. 2. Restart home antihypertensive regimen. 3. Pepcid can be discontinued. 4. Given the patient's lack of further ICU needs, will sign off. Please call with any additional questions. IMPRESSIONS: 1. Acute combined respiratory failure secondary to upper airway compromise in the setting of angioedema, now POD #3 s/p emergent tracheostomy Attempts to place a secure airway x3 were unsuccessful in the emergency department. The patient was subsequently transferred to the OR to undergo emergent surgical airway placement. ENT has been following to assist with management of the patient's tracheostomy. He was downsized yesterday and capped. The patient has tolerated this without issue. I do anticipate that he will be decannulated today. 2. Obesity/hypertension/nonischemic cardiomyopathy/IBS/GERD/BPH/neuropathy Complicates care, management, recovery and prognosis. Okay to restart home antihypertensive regimen. This note was generated with [employer] dictation software. It may contain incorrect words, spelling, and punctuation that were not noted in checking the note before signing. Code Visit Inpatient E&M: 52105 Subs Hosp L2
[2019-10-25] MEDS: Famotidine 20 MG Tablet PO ×2 (09:53→17:47)
[2019-10-25] MEDS: Carvedilol 3.125 MG TABLET PO ×2 (09:53→21:10)
[2019-10-25] MEDS: Tamsulosin HCl 0.4 MG Capsule PO (09:53)
[2019-10-25] MEDS: Citalopram 20 MG Tablet PO (09:53)
--- NOTE | 2019-10-25 20:12 | NURSING ---
RN HAS EDUCATED PATIENT AND MULTIPLE TIMES ABOUT BEING ON HONEY THICK UNTIL MUSCLES ARE STRONGER POST TRACH. PATIENT VERBALIZES UNDERSTANDING, HOWEVER EVERY TIME RN COMES IN ROOM THIN LIQUIDS ARE ON THE TABLE. EDUCATED ABOUT ASPIRATING AND TOO MAKE SURE ONLY TAKING IN HONEY THICKENED LIQUIDS AT THIS TIME.
[2019-10-25] MEDS: MELATONIN 3 MG TABLET PO (22:31)
[2019-10-26] VITALS (7 sets, daily range): BP systolic 137–157; BP diastolic 80–88; PULSE 62–83; RESP 16–20; TEMP 36.9; O2SAT 82–97
--- NOTE | 2019-10-26 02:02 | NURSING ---
PATIENT OXYGEN LEVEL DOES DROP WHILE ASLEEP AROUND 82%, DOESN'T SUSTAIN THERE COMES BACK UP TO 92-93%. PATIENT DENIES ANY SOB, NO WHEEZES OR STRIDOR NOTED. CALLED RESP TO UPDATE. WILL CONTINUE TO MONITOR.
[2019-10-26] MEDS: Heparin Injection (Vial) 5,000 UNIT/ML VIAL 5000 UNIT SC (04:43)
[2019-10-26] MEDS: 0.9% Saline Lock 10 ML Syringe IV (04:45)
[2019-10-26] MEDS: Carvedilol 3.125 MG TABLET PO (09:27)
[2019-10-26] MEDS: Citalopram 20 MG Tablet PO (09:27)
[2019-10-26] MEDS: Tamsulosin HCl 0.4 MG Capsule PO (09:27)
[2019-10-26] MEDS: Famotidine 20 MG Tablet PO (09:27)
[2019-10-26 09:57] LABS: Anion Gap 7 (5-15); BUN 15 mg/dL (7-18); BUN/Creat Ratio 17.2 RATIO (10-20); Calcium,Total 8.7 mg/dL (8.5-10.1); Chloride 104 mmol/L (98-107); Creatinine, Serum 0.87 mg/dL (0.70-1.30); EST Glomerular Filtration Rate 95 mL/min (>60); Est Glom Filt Rate - Afr Amer 115 mL/min (>60); Estimated Creatinine Clearance 81.48 ml/min; Glucose 131 mg/dL (74-106); Potassium 3.6 mmol/L (3.5-5.1); Sodium Level 139 mmol/L (136-145)
--- NOTE | 2019-10-26 10:41 | DCINST_ITS ---
- Discharge Diagnoses Current Active Problems: Current Active and Chronic Problems (Last Reviewed 10/20/19 @ 17:07 by Le Burgos DO) Angioedema (Acute) Reason(s) for Visit for Discharge Instructions: Shortness of breath You will use the following diet at home:: Cardiac Your food should be the consistency of: Regular Your liquids should be the consistency of: Regular/Thin Discharge Activity: Return to Normal Activity Weight Bearing Status: Weight bearing as tolerated Allergies/Adverse Reactions: Allergies lisinopril Adverse Reaction (Verified 10/24/19 22:35) Angioedema Medications to take at Discharge Lansoprazole [Prevacid] 15 mg PO DAILY 05/05/14 diphenhydramine 25 mg capsule 25 mg PO QHS PRN 11/06/18 tamsulosin 0.4 mg capsule 0.4 mg PO DAILY 90 Days #90 cap 11/06/18 Citalopram [Celexa] 20 mg PO DAILY 10/20/19 Acetaminophen [Tylenol Tablet] 650 mg PO Q4H PRN PRN tab 10/26/19 Primary Care Physician: Rosa Acosta DO [Primary Care Provider] - Please follow up with your Primary Care Physician in: within 1-2 weeks Test Results: Test results from this visit will be discussed in further detail at your follow- up appointment, if applicable. Please Follow Up With: Juan Tee MD When: within 1-2 weeks Proposed Discharge Date: 10/26/19
--- NOTE | 2019-10-26 10:46 | PCM.DC.SUM ---
Discharge Date and Diagnosis Date of Admission: 10/20/19 Date of Discharge: 10/26/19 - Primary Discharge Diagnosis Active and Suspected Problems (Last Reviewed 10/20/19 @ 17:07 by Le Burgos DO) Angioedema (Acute) Acute hypoxic respiratory failure Status post cardiopulmonary arrest - Secondary Discharge Diagnosis Chronic Problems (Last Reviewed 10/20/19 @ 17:07 by Le Burgos DO) Hyperlipemia (Chronic) Palpitations (Chronic) Pulmonary hypertension (Chronic) Pure hypercholesterolemia (Chronic) Essential (primary) hypertension (Chronic) Restless leg syndrome (Chronic) Obesity (Chronic) Irritable bowel syndrome (Chronic) Hospital Course and Treatment Imaging Results: Clinical Impression(s) from Imaging Studies Chest X-Ray 10/20/19 16:00 IMPRESSION: Satisfactory position of the support lines and tubes. Patchy opacity in the left midlung which is likely infectious in etiology. Electronically Signed: Chester Ventura, at 16:31 EST Tel , Service support , KUB X-Ray 10/20/19 16:14 IMPRESSION: Enteric tube tip in the stomach. Dilated loops of small bowel in the midabdomen which may be due to ileus or obstruction. Electronically Signed: Chester Ventura, at 16:57 EST Tel , Service support , Abdomen X-Ray 10/21/19 05:55 IMPRESSION: The gas pattern is unremarkable. Electronically Signed: Rl Pierre, at 10:33 EST , Service support , Chest X-Ray 10/21/19 05:55 IMPRESSION: Mild residual increased markings at the lung bases suggestive of atelectasis. Improved aeration of the left mid lung infiltrate. Electronically Signed: Rl Pierre, at 11:01 EST , Service support , Critical care ENT Operations: - - emergent tracheostomy Summary of Care Provided: The patient is a 59 year old M with past medical history of obesity, hypertension, GERD who comes in to the emergency department with difficulty swallowing as well as breathing. Patient had undergone EGD by Dr. Bowman early in the morning around 8:00. He went home around 10 AM. He ate sausage sandwich and later on developed shortness of breath as well as changes in his voice. On arrival to the emergency department, patient was in respiratory distress. The airway team was called. Racemic epi was given. Patient underwent rapid sequence intubation x3. He was unable to be intubated. An LMA was placed and patient was taken emergently to the OR where an emergent tracheostomy was performed by ENT. Patient was said to have undergone a brief PEA arrest and CPR was given for a short time with return of spontaneous circulation once an airway was obtained. Patient was monitored subsequently in the ICU on mechanical ventilator. Critical care was consulted. His angioedema was believed to be secondary to his home lisinopril. Patient continued to improve and did well off sedation. He was seen daily by ENT and had daily flexible laryngoscopy. He was tracheostomy collar and had his tracheostomy capped after he was changed to cuffless trach after he had generally improved. He was decannulated on the day before discharge. He was monitored overnight and had one deep in his oxygen saturation to 82%. Unclear how long he remained low. Patient was seen the next day by ENT, underwent flexible laryngoscope with minimal edema of his airway. He was walked and he did not qualify for oxygen. Patient will follow up with ENT within a week. He was advised to avoid going on lisinopril his blood pressure was slightly uncontrolled and patient was discharged home on hydrochlorothiazide and some changes made to his medications. He was prescribed a blood pressure machine as well as he will follow-up with his primary doctor within 1 to 2 weeks Subjective: On the day of discharge, patient was seen and examined. Denied any new complaints. His blood pressure slightly elevated. Given hydrochlorothiazide in the hospital. Discharged on prescription for hydrochlorthiazide. He will follow-up with ENT within a week. He will also follow-up with his primary care doctor within 1 to 2 weeks. He was given a prescription for blood pressure machine. Objective: Physical exam: General: Alert, Oriented x3, Cooperative, No apparent distress, - - morbidly obese, comfortable on room air HEENT: Atraumatic, PERRLA, EOMI, Normocephalic,dressing over tracheostomy site Oral: Moist Mucosa Neck: Supple Lungs: Clear to auscultation - anteriorly, Normal air movement Cardiovascular: Regular rate, Regular Rhythm, Normal S1, Normal S2, No murmurs Abdomen: Bowel Sounds Present, Soft, Non Tender, Non-Distended, No Hepato-splenomegaly Extremities: Edema - Trace bilateral edema Skin: No rashes, No breakdown Musculoskeletal: No Tenderness to Palpation of Joints or Extremities Lymphatic: No Cervical, Supraclavicular, or Inguinal Adenopathy Neurological: Cranial nerves II-XII grossly intact, Neuro grossly intact Psych/Mental Status: Normal Affect, Appropriate - Physical Exam Vitals/I&O's: Vital Signs Temp Pulse Resp BP Pulse Ox 98.4 F 83 20 H 157/88 H 96 10/26/19 09:15 10/26/19 09:15 10/26/19 09:15 10/26/19 09:15 10/26/19 09:15 Oxygen Flow Rate (L/min) 2 Oxygen Delivery Method Room Air Weight: 145.1 kg Body Mass Index (BMI) 51.2 Intake and Output for Last 24 Hours 10/24/19 10/25/19 10/26/19 23:59 23:59 23:59 Intake Total 1065 / 1065 860 / 860 Output Total 200 / 200 Balance 1065 / 1065 660 / 660 Laboratory Results 10/26/19 09:30: Sodium 139, Potassium 3.6, Chloride 104, Carbon Dioxide 28.0, Anion Gap 7, BUN 15, Creatinine 0.87, Estim Creat Clear Calc 81.48, Est GFR (MDRD) Af Amer 115, Est GFR (MDRD) Non-Af 95, BUN/Creatinine Ratio 17.2, Glucose 131 H, Calcium 8.7 Current Medications Acetaminophen (Tylenol) 650 mg PO Q4H PRN PRN PRN Reason: Pain or Fever Last Admin: 10/25/19 09:52 Dose: 650 mg Documented by: Albuterol Sulfate (Ventolin Aerosols) 2.5 mg INHALATION Q2H PRN PRN PRN Reason: SOB, WHEEZE Last Admin: 10/25/19 09:14 Dose: 2.5 mg Documented by: Carvedilol (Coreg) 3.125 mg PO BID [facility] Last Admin: 10/26/19 09:27 Dose: 3.125 mg Documented by: Citalopram Hydrobromide (Celexa) 20 mg PO DAILY [facility] Last Admin: 10/26/19 09:27 Dose: 20 mg Documented by: Famotidine (Pepcid) 20 mg PO BIDLX [facility] Last Admin: 10/26/19 09:27 Dose: 20 mg Documented by: Heparin Sodium (Porcine) (Heparin Na) 5,000 unit SC Q8 [facility] Last Admin: 10/26/19 04:43 Dose: 5,000 unit Documented by: Sodium Chloride () 1,000 mls @ 0 mls/hr IV .Q0M [facility] Labetalol HCl (Trandate) 10 mg IV Q4H PRN PRN PRN Reason: SBP>160 Last Admin: 10/25/19 15:49 Dose: 10 mg Documented by: Melatonin (Melatonin) 3 mg PO QHS [facility] Last Admin: 10/25/19 22:31 Dose: 3 mg Documented by: Ondansetron HCl (Zofran) 4 mg IV Q6H PRN PRN PRN Reason: Nausea Sodium Chloride () 10 - 40 ml IV UD PRN PRN Reason: SALINE FLUSH Last Admin: 10/26/19 04:45 Dose: 10 ml Documented by: Tamsulosin HCl (Flomax) 0.4 mg PO DAILY [facility] Last Admin: 10/26/19 09:27 Dose: 0.4 mg Documented by: Discharge Diet: Low fat/ Low Cholesterol, 2000 mg Sodium Diet Discharge Activity: Return to Normal Activity Weight Bearing Status: Weight bearing as tolerated Home Medications: Medications to take at Discharge Lansoprazole [Prevacid] 15 mg PO DAILY 05/05/14 diphenhydramine 25 mg capsule 25 mg PO QHS PRN 11/06/18 tamsulosin 0.4 mg capsule 0.4 mg PO DAILY 90 Days #90 cap 11/06/18 Citalopram [Celexa] 20 mg PO DAILY 10/20/19 Acetaminophen [Tylenol Tablet] 650 mg PO Q4H PRN PRN tab 10/26/19 Hydrochlorothiazide [Hctz] 25 mg PO DAILY 30 Days #30 tab 10/26/19 Following Prescrptions Were Given to Patient: Hydrochlorothiazide [Hctz] 25 mg PO DAILY 30 Days #30 tab Transmission Status: Received by [id number] Primary Care Physician: Rosa Acosta DO [Primary Care Provider] - Please follow up with your Primary Care Physician in: within 1-2 weeks Please Follow Up With: Juan Tee MD When: within 1-2 weeks Disposition: Home Minutes spent on discharge:: 45 Patient Condition:: Stable Medical Necessity - Tobacco Use Smoking Status: Former smoker Tobacco Use: Pipe Meaningful Use Info Meaningful Use Diagnoses (Choose all that apply): None applicable Code Visit Inpatient E&M: 67371 Disch Hosp
--- NOTE | 2019-10-26 11:56 | PCM.PROGNOTE ---
Patient Problems: Active and Suspected Problems (Last Reviewed 10/20/19 @ 17:07 by Le Burgos DO) Angioedema (Acute) Subjective: no events overnight. - Physical Exam Vitals/I&O's: Vital Signs Temp Pulse Resp BP Pulse Ox 98.4 F 83 20 H 157/88 H 96 10/26/19 09:15 10/26/19 09:15 10/26/19 09:15 10/26/19 09:15 10/26/19 09:15 Oxygen Flow Rate (L/min) 2 Oxygen Delivery Method Room Air Weight: 145.1 kg Body Mass Index (BMI) 51.2 Intake and Output for Last 24 Hours 10/24/19 10/25/19 10/26/19 23:59 23:59 23:59 Intake Total 1065 / 1065 860 / 860 Output Total 200 / 200 Balance 1065 / 1065 660 / 660 General: Alert, Oriented x3, Cooperative Neck: - - dressing in place Laboratory Results 10/26/19 09:30: Sodium 139, Potassium 3.6, Chloride 104, Carbon Dioxide 28.0, Anion Gap 7, BUN 15, Creatinine 0.87, Estim Creat Clear Calc 81.48, Est GFR (MDRD) Af Amer 115, Est GFR (MDRD) Non-Af 95, BUN/Creatinine Ratio 17.2, Glucose 131 H, Calcium 8.7 Current Medications Acetaminophen (Tylenol) 650 mg PO Q4H PRN PRN PRN Reason: Pain or Fever Last Admin: 10/25/19 09:52 Dose: 650 mg Documented by: Albuterol Sulfate (Ventolin Aerosols) 2.5 mg INHALATION Q2H PRN PRN PRN Reason: SOB, WHEEZE Last Admin: 10/25/19 09:14 Dose: 2.5 mg Documented by: Carvedilol (Coreg) 3.125 mg PO BID [facility] Last Admin: 10/26/19 09:27 Dose: 3.125 mg Documented by: Citalopram Hydrobromide (Celexa) 20 mg PO DAILY [facility] Last Admin: 10/26/19 09:27 Dose: 20 mg Documented by: Famotidine (Pepcid) 20 mg PO BIDLX [facility] Last Admin: 10/26/19 09:27 Dose: 20 mg Documented by: Heparin Sodium (Porcine) (Heparin Na) 5,000 unit SC Q8 [facility] Last Admin: 10/26/19 04:43 Dose: 5,000 unit Documented by: Sodium Chloride () 1,000 mls @ 0 mls/hr IV .Q0M [facility] Labetalol HCl (Trandate) 10 mg IV Q4H PRN PRN PRN Reason: SBP>160 Last Admin: 10/25/19 15:49 Dose: 10 mg Documented by: Melatonin (Melatonin) 3 mg PO QHS [facility] Last Admin: 10/25/19 22:31 Dose: 3 mg Documented by: Ondansetron HCl (Zofran) 4 mg IV Q6H PRN PRN PRN Reason: Nausea Sodium Chloride () 10 - 40 ml IV UD PRN PRN Reason: SALINE FLUSH Last Admin: 10/26/19 04:45 Dose: 10 ml Documented by: Tamsulosin HCl (Flomax) 0.4 mg PO DAILY [facility] Last Admin: 10/26/19 09:27 Dose: 0.4 mg Documented by: Medical Necessity - Tobacco Use Smoking Status: Former smoker Tobacco Use: Pipe Assessment/Plan All Active Problems (Last Reviewed 10/20/19 @ 17:07 by Le Burgos DO) Angioedema (Acute) Nonischemic cardiomyopathy (Resolved) 59 year old s/p emergent trach for angioedema -no issues after decannulation -flexible laryngoscopy with improved exam -continue BID dressing changes: folded 4x4 and occlusive tape -f/u with me in the office next week
--- NOTE | 2019-10-26 11:59 | PCM.OPRPT ---
Problem List (1) Angioedema Status: Acute Qualifiers: Encounter type: subsequent encounter Qualified Code(s): T78.3XXD - Angioneurotic edema, subsequent encounter Report of Operation Date of Procedure: 10/26/19 Pre-Operative Diagnosis: angioedema Post-Operative Diagnosis: angioedema Surgery/Procedure Performed:: flexible laryngoscopy Description of Procedure: the nose was decongested with oxymetazoline. the flexible scope was placed into the left nasal cavity. the nasopharynx, pharynx and epiglottis were all normal. the cords were crisp and mobile with decreased erythema. the hypopharyngeal and posterior arytenoid edema has improved. visualized subglottis normal.
--- NOTE | 2019-10-26 12:50 | PHA.DC.MC ---
Pharmacy Service has performed discharge medication reconciliation and counseling for this patient. 1. HYDROCHLOROTHIAZIDE 25MG PO DAILY The patient's discharge medication list was reviewed for discrepancies and discrepancies were resolved. Home Medications Lansoprazole [Prevacid] 15 mg PO DAILY 05/05/14 diphenhydramine 25 mg capsule 25 mg PO QHS PRN 11/06/18 tamsulosin 0.4 mg capsule 0.4 mg PO DAILY 90 Days #90 cap 11/06/18 Citalopram [Celexa] 20 mg PO DAILY 10/20/19 Acetaminophen [Tylenol Tablet] 650 mg PO Q4H PRN PRN tab 10/26/19 Hydrochlorothiazide [Hctz] 25 mg PO DAILY 30 Days #30 tab 10/26/19 The patient was counseled on the following discharge medications and changes in medications for homegoing were reviewed. The Reason for Use, instructions for use, and potential side effects were reviewed for all new medications. The patient's questions regarding all of their medications were answered. The patient was able to verbally demonstrate an understanding of their discharge medications.
[2019-10-26] MEDS: hydroCHLOROthiazide 25 MG Tablet PO (12:59)
--- NOTE | 2019-10-26 14:08 | PCM.PN.PUL ---
Subjective: Asked to see patient by hospitalist secondary to discharge recommendations. Patient did not have a nocturnal oximetry overnight, but is doing well on room air at this time. Patient is requesting discharge home. Patient is denying any pain at the tracheostomy site. Patient reportedly tolerating secretions well. - Physical Exam Vitals/I&O's: Vital Signs Temp Pulse Resp BP Pulse Ox 36.9 C 83 20 H 157/88 H 96 10/26/19 09:15 10/26/19 09:15 10/26/19 09:15 10/26/19 09:15 10/26/19 09:15 Oxygen Flow Rate (L/min) 2 Oxygen Delivery Method Room Air Weight: 145.1 kg Body Mass Index (BMI) 51.2 Intake and Output for Last 24 Hours 10/24/19 10/25/19 10/26/19 23:59 23:59 23:59 Intake Total 1065 / 1065 860 / 860 480 / 480 Output Total 200 / 200 Balance 1065 / 1065 660 / 660 480 / 480 General: Alert, Oriented x3, Cooperative, No apparent distress, - - Morbidly obese. Good vocalization. Appears older than stated age. HEENT: Atraumatic, PERRLA, EOMI, Normocephalic, - - Tracheostomy site is clean, dry and intact. Oral: Moist Mucosa, No Gingival or Mucosal Lesions/ Ulcerations Neck: Supple, No JVD, No Nodes, Trachea Midline Lungs: No rhonchi, No wheeze, No rales, Diminished Cardiovascular: Regular rate, Regular Rhythm, Normal S1, Normal S2, No murmurs, No rub noted, No Gallop Abdomen: Bowel Sounds Present, Soft, Non Tender, Non-Distended, Obese Extremities: No clubbing, No cyanosis, Edema Skin: No rashes, No breakdown Musculoskeletal: No Tenderness to Palpation of Joints or Extremities Lymphatic: No Cervical, Supraclavicular, or Inguinal Adenopathy Neurological: Cranial nerves II-XII grossly intact, Neuro grossly intact, Motor Exam 5/5 strength throughout Psych/Mental Status: Alert and oriented to time, place, person, mood and affect Laboratory Results 10/26/19 09:30: Sodium 139, Potassium 3.6, Chloride 104, Carbon Dioxide 28.0, Anion Gap 7, BUN 15, Creatinine 0.87, Estim Creat Clear Calc 81.48, Est GFR (MDRD) Af Amer 115, Est GFR (MDRD) Non-Af 95, BUN/Creatinine Ratio 17.2, Glucose 131 H, Calcium 8.7 Medical Necessity - Tobacco Use Smoking Status: Former smoker Tobacco Use: Pipe Assessment/Plan All Active Problems (Last Reviewed 10/20/19 @ 17:07 by Le Burgos DO) Angioedema (Acute) Nonischemic cardiomyopathy (Resolved) RECOMMENDATIONS: 1. Patient decannulated and tolerating well. Follow-up with ENT. 2. Okay to reinitiate restart home antihypertensive regimen. 3. Follow-up with nurse practitioner in 2 weeks to establish care with Dr. Castro 4. Patient would likely benefit from a PSG in 4 to 8 weeks IMPRESSIONS: 1. Acute combined respiratory failure secondary to upper airway compromise in the setting of angioedema, now POD #4 s/p emergent tracheostomy Recent successfully decannulated yesterday and appears to be doing well. Patient asking to leave and shows no signs of stridor or changes in vocalization. Patient would be at high risk for obstructive sleep apnea and can follow-up with us as an outpatient. Would defer tracheotomy management to ENT. Patient will need to heal from tracheotomy prior to sleep study and pulmonary function testing. Patient should have a walking oximetry prior to discharge. 2. Obesity/hypertension/nonischemic cardiomyopathy/IBS/GERD/BPH/neuropathy Complicates care, management, recovery and prognosis. Okay to restart home antihypertensive regimen. Code Visit Inpatient E&M: 50213 Subs Hosp L2
--- NOTE | 2019-10-27 14:04 | CASEMGMT ---
SUSHIL ALEX Discharge Follow-Up Phone Call. Carolyn: Jez Strata: 4 Discharge Date: 10/26/19 Adm Dx: Angioedema Call to pt to inquire about how he has been doing since being discharged from the hospital. Pt states he's doing pretty good. He states he is still tired but realizes it'll take time to get rested up. He states he was able to get all of the prescriptions without any difficulties. He denies having questions about the discharge instructions, medications, or follow-up appts. He denies any concerns/needs. Sonia MCDONOUGH RN CM
== END 2019-10-26 13:38 | disposition home or self-care (01) | DRG 4 ==
LOC: ED 13:54 → SDC 13:58 → AC 14:08 → ICU 15:44 → SDC 16:03 → ICU 10-24 07:55 → PCU 10-24 18:26
PROVIDERS: Internal Medicine; Internal Medicine Nephrology; Otolaryngology Otolaryngology/Facial Plastic Surgery; Admitting Provider Internal Medicine; Emergency Provider Emergency Medicine; Family Provider Internal Medicine; PCP Internal Medicine; Visit Provider Internal Medicine
PROC: 0B110F4 Bypass Trachea to Cutaneous with Tracheostomy Device, Open Approach (ICD-10-PCS; principal; 2019-10-20 14:00)
DX: T78.3XXA Angioneurotic edema, initial encounter (principal); J96.01 Acute respiratory failure with hypoxia; J96.02 Acute respiratory failure with hypercapnia; I46.9 Cardiac arrest, cause unspecified; Z68.43 Body mass index [BMI] 50.0-59.9, adult; I42.8 Other cardiomyopathies; I27.20 Pulmonary hypertension, unspecified; E78.5 Hyperlipidemia, unspecified; I10 Essential (primary) hypertension; K58.9 Irritable bowel syndrome, unspecified; G25.81 Restless legs syndrome; E66.01 Morbid (severe) obesity due to excess calories; N40.0 Benign prostatic hyperplasia without lower urinary tract symptoms; K21.9 Gastro-esophageal reflux disease without esophagitis; G62.9 Polyneuropathy, unspecified; Z87.891 Personal history of nicotine dependence
CPT/HCPCS: 31500; 31720; 36415; 71045; 74018; 74019; 80048; 80053; 82550; 82803; 82962; 83036; 83735; 84100; 84478; 85025; 92507; 92526; 92610; 94002; 94003; 94640; 94660; 94762; 95831; 97110; 97162; 97166; 97530; 97802; 97803; 99251; 99285; J7030; A4216; G0463; J0295; J0330; J3490

== ENCOUNTER → 2019-11-02 09:21 | Outpatient (CLI) | payer BC, SELFPAY ==
[2019-10-20 15:51] VITALS: BMI 51.2
--- NOTE | 2019-11-02 09:25 | RAD_ITS ---
STUDY: X-RAY CHEST REASON FOR EXAM: Male, 59 years old. Follow-up pneumonia TECHNIQUE: PA and lateral views of the chest. COMPARISON: October 21, 2019 chest x-ray FINDINGS: Tracheostomy tube is been removed. Is trace blunting of the right costophrenic angle probable scarring. There is no demonstrated pleural abnormality. Normal size heart. Normal mediastinum and yessenia. Normal visualized pulmonary arteries. Normal visualized aortic arch and descending thoracic aorta. There are diffuse degenerative changes of the visualized thoracic spine. Normal visualized ribs, clavicles, and shoulders. There is no demonstrated abnormality of the visualized soft tissue structures of the upper abdomen. RAD/Chest PA and Lateral IMPRESSION: Improved aeration of the lungs. Interval removal of the tracheostomy tube. Trace right lower lobe atelectasis probable scarring. Electronically Signed: Francisca Sheffield MD at 16:54 EST Tel , Service support ,
== END ==
PROVIDERS: Family Provider Internal Medicine; PCP Internal Medicine; Referring Provider Nurse Practitioner; Visit Provider Nurse Practitioner
DX: J18.9 Pneumonia, unspecified organism (principal)
CPT/HCPCS: 71046

== ENCOUNTER → 2019-12-15 09:37 | Outpatient (CLI) | payer BC, SELFPAY ==
[2019-12-04 10:37] VITALS: BMI 48.1
--- NOTE | 2019-12-15 09:38 | ECHOCS_ITS ---
Reason For Study: DYSPNEA/SOB Procedure This was a 2D Doppler, Color Flow transthoracic echocardiogram. The study was technically difficult. Due to body habitus. Contrast injection was performed. Exam performed in department. Left Ventricle Based upon the 2D echocardiographic and contrast enhanced images obtained there appears to be grossly normal left ventricular size, wall motion, and systolic function. The estimated ejection fraction is 60 %. No evidence for diastolic dysfunction. Right Ventricle Normal RV size. Normal systolic function. Atria Normal left atrium. Normal right atrium. No doppler evidence for ASD. Mitral Valve There is no mitral annular calcification. Normal mitral valve. Trivial mitral valve insufficiency. Tricuspid Valve Normal tricuspid valve. Trivial tricuspid valve insufficiency. Right ventricular systolic pressure estimated to be 32 mmHg. Aortic Valve Trisinus/trileaflet aortic valve. Mild focal aortic valve calcification. Pulmonic Valve The pulmonic valve is not well visualized. Mild (1+) pulmonic valve insufficiency. Great Vessels Normal sized aortic root. Pericardium/Pleural No pericardial effusion. Medication 22 gauge I.V. with prn adaptor inserted into right arm. Diluted definity 4.0ml given slow IV push to enhance endocardial definition. MMode/2D Measurements & Calculations LVIDd: 5.6 cm IVSd: 1.1 cm Ao root diam: 3.2 cm LVIDs: 3.7 cm LVPWd: 1.1 cm RVDd: 3.7 cm FS: 33.5 % LAV(MOD-bp): 52.1 ml LA A4 area: 17.5 cm2 LA dimension(2D): 4.0 cm LAV(MOD-bp) Indexed: 21.5 ml/m2 LAV(MOD-sp2): 49.7 ml LAV(MOD-sp4): 49.1 ml RA A4 area: 13.8 cm2 Time Measurements MV dec time: 0.19 sec Doppler Measurements & Calculations MV E max garret: 88.1 cm/sec Lat Peak E' Garret: 12.5 cm/sec Med Peak E' Garret: 14.5 cm/sec MV A max garret: 58.7 cm/sec E/E' lat: 7.1 E/E' med: 6.1 MV E/A: 1.5 Ao V2 max: 117.1 cm/sec LV V1 max: 81.3 cm/sec PA V2 max: 130.0 cm/sec Ao max P.5 mmHg LV V1 max P.6 mmHg TR max garret: 267.5 cm/sec TR max P.7 mmHg Interpretation Summary The study was technically difficult. Contrast injection was performed. Based upon the 2D echocardiographic and contrast enhanced images obtained there appears to be grossly normal left ventricular size, wall motion, and systolic function. The estimated ejection fraction is 60 %. Trivial mitral valve insufficiency. Trivial tricuspid valve insufficiency. Mild focal aortic valve calcification. Mild (1+) pulmonic valve insufficiency. Right ventricular systolic pressure estimated to be 32 mmHg. No evidence for diastolic dysfunction. Ordering Physician: Benedict Henning Referring Physician: Rosa Acosta Performed By: Lotus Norris, LEYLA, RVT
== END ==
PROVIDERS: Family Provider Internal Medicine; PCP Internal Medicine; Referring Provider Internal Medicine Cardiovascular Disease; Visit Provider Internal Medicine Cardiovascular Disease
DX: R06.00 Dyspnea, unspecified (principal); R06.02 Shortness of breath; I42.8 Other cardiomyopathies; I27.20 Pulmonary hypertension, unspecified; T78.3XXD Angioneurotic edema, subsequent encounter; E78.00 Pure hypercholesterolemia, unspecified; I10 Essential (primary) hypertension
CPT/HCPCS: 93306; Q9957; A4216; C8929

== ENCOUNTER → 2020-12-20 09:28 | Outpatient (CLI) | payer BC, SELFPAY ==
[2019-12-04 10:37] VITALS: BMI 48.1
--- NOTE | 2020-12-20 09:33 | US_ITS ---
STUDY: RENAL ULTRASOUND - COMPLETE REASON FOR EXAM: Male, 60 years old. PROTEINURIA TECHNIQUE: Ultrasound evaluation of the kidneys was performed with real-time and static mata-scale imaging. COMPARISON: None. FINDINGS: RIGHT KIDNEY: Normal location of the right kidney, which is normal in size. The right kidney measures 11.9 cm x 6.1 cm x 5.7 cm. There is a normal cortex of the right kidney. The renal cortex measures 1.8 cm. There is no right renal mass or cyst. There are no right renal calculi. There is no right hydronephrosis. DISTAL RIGHT URETER: There is non-visualization of the distal right ureter. There is no demonstrated right ureterovesical junction calculus. There is no demonstrated right ureteral jet. LEFT KIDNEY: Normal location of the left kidney, which is normal in size. The left kidney measures 11.9 cm x 5.4 cm x 6.1 cm. There is a normal cortex of the left kidney. The renal cortex measures 1.8 cm. There is a 1 cm x 0.8 cm x 0.8 cm renal cyst. There are no left renal calculi. There is no left hydronephrosis. DISTAL LEFT URETER: There is non-visualization of the distal left ureter. There is no demonstrated left ureterovesical junction calculus. There is no demonstrated left ureteral jet. BLADDER: The distended urinary bladder has a volume of 112 ml. There is a normal wall thickness of the distended urinary bladder. There is no demonstrated mass within the urinary bladder. There are no demonstrated bladder calculi. US/Kidney and Bladder IMPRESSION: Normal ultrasound of the kidneys and urinary bladder. Electronically Signed: Rl Pierre MD at 12:38 EST , Service support ,
== END ==
PROVIDERS: PCP Internal Medicine; Referring Provider Internal Medicine; Visit Provider Internal Medicine
DX: R80.9 Proteinuria, unspecified (principal)
CPT/HCPCS: 76770

== ENCOUNTER 2022-09-14 16:12 | Emergency (ER) | payer BC, SELFPAY ==
[2022-09-14 16:13] VITALS: BP 208/112; PULSE 91; RESP 14; TEMP 36.8; O2SAT 97; BMI 52.9
--- NOTE | 2022-09-14 16:27 | VDLE_ITS ---
Reason For Study: EDEMA RIGHT LEFT GSV is normal. CFV is compressible, spontaneous, phasic, CFV is compressible, spontaneous, phasic, competent, and demonstrates normal competent and demonstrates normal augmentation. augmentation. FV is compressible, spontaneous, phasic, competent and demonstrates normal augmentation. POP V is compressible, spontaneous, phasic, competent and demonstrates normal augmentation. T/P Trunk is compressible. PTV is compressible. RT PerV is compressible. Procedure This is a venous duplex using B-mode, color flow and spectral Doppler. Exam performed portable in ED. The exam was diagnostic. Technically difficult study due to edema and body habitus. A preliminary report was called and/or faxed to Cassy ESPINO. VL/Venous Duplex US, Unilateral Interpretation Summary There is no evidence of right lower extremity deep vein thrombosis. Right great saphenous vein appears patent and compressible segmentally. Normal flow patterns left common f emoral vein Technically difficult examination as noted. Ordering Physician: Cassy Cross Referring Physician: Rosa Acosta Performed By: Kevin Quigley RVT
--- NOTE | 2022-09-14 16:29 | EDS_ITS ---
HPI <KENZIE Celeste - Last Filed: 09/14/22 21:06> History of Present Illness Chief Complaint: Shortness of Breath Narrative Narrative: 62-year-old male with PMH of HTN, HLD was sent here by his PCP for an ultrasound of his right leg to rule out a blood clot. He has chronic right leg swelling after knee surgery but over the last 5 days the swelling below the knee seemed worse. He also had some pain in the toe and dorsum of his foot. Denies trauma or skin changes. He also had intermittent short of breath. He saw his PCP for the symptoms this morning. They did outpatient blood work including CBC, CMP, and troponin which were only remarkable for mildly elevated liver enzymes. Patient was sent here for the ultrasound. He has no history of DVT/PE. No recent surgery or travel. PFSH <KENZIE Celeste - Last Filed: 09/14/22 21:06> [facility] Medical History (Updated 09/14/22 @ 21:06 by KENZIE Celeste) Essential (primary) hypertension Irritable bowel syndrome (IBS) Nonischemic cardiomyopathy Obesity Palpitations Pulmonary hypertension Pure hypercholesterolemia Restless legs syndrome (RLS) Home Medications diphenhydramine HCl 25 mg capsule 25 mg PO QHS PRN Sleep 11/06/18 [History Last Taken Unknown] tamsulosin 0.4 mg capsule 0.4 mg PO DAILY prostate 90 days #90 caps 11/06/18 [History Last Taken Unknown] citalopram 20 mg tablet 20 mg PO DAILY anxiety 10/20/19 [History Last Taken Unknown] acetaminophen 325 mg tablet 650 mg PO Q4H PRN PRN Pain Or Fever 10/26/19 [Rx Last Taken Unknown] carvedilol 6.25 mg tablet 6.25 mg PO BID 12/04/19 [History Last Taken Unknown] celecoxib 200 mg capsule (Celebrex) 200 mg PO DAILY 12/04/19 [History Last Taken Unknown] gabapentin 600 mg tablet (Neurontin) 1,200 mg PO QHS 12/04/19 [History Last Taken Unknown] hydrochlorothiazide 25 mg tablet 25 mg PO DAILY 12/04/19 [History Last Taken Unknown] lansoprazole 15 mg capsule,delayed release 30 mg PO DAILY gerd 12/04/19 [History Last Taken Unknown] Allergy/AdvReac Type Severity Reaction Status Date / Time lisinopril AdvReac Angioedema Verified 12/04/19 10:37 Family History Mother Cancer esophogeal Surgical History History of carpal tunnel release of both wrists History of cholecystectomy History of open reduction and internal fixation (ORIF) procedure Status post right inguinal hernia repair Social History (Updated 12/04/19 @ 11:[address] Benedict Henning MD) Smoking Status: Former smoker how long ago did patient quit smokin years ago alcohol intake: former details: not for last few weeks caffeine: Yes Type: coffee Number of servings: 2 ROS <KENZIE Celeste - Last Filed: 09/14/22 21:06> ROS ED ROS Narrative Constitutional: Negative for fever, chills, malaise. Eyes: Negative for visual change. ENT: Negative for sore throat, ear pain, rhinorrhea. CVS: Negative for palpitations, chest pain, syncope. Respiratory: Positive for shortness of breath. Negative for cough. GI: Negative for abdominal pain, nausea, vomiting, diarrhea, constipation, melena, hematochezia. : Negative for dysuria, hematuria or frequency. Neuro: Negative for headache, motor/sensory dysfunction. Skin: Negative for rash, abscess, or wound. Musc: Negative for joint pain, swelling, trauma. Heme: Negative for easy bruising, bleeding, lymphadenopathy. EXAM <KENZIE Celeste - Last Filed: 09/14/22 21:06> Physical Exam Narrative Exam Narrative: CONST: Patient sitting in no acute distress. EYES: Normal inspection. ENT: Normal inspection, moist mucous membranes. NECK: Normal inspection. RESP: No respiratory distress, CTAB. CVS: Regular rate and rhythm, no murmur, no gallop. ABD: Soft and nontender, no guarding or rebound, nondistended. SKIN: Color normal, no rash, warm, dry, intact. EXTREMITIES: Right calf is larger than left with nonpitting edema, 2+ DP pulses. No bony tenderness, full ROM, normal strength and sensation. NEURO: Oriented x4. PSYCH: Normal affect. Const Vital Signs: 09/14/22 16:13 09/14/22 16:54 09/14/22 19:14 Temperature 98.2 F Temperature Source Temporal Pulse Rate 91 90 98 Respiratory Rate 14 18 18 Blood Pressure 208/112 H 178/100 H 170/84 H Blood Pressure Mean 144 126 Pulse Ox 97 97 95 Oxygen Delivery Method Room Air Room Air <Dr. Yrn Stafford MD - Last Filed: 09/14/22 19:05> Physical Exam Const Vital Signs: 09/14/22 16:13 09/14/22 16:54 09/14/22 19:14 Temperature 98.2 F Temperature Source Temporal Pulse Rate 91 90 98 Respiratory Rate 14 18 18 Blood Pressure 208/112 H 178/100 H 170/84 H Blood Pressure Mean 144 126 Pulse Ox 97 97 95 Oxygen Delivery Method Room Air Room Air MDM <KENZIE Celeste - Last Filed: 09/14/22 21:06> MDM MDM Narrative Medical decision making narrative: Patient has atraumatic right leg swelling and intermittent shortness of breath. He had a work-up at his primary care office for these issues today. I am able to see the labs. CBC and CMP were overall unremarkable which showed mild elevation in LFTs at 41/72. Troponin and BNP were both within normal limits. Right leg ultrasound here is negative for DVT. With elevated D-dimer CTA was obtained which was negative for PE or acute findings. At this time he is stable for outpatient management. The note from today's PCP visit states he is being referred to cardiology for an echo. They also increased his carvedilol today which should address his hypertension. Patient was discharged in stable con dition. Lab Data Attestation: I reviewed the patient's lab results. Labs: Laboratory Results - last 24 hr 09/14/22 16:45 D-Dimer Quant (PE/DVT) 0.86 H* Radiography Diagnostic Testing: Clinical Impression(s) from Imaging Studies Venous Doppler Study 09/14/22 16:27 Interpretation Summary There is no evidence of right lower extremity deep vein thrombosis. Right great saphenous vein appears patent and compressible segmentally. Normal flow patterns left common femoral vein Technically difficult examination as noted. Ordering Physician: Cassy Cross Referring Physician: Rosa Acosta Performed By: Kevin Quigley RVT Chest X-Ray 09/14/22 16:55 IMPRESSION: No active disease. Electronically Signed: Eloy Leahy MD at 17:15 EDT Reading Location ID and State: [facility] / [employer] Tel , Service support , Chest CTA 09/14/22 17:32 IMPRESSION: Normal CTA chest examination, without a demonstrated pulmonary embolism or arterial dissection. Electronically Signed: Eloy Leahy MD at 18:51 EDT Reading Location ID and State: [facility] / [employer] Tel , Service support , <Dr. Yrn Stafford MD - Last Filed: 09/14/22 19:05> [facility] Lab Data Labs: Laboratory Results - last 24 hr 09/14/22 16:45 D-Dimer Quant (PE/DVT) 0.86 H* Radiography Diagnostic Testing: Clinical Impression(s) from Imaging Studies Venous Doppler Study 09/14/22 16:27 Interpretation Summary There is no evidence of right lower extremity deep vein thrombosis. Right great saphenous vein appears patent and compressible segmentally. Normal flow patterns left common femoral vein Technically difficult examination as noted. Ordering Physician: Cassy Cross Referring Physician: Rosa Acosta Performed By: Kevin Quigley, [place] Chest X-Ray 09/14/22 16:55 IMPRESSION: No active disease. Electronically Signed: Eloy Leahy MD at 17:15 EDT Reading Location ID and State: [id number] / [employer] Tel , Service support , Chest CTA 09/14/22 17:32 IMPRESSION: Normal CTA chest examination, without a demonstrated pulmonary embolism or arterial dissection. Electronically Signed: Eloy Leahy MD at 18:51 EDT , Treatment and Re-Evaluation Narrative: Seen and evaluated independently and in conjunction with physician printing assistant. Agree with notes above unless documented otherwise. Patient with a newly swollen right lower extremity without calf or thigh pain, as well as dyspnea with exertion that has been for much longer. He states he feels like it is just because he has been gaining a lot of weight, he denies any chest discomfort with exertion, palpitations, near-syncope or syncope. When he rests he is a lot better. On exam, he is obese, his right lower extremity is somewhat edematous without erythema or calf tenderness or palpable cord. Ultrasound is negative for DVT, we did a D-dimer as well because of his dyspnea, it was abnormal so we did CT angiography of the chest which was negative for pulmonary embolus or any other acute abnormality. Stable for follow-up. Blood pressure is high, medications were adjusted today, follow-up as directed by his PCP. Discharge Plan Triage Chief Complaint: Shortness of Breath Other Complaint: Lower Extremity Injury ED Midlevel Provider: Cassy Cross ED Provider: Yrn Stafford Dx/Rx/DC Orders Clinical Impression: Dyspnea, Edema of right lower extremity, Chronic hypertension Instructions: ED Dyspnea, ED Peripheral Edema, Unilateral Prescriptions: No Action tamsulosin 0.4 mg capsule 0.4 mg PO DAILY 90 Days Qty: 90 diphenhydramine HCl 25 mg capsule 25 mg PO QHS PRN (Reason: Sleep) hydrochlorothiazide 25 mg tablet 25 mg PO DAILY carvedilol 6.25 mg tablet 6.25 mg PO BID Rx Instructions: must administer with a meal/food gabapentin [Neurontin] 600 mg tablet 1,200 mg PO QHS celecoxib [Celebrex] 200 mg capsule 200 mg PO DAILY lansoprazole 15 mg capsule,delayed release(DR/EC) 30 mg PO DAILY citalopram 20 MG tablet 20 mg PO DAILY Label Comments: TAKE 1 (ONE) TABLET ONCE DAILY acetaminophen 325 MG tablet 650 mg PO Q4H PRN PRN (Reason: Pain Or Fever) 0RF Primary Care Provider: Rosa Acosta Referrals: Rosa Acosta DO [Primary Care Provider] - Activity Restrictions/Additional Instructions: Today there were no signs of blood clots in your chest or your legs. Please follow-up with your doctor for further work-up of your shortness of breath. It looks like they referred you back to cardiology to have another echo done. Return to the ER if symptoms change or worsen. Disposition Disposition: Home, Self Care Discharge Date/Time: 09/14/22 19:16
[2022-09-14 16:54] VITALS: BP 178/100; PULSE 90; RESP 18; O2SAT 97
--- NOTE | 2022-09-14 16:55 | RAD_ITS ---
STUDY: X-RAY CHEST REASON FOR EXAM: Male, 62 years old. dyspnea TECHNIQUE: PA and lateral views of the chest. COMPARISON: 11/02/2019 FINDINGS: The lungs are clear and expanded. Slightly elevated right hemidiaphragm which is unchanged. Normal size heart. Normal mediastinum and yessenia. Normal visualized pulmonary arteries. Normal visualized aortic arch and descending thoracic aorta. Normal visualized thoracic spine. Normal visualized ribs, clavicles, and shoulders. There is no demonstrated abnormality of the visualized soft tissue structures of the upper abdomen. RAD/Chest PA and Lateral IMPRESSION: No active disease. Electronically Signed: Eloy Leahy MD at 17:15 EDT ,
[2022-09-14 17:12] LABS: D-Dimer Quantitative (DVT/PE) 0.86 FEU/ug/m (0.27-0.49)
--- NOTE | 2022-09-14 17:32 | CT_ITS ---
STUDY: CTA CHEST REASON FOR EXAM: Male, 62 years old. dyspnea, rule out PE RADIATION DOSAGE (If Supplied By Facility): CTDIvol = ( 11.47 ) mGy, DLP = ( 565.97 ) mGycm TECHNIQUE: The examination was performed with the intravenous administration of IV 100mL Isovue-370. Post-processing of the angiographic images was performed, with multiplanar reformation and 3D reconstruction. Individualized dose optimization techniques were used for this CT. COMPARISON: 03/02/2014, chest x-ray earlier today FINDINGS: Normal enhancement of the main pulmonary artery and right and left pulmonary arteries. Normal enhancement of the bilateral peripheral pulmonary arteries. There is no demonstrated pulmonary embolism. Normal thoracic aorta and visualized great vessels. There is no demonstrated aortic dissection. Normal heart and pericardium. Normal mediastinum. Normal hilar regions. Normal visualized trachea and bronchi. The lungs are well expanded. Normal pulmonary parenchyma. Normal pleura. Normal chest wall structures. Normal osseous structures. Normal visualized upper abdomen. CT/CTA Chest W/WO Contrast IMPRESSION: Normal CTA chest examination, without a demonstrated pulmonary embolism or arterial dissection. Electronically Signed: Eloy Leahy MD at 18:51 EDT ,
[2022-09-14 19:14] VITALS: BP 170/84; PULSE 98; RESP 18; O2SAT 95
== END 2022-09-14 19:16 | disposition home or self-care (01) ==
PROVIDERS: Physician Assistant; Emergency Provider Emergency Medicine; PCP Internal Medicine; Visit Provider Emergency Medicine
DX: R60.0 Localized edema (principal); I10 Essential (primary) hypertension; M79.676 Pain in unspecified toe(s); E78.5 Hyperlipidemia, unspecified; Z87.891 Personal history of nicotine dependence; M79.673 Pain in unspecified foot; M79.89 Other specified soft tissue disorders; R06.02 Shortness of breath
CPT/HCPCS: 71046; 71275; 85379; 93971; 99282; Q9967; A4216

== ENCOUNTER → 2022-09-14 | Outpatient (CLI) | payer BC, SELFPAY ==
[2022-09-14 12:48] LABS: Bacteria 0 SEEN /hpf (None Seen); Mucous, Urine 0 SEEN /hpf (<or=2+); Red Blood Cells-Urine 0 SEEN /hpf (0-5); Squamous Epithelial Cells - UA 0 SEEN /hpf (0-5); White Blood Cells 0 SEEN /hpf (0-5)
[2022-09-14 12:51] LABS: Color, Urine Yellow (Yellow); Glucose, Dipstick Normal (Normal); Ketone-Dipstick Negative (Negative); Leukocyte Esterase-Dipstick Negative /ul (Negative); Nitrite-Dipstick Negative (Negative); Occult Blood-Urine Negative /ul (Negative); Protein-Dipstick 30 mg/dl (Negative); Urine Bilirubin Dipstick Negative (Negative); Urine Clarity Clear (Clear); Urine Urobilinogen Normal (Normal)
[2022-09-14 12:53] LABS: Absolute Lymphocyte Count 1.58 X10^3/uL (0.83-4.51); Absolute Neutrophil Count 9.2 X10^3/uL (2.0-7.7); Basophil# 0.11 X10^3/uL; Basophil% 0.9 % (0-1); Eosinophil# 0.46 X10^3/uL; Eosinophils% 3.7 % (0-5); Hematocrit 47.2 % (40-54); Hemoglobin 16.5 g/dL (13.0-16.5); Lymphocyte # 1.58 X10^3/ul (0.83-4.51); Lymphocyte % 12.6 % (19-41); Mean Corpuscular Hgb 32.3 pg (27.0-32.0); Mean Corpuscular Volume 92.4 fL (80-94); Mean Platelet Vol. 10.3 fl (6.2-12.0); Monocyte# 1.07 X10^3/uL; Monocyte% 8.5 % (0-10); NRBC Flagged by Analyzer 0 % (0-5); Neutrophil # 9.19 X10^3/uL (2.7-7.7); Neutrophil % 73.1 % (47-70); Platelet Count 238 K/mm3 (150-450); RBC Distribution Width CV 13.3 % (11.6-14.6); RBC Distribution Width SD 45.2 fl (35.1-43.9); Red Blood Count 5.11 M/mm3 (4.6-6.2); White Blood Count 12.6 K/mm3 (4.4-11.0)
[2022-09-14 13:20] LABS: ALB/GLOB Ratio 0.9 RATIO (0.9-2.4); AST(SGOT) 41 U/L (15-37); Alanine Aminotransfer ALT/SGPT 72 U/L (16-61); Albumin, Serum 3.7 g/dL (3.2-5.0); Alkaline Phosphatase 105 U/L (45-117); Anion Gap 7 (5-15); BUN 17 mg/dL (7-18); BUN/Creat Ratio 17.2 RATIO (10-20); Calcium,Total 9.5 mg/dL (8.5-10.1); Chloride 103 mmol/L (98-107); Creatinine, Serum 0.99 mg/dL (0.70-1.30); EST Glomerular Filtration Rate 81 mL/min (>60); Est Glom Filt Rate - Afr Amer 98 mL/min (>60); Globulin 4.3 g/dL (2.2-4.2); Glucose 109 mg/dL (74-106); Potassium 3.5 mmol/L (3.5-5.1); Sodium Level 139 mmol/L (136-145); Troponin-I HS 12 pg/mL (3.0-78.0)
[2022-09-14 14:39] LABS: Hemoglobin A1c 5.4 % (3.8-5.6)
== END | disposition home or self-care (01) ==
LOC: LABSPEC 12:33
PROVIDERS: PCP Internal Medicine; Visit Provider Nurse Practitioner Family
DX: I10 Essential (primary) hypertension (principal); I42.9 Cardiomyopathy, unspecified; R07.9 Chest pain, unspecified; R80.9 Proteinuria, unspecified
CPT/HCPCS: 80053; 81001; 82043; 82570; 83036; 83880; 84484; 85025

== ENCOUNTER → 2022-09-20 | Outpatient (CLI) | payer BC, SELFPAY ==
--- NOTE | 2022-09-20 08:46 | ECHOCS_ITS ---
Reason For Study: CMP Procedure This was a 2D Doppler, Color Flow transthoracic echocardiogram. The study was technically difficult. Contrast injection was performed. Exam performed in department. Left Ventricle Normal LV size. D shaped septum in systole and diastole. Based upon the 2D echocardiographic and contrast enhanced images obtained, there appears to be grossly normal left ventricular size, wall motion, and systolic function. The estimated ejection fraction is 60 %. No evidence for diastolic dysfunction. Right Ventricle Mildly dilated right ventricle. Mild global right ventricular systolic dysfunction. Atria Normal left atrium. The right atrium is mildly enlarged. No doppler evidence for ASD. Mitral Valve There is no mitral annular calcification. Normal mitral valve. Trivial mitral valve insufficiency. Tricuspid Valve Normal tricuspid valve. Mild (1+) tricuspid valve insufficiency. Right ventricular systolic pressure estimated to be 39 mmHg. Aortic Valve Trisinus/trileaflet aortic valve. Mild focal aortic valve calcification. Pulmonic Valve The pulmonic valve is not well visualized. Trivial pulmonic valve insufficiency. Great Vessels Normal sized aortic root. Pericardium/Pleural No pericardial effusion. Medication 22 gauge I.V. with prn adaptor inserted into right arm. Diluted definity 1.5ml given slow IV push to enhance endocardial definition. MMode/2D Measurements & Calculations LVIDd: 5.1 cm IVSd: 1.6 cm Ao root diam: 3.5 cm LVIDs: 3.9 cm LVPWd: 1.5 cm RVDd: 3.7 cm FS: 24.0 % LAV(MOD-bp): 57.7 ml LVAd ap4: 44.3 cm2 SV(MOD-sp4): 99.9 ml LAV(MOD-bp) Indexed: 23.2 ml/m2 LVLd ap4: 9.4 cm LAV(MOD-sp2): 59.2 ml EDV(MOD-sp4): 167.3 ml LAV(MOD-sp4): 54.9 ml EDV(sp4-el): 177.0 ml LVAs ap4: 25.9 cm2 LVLs ap4: 8.2 cm ESV(MOD-sp4): 67.4 ml ESV(sp4-el): 69.7 ml EF(MOD-sp4): 59.7 % EF(sp4-el): 60.7 % SV(sp4-el): 107.4 ml LA A4 area: 19.3 cm2 RA A4 area: 22.1 cm2 Time Measurements MV dec time: 0.18 sec Doppler Measurements & Calculations MV E max garret: 62.1 cm/sec Lat Peak E' Garret: 13.4 cm/sec Med Peak E' Garret: 7.9 cm/sec MV A max garret: 66.2 cm/sec E/E' lat: 4.6 E/E' med: 7.8 MV E/A: 0.94 MV V2 max: 79.8 cm/sec Ao V2 max: 125.1 cm/sec MV max P.5 mmHg MV dec slope: 388.2 cm/sec2 Ao max P.3 mmHg MV V2 mean: 56.9 cm/sec Ao V2 mean: 88.3 cm/sec MV mean P.4 mmHg Ao mean P.6 mmHg MV V2 VTI: 29.5 cm Ao V2 VTI: 24.4 cm LV V1 max: 110.7 cm/sec PA V2 max: 87.4 cm/sec TR max garrte: 301.5 cm/sec LV V1 max P.9 mmHg PA V2 mean: 59.4 cm/sec TR max P.4 mmHg LV V1 mean P.9 mmHg LV V1 mean: 79.8 cm/sec LV V1 VTI: 21.3 cm ECHO/Echo Complete W/ Contrast Interpretation Summary Technically difficult study. Contrast injection was performed. Based upon the 2D echocardiographic and contrast enhanced images obtained, ther e appears to be grossly normal left ventricular size, wall motion, and systolic function. The estimated ejection fraction is 60 %. D shaped septum in systole and diastole. Mildly dilated right ventricle. Mild global right ventricular systolic dysfunction. The right atrium is mildly enlarged. Trivial mitral valve insufficiency. Mild (1+) tricuspid valve insufficiency. Mild focal aortic valve calcification. Trivial pulmonic valve insufficiency. Right ventricular systolic pressure estimated to be 39 mmHg. No evidence for diastolic dysfunction. Ordering Physician: Diana Dupont Referring Physician: Diana Dupont Performed By: Angela Last RCS
== END | disposition home or self-care (01) ==
PROVIDERS: PCP Internal Medicine; Referring Provider Nurse Practitioner Family; Visit Provider Nurse Practitioner Family
DX: I42.9 Cardiomyopathy, unspecified (principal)
CPT/HCPCS: 93306; Q9957; A4216; C8929

== ENCOUNTER → 2022-09-27 | Outpatient (CLI) | payer BC, SELFPAY ==
[2022-09-27 11:30] LABS: AST(SGOT) 32 U/L (15-37); Alanine Aminotransfer ALT/SGPT 64 U/L (16-61); Albumin, Serum 3.2 g/dL (3.2-5.0); Alkaline Phosphatase 90 U/L (45-117); Bilirubin, Direct 0.13 mg/dL (0.00-0.30); Cholesterol 147 mg/dL (200); Globulin 3.9 g/dL (2.2-4.2); High Density Lipoprotein 40 mg/dL; Protein, Total 7.1 g/dL (6.4-8.2); Triglycerides 105 mg/dL; Very Low Density Lipoprotein 21 mg/dL (5-40)
== END | disposition home or self-care (01) ==
LOC: LAB 09:12
PROVIDERS: PCP Internal Medicine; Visit Provider Nurse Practitioner Gerontology
DX: E78.00 Pure hypercholesterolemia, unspecified (principal)
CPT/HCPCS: 36415; 80061; 80076

== ENCOUNTER → 2022-12-17 | Outpatient (CLI) | payer BC, SELFPAY ==
[2022-12-17 12:00] VITALS: PULSE 100; PULSE 101; PULSE 71; PULSE 81; PULSE 95; PULSE 97; PULSE 99; O2SAT 93; O2SAT 94; O2SAT 95; O2SAT 96; O2SAT 97
--- NOTE | 2022-12-17 13:42 | PCM.PSN.6M ---
PSN 6 Minute Walk Test 6 Minute Walk Test 6 Minute Walk Test: 6 Minute Walk Test PSN:6-Minute Walk Test Start: 12/17/22 12:14 Freq: Status: Active Protocol: [id number].[id number] Document 12/17/22 12:00 JR (Rec: 12/17/22 12:17 JR [email or web address]) 6 Minute Walk Test Date Performed 12/17/22 Time Performed 12:00 Height 5 ft 7 in Weight: 138.346 kg Weight in Pounds 305.[address]: Bill Whitman Assistive device used: Cane Pre-test Oxygen Delivery Method Room Air Pulse Ox (%) 93 Pulse Rate (60-100 beats/min) 71 Dyspnea Charisma Scale (0-10) 0 Exertion Charisma Scale (6-20) 6 1st minute Oxygen Delivery Method Room Air Pulse Ox (%) 95 Pulse Rate (60-100 beats/min) 95 2nd minute Oxygen Delivery Method Room Air Pulse Ox (%) 96 Pulse Rate (60-100 beats/min) 99 3rd minute Oxygen Delivery Method Room Air Pulse Ox (%) 94 Pulse Rate (60-100 beats/min) 101 H 4th minute Oxygen Delivery Method Room Air Pulse Ox (%) 95 Pulse Rate (60-100 beats/min) 99 5th minute Oxygen Delivery Method Room Air Pulse Ox (%) 95 Pulse Rate (60-100 beats/min) 100 6th minute Oxygen Delivery Method Room Air Pulse Ox (%) 96 Pulse Rate (60-100 beats/min) 97 Dyspnea Charisma Scale (0-10) 1 Exertion Charisma Scale (6-20) 11 Post-test Oxygen Delivery Method Room Air Pulse Ox (%) 97 Pulse Rate (60-100 beats/min) 81 Full Laps Walked 14 Partial Lap, Number of Tiles Walked 17 Total Distance Walked (ft) 843 Interpretation Interpretation: The patient was noted to walk 843 feet over the course of 6 minutes on room air with the assistance of a cane. The patient was noted to have a lower baseline saturation of 93%, but improved on ambulation. Patient did have a peak heart rate of 101 bpm. These findings are consistent with a musculoskeletal limitation exercise tolerance. Recommendations Recommendations: No supplemental oxygen is indicated at this time.
== END | disposition home or self-care (01) ==
PROVIDERS: PCP Internal Medicine; Visit Provider Internal Medicine Critical Care Medicine
DX: I27.20 Pulmonary hypertension, unspecified (principal)
CPT/HCPCS: 94618

== ENCOUNTER → 2022-12-27 | Outpatient (CLI) | payer BC, SELFPAY ==
--- NOTE | 2022-12-28 08:26 | PFT ---
INTRODUCTION: The patient is a 62-year-old male that presents for pulmonary function studies secondary to a diagnosis of pulmonary hypertension. Respiratory therapy reported good patient effort. Bronchodilators were used during testing. INTERPRETATION: Forced expiration spirometry demonstrates no evidence of a large airways obstructive ventilatory defect. There was no significant response to aerosolized bronchodilators. Spirograms are of good quality and plateau normally. Body plethysmography was performed and reveals lung volumes to be within normal limits. Diffusing capacity by single breath CO was also within normal limits. IMPRESSION: Grossly normal pulmonary function studies.
== END | disposition home or self-care (01) ==
LOC: PSN 09:44
PROVIDERS: PCP Internal Medicine; Referring Provider Internal Medicine Critical Care Medicine; Visit Provider Internal Medicine Critical Care Medicine
DX: I27.20 Pulmonary hypertension, unspecified (principal)
CPT/HCPCS: 94060; 94726; 94729

== ENCOUNTER → 2023-04-24 | Outpatient (CLI) | payer BC, SELFPAY ==
--- NOTE | 2023-04-24 12:35 | CT_ITS ---
EXAM: CT HEAD WITHOUT INTRAVENOUS CONTRAST CLINICAL INDICATION: Change in Mental State 9R41.82) Dizziness TECHNIQUE: Multiple axial images were obtained of the head without intravenous contrast. This CT exam was performed using one or more of the following dose reduction techniques: automated exposure control, adjustment of the mA and/or kV according to patient size, and/or use of iterative reconstruction technique. RADIATION DOSE: CTDIvol = 44.99 mGy, DLP = 897.35 mGy-cmContrast: COMPARISON: No relevant prior studies available. FINDINGS: BRAIN AND EXTRA-AXIAL SPACES: Unremarkable. No intra- or extra-axial hemorrhage. No evidence of acute infarct. No intracranial mass or mass effect. There is preservation of the walker/white matter interface. Posterior fossa structures are unremarkable. Ventricles are appropriate for age. No hydrocephalus. Basal cisterns are patent. BONES/JOINTS: Small ossified nodule posterior to the right sphenoid wing appears incidental and benign. Old healed fracture of the right zygomatic arch with mild depression of the central arch. No discrete lytic or blastic abnormalities. SINUSES: Unremarkable as visualized. Clear. MASTOID AIR CELLS: Unremarkable. Clear. ORBITS: Visualized globes, extraocular muscles, optic nerves and retrobulbar fat appear unremarkable. SELLA: Empty sella, usually normal variation. DENTAL: Edentulous maxilla. Multiple missing teeth in the mandible. CT/Brain/Head without Contrast IMPRESSION: No acute intracranial abnormality Electronically Signed: Katherine Cruz MD at 5:10 EDT ,
== END | disposition home or self-care (01) ==
LOC: CT 12:34
PROVIDERS: PCP Internal Medicine; Referring Provider Internal Medicine; Visit Provider Internal Medicine
DX: R41.82 Altered mental status, unspecified (principal)
CPT/HCPCS: 70450

== ENCOUNTER 2023-05-29 13:00 | Outpatient (RCR) | payer BC, SELFPAY ==
--- NOTE | 2023-04-22 18:21 | HP.PTEVAL_ITS ---
Patient's Visit Information FELIX GOTTLIEB Jr. is a 63 year old M referred to Physical Therapy by Dr. Rosa Acosta DO with a diagnosis of DIZZY ,BALANCE CHANGES. Date of Evaluation: 04/22/23 Physical Therapist: Reid Davis, PT, Cert MDT, OCS - Visit Plan Frequency: 2x /Week Duration: 4 Weeks Plan: PT INTERVENTIONS ASSESS BY VESTIBULAR PT FOR VERTIGO - Subjective This 63 y/o male presents to physical therapy with dizziness and balance changes. Patient has had light dizziness `~ 3months which has gradually worsen. Seen DR garay and plan to get a CTSACN . Patient also has had focusing issues and memory loss . Patient ahs had intermittent SUAREZ ,feels like could have syncope. Patient can have dizziness with head movements which can be like a dazed affect . Patient has no dizziness with [id number]. Patient has BP but is control with medication. Patient has no LOB . But walking on different surfaces is worse with knee pain on right side . Patient seen and balance assessment and/or vertigo. Patient goals not to have any dizziness. SOCAIL: . VOACTION: retired - Objective POSTURE: mild forward posture. GAIT: reciprocal pattern No LOB. MMT: quads/hamstrings/hip/ankle 5/5. FLEXABILITY: hamstrings min tight. STAIRS: alternating - Balance/Special Test Scores Functional Gait Assessment Score: 25 % Disability: 16.6700 CATSIB Score (Max score 120 seconds): 100 Lower Extremity Functional Score: 54 - Goals Goal 1:: Provide program for dizziness and balance Goal Time Frame: 4-6 Weeks Goal 2:: Patient improve CATSIBE by 5 points to improve balance Goal Time Frame: 4-6 Weeks Goal 3:: Patient to improve LFES score by 5 points to improve function and dizziness Goal 4:: Patient improve functional gait assessment score by 5 points to improve balance Goal Time Frame: 4-6 Weeks - Rehabilitation Potential Physical Therapy Diagnosis: This patient has had episodes dizziness with falling ,feeling fuzzy/daze in head with head movements ,plan to have CATSCAN and blood work .Dr thought to have vertigo Rehabilitation Potential: Good - Anticipated Interventions Patient/Client Instruction: Educate patient on: Condition, Plan of Care For the Purpose of:: To improve muscle performance and motor function, To increase tolerance to activity/condition/position, To improve ability of physical actions for home/community/work/leisure, To improve gait and locomotor functions, To improve balance, Other Other: BALANCE Therapeutic Exercise to Include: Endurance training, Balance training, Gait and locomotor training Comment: VESTIBUAR For the Purpose of:: To improve muscle performance and motor function, To increase tolerance to activity/condition/position, To improve ability of physical actions for home/community/work/leisure, To improve balance Other: DIZZIENSS Thank you for the opportunity to evaluate your patient. For Medicare and Medicare HMO plans, please review the plan of care and approve it. It will need to be FAXED BACK to us at [phone] for Medicare purposes. For Medicare only, by signing this I certify the plan of care. Please let me know if there are questions or concerns regarding this plan of care. Physician Signature: Date:
--- NOTE | 2023-08-02 07:53 | HP.PTDCSUM ---
Discharge Summary D/C summary: It has been my pleasure to treat FELIX GOTTLIEB Jr. referred by Dr. Rosa Acosta DO, with the diagnosis of DIZZY ,BALANCE CHANGES for a total of 2 visit(s). Discharge Date: Please see the following information for a summary of their discharge status. Subjective Subjective: Lightheadedness is most of the problem. No spinning. Started 4 months ago insidiously intermittently, improving. Gets it less frequently, happens if changes direction quickly. May have some neuropathy. Can make hime weave back and forth. None lying down or sitting up but can hapopen due to standing. No falls. No AD.Occasionally uses cane for longer distances. Sleep is fine. Retired. Activities at home pretty normal and not avoiding any activities. Overall Improvement % Improvement: 50 Objective Objective/Function: FGA better - positional HD adn roll test. Oculomotor: no nystagmus with gaze or head shake - skew eye deviaiton - ocular tilt normal pursuit and saccades without symptoms. VOR is asymptomatic and WNL DVA 4 lines difference from sVA Steps are tough due to R knee problems as is stepping over. Goals Goal 1:: Provide program for dizziness and balance Goal Progress: Progressing Goal 2:: Patient improve CATSIBE by 5 points to improve balance Goal 3:: Patient to improve LFES score by 5 points to improve function and dizziness Goal 4:: Patient improve functional gait assessment score by 5 points to improve balance Goal Progress: Progressing Plan Plan: f/u two weeks for progression of habituation, possible MSQ if better OR computerized BAL testing if no better. D/C Information d/c sentence: If there are questions or concerns regarding this patient's physical therapy, please feel free to call me at [phone]. Thank you for the referral of this patient. Sincerely, Reid Davis, PT, Cert MDT, [facility] Balance/Gait/Functional tests Balance/Special Test Scores Functional Gait Assessment Score: 26 % Disability: 13.3400 CATSIB Score (Max score 120 seconds): 94 Lower Extremity Functional Score: 54 Improvement % Improvement: 50
== END 2023-05-29 19:00 | disposition home or self-care (01) ==
LOC: PT 13:00
PROVIDERS: PCP Internal Medicine; Referring Provider Internal Medicine; Visit Provider Internal Medicine
DX: R26.89 Other abnormalities of gait and mobility (principal); R42 Dizziness and giddiness
CPT/HCPCS: 97162; 97530

== ENCOUNTER → 2023-06-27 | Outpatient (CLI) | payer BC, SELFPAY ==
--- NOTE | 2023-06-27 17:50 | STRESSREP ---
Stress Test Report Pharmacologic myocardial perfusion stress test. 63-year-old male with a history of chest pain and palpitations Resting EKG demonstrates sinus rhythm with a rate of 61 bpm. Resting blood pressure is 118/80 mmHg. 0.4 mg of regadenoson was infused per usual protocol followed by rapid intravenous saline flush injection. Continuous EKG monitoring was performed. The maximum heart rate was 91 bpm which was 58% of max impacted heart rate the maximum workload was 1 metabolic equivalent. At rest there were no ST or T wave changes noted to suggest ischemia and at peak infusion nonspecific ST changes were noted which did not meet the criteria for ischemia. No clinical angina is noted. The final blood pressure was 108/72 mmHg. Myocardial perfusion protocol. 15.0 mCi of technetium 99m sestamibi was injected at rest. 0.4 mg of regadenoson was infused per usual protocol. At peak infusion 44.9 mCi of technetium 99m sestamibi was injected stress images were obtained stress and rest images were reconstructed and compared in the short axis vertical long and horizontal long axis. Gated images were also obtained. Perfusion SPECT analysis: Review of the stress images demonstrate normal uptake of tracer noted in all areas of the myocardium. The resting images similar demonstrated normal uptake of tracer noted in all areas of the myocardium. No areas of reversibility are noted to suggest ischemia and no previous infarct is noted. Gated SPECT analysis: The gated ejection fraction is 57%. Conclusion: Normal pharmacologic myocardial perfusion stress test. Preserved ejection fraction.
== END | disposition home or self-care (01) ==
LOC: CVS 06:42
PROVIDERS: PCP Internal Medicine; Referring Provider Nurse Practitioner Gerontology; Visit Provider Nurse Practitioner Gerontology
DX: R00.2 Palpitations (principal); R07.9 Chest pain, unspecified
CPT/HCPCS: 78452; 93017; 93225; 93226; A9500; A4216; J2785

== ENCOUNTER 2024-04-15 09:01 | Observation (INO) | payer BC, MEDICARE, SELFPAY ==
[2024-04-15] VITALS (12 sets, daily range): BP systolic 122–154; BP diastolic 71–99; PULSE 59–80; RESP 13–18; TEMP 35.9–36.8; O2SAT 93–98; BMI 43.7; BMI 33.1
--- NOTE | 2024-04-15 09:07 | CT_ITS ---
STUDY: CT HEAD STROKE PROTOCOL W/O CONTRAST INJECTION REASON FOR EXAM: Male, 64 years old. Neuro deficit, acute, stroke suspected -- Vertigo, central gaze nystagmus, diplopia RADIATION DOSAGE (If Supplied By Facility): CTDIvol = ( 44.99 ) mGy, DLP = ( 880.47 ) mGycm TECHNIQUE: Transaxial CT imaging of the brain was performed without administration of intravenous contrast material. Individualized dose optimization techniques were used for this CT. COMPARISON: Comparison is made with prior study dated April 24, 2023. FINDINGS: Normal soft tissue structures. Stable small ossified density posterior to the right sphenoid wing. This is an incidental finding. There is mild cerebral atrophy with widening of the extra-axial spaces and ventricular dilatation. Normal white matter tracts of the cerebral hemispheres. Normal basal ganglia and thalami. Normal brainstem. Normal cerebellum. There is no intracranial hemorrhage. There are no findings of an acute ischemic infarction. Empty sella. This is a normal variant. Normal visualized paranasal sinuses. Old healed fracture of the right zygomatic arch with mild depression of the central arch. ASPECT score: 10 CT/STROKE Brain/Head without Cont IMPRESSION: Mild involutional changes of the brain. N.B. : The above Results were Read Back by Rl Pierre MD to Dr Albert MD, and understanding confirmed on 04/15/2024 09:24:19 (ET). Electronically Signed: Rl Pierre MD at 9:25 EDT ,
--- NOTE | 2024-04-15 09:07 | EKG12_ITS ---
Test Reason : NEURO/STROKE TEAM Blood Pressure : / mmHG Vent. Rate : 082 BPM Atrial Rate : 082 BPM P-R Int : 198 ms QRS Dur : 154 ms QT Int : 432 ms P-R-T Axes : 052 -29 010 degrees QTc Int : 504 ms Normal sinus rhythm Right bundle branch block Abnormal ECG Confirmed by Charli Ramirez ([id number]), editorial assistant DIEGO GOSS ([id number]) on 04/20/2024 9:23:08 AM Referred By: Confirmed By:Charli Ramirez
--- NOTE | 2024-04-15 09:08 | CT_ITS ---
STUDY: CTA HEAD AND NECK WITH CONTRAST REASON FOR EXAM: Male, 64 years old. Neuro deficit, acute, stroke suspected RADIATION DOSAGE (If Supplied By Facility): CTDIvol = ( 21.13 ) mGy, DLP = ( 870.67 ) mGycm TECHNIQUE: CT angiography was performed with a multi-detector CT scanner. Data acquisition was obtained from the skull base through the vertex following intravenous administration of IV 100mL Isovue-370. MIP images were reconstructed from the axial data set. Post-processing of the angiographic images was performed, with multiplanar reformation and 3D reconstruction. Individualized dose optimization techniques were used for this CT. COMPARISON: No relevant priors. FINDINGS: Normal bilateral petrous carotid arteries. Normal right cavernous carotid artery with a normal supraclinoid bifurcation. Normal left cavernous carotid artery with a normal supraclinoid bifurcation. Normal right A1 segments of the anterior cerebral artery. Normal left A1 segments of the anterior cerebral artery. Normal intact anterior communicating artery (ACOM). Normal bilateral A2 segments of the anterior cerebral arteries. Normal right M1 and M2 segments of the middle cerebral arteries, with a normal M1 bifurcation. Normal left M1 and M2 segments of the middle cerebral arteries, with a normal M1 bifurcation. Normal right posterior communicating artery (PCOM). Normal left posterior communicating artery (PCOM). Normal bilateral vertebral arteries. Normal basilar artery with a normal basilar bifurcation. The visualized bilateral superior cerebellar (SCA) arteries are normal. Normal bilateral P1, P2 and visualized P3 segments of the posterior cerebral arteries. There is no demonstrated aneurysm of the [place]. AORTIC ARCH: There is mild atherosclerotic calcific plaque formation of the aortic arch and great vessels arising from the aortic arch, without a hemodynamically significant stenosis. There is a normal origin of the brachiocephalic, left common carotid, and left subclavian arteries. RIGHT CAROTID ARTERIES: Normal right common carotid artery (CCA). Normal right common carotid bulb. There is mild atherosclerotic plaque formation of the origin of the right internal carotid artery with less than 50% cross sectional diameter stenosis. Normal visualized cervical portion of the right internal carotid artery. Normal origin of the right external carotid artery (ECA). LEFT CAROTID ARTERIES: Normal left common carotid artery (CCA). Normal left common carotid bulb. Normal origin of the left internal carotid (ICA) artery without a hemodynamically significant stenosis. Normal visualized cervical portion of the left internal carotid artery. Normal origin of the left external carotid artery (ECA). VERTEBRAL ARTERIES: Normal bilateral vertebral arteries. CT/STROKE CTA Head AND Neck W/Con IMPRESSION: Minimal plaque formation at the origin of the right internal carotid artery. N.B. : The above Results were Read Back by Rl Pierre MD to [facility] and understanding confirmed on 04/15/2024 09:36:58 (ET). Electronically Signed: Rl Pierre MD at 9:38 EDT ,
--- NOTE | 2024-04-15 09:14 | ED.VIS.STROK ---
HPI History of Present Illness Chief Complaint: Dizziness Detail of Chief Complaint: Vertigo and diplopia Informant: patient Onset/Context/Timing Onset: Today (499) Context: Sudden Onset Timing: Continuous Quality and Location: Positive for Difficulty with Ambulation and - (Diplopia) Current Severity: Mild Maximum Severity: Moderate (When he attempts to ambulate) Worsened by: Nothing Relieved by: Nothing Associated Symptoms Associated Symptoms: Positive for Nausea; Negative for Headache, Vomiting or Chest Pain Narrative Narrative: Patient is a 64-year-old male. He states when he awoke today he had spinning and lightheadedness. Had lightheadedness for some time. The spinning is new. His states she is having trouble ambulating. Is not walking preferentially to 1 side. He is unsteady when he walks. He denies headache. He does have double vision. Denies blurred vision or loss of vision. Eyes french ears decreased hearing. No trouble speech or swallowing. He denies cardiac respiratory symptoms. He denies urologic symptoms. Only GI symptom is nausea. Patient has history of pulmonary hypertension, essential hypertension, hypercholesterolemia, obstructive sleep apnea and angioedema. Prior similar symptoms: No Recent Illness/Hospitalization: No [facility] Medical History (Updated 04/15/24 @ 09:[address] Hubert Price MD) Acute anaphylaxis Bacterial pneumonia Obesity Irritable bowel syndrome (IBS) Restless legs syndrome (RLS) Palpitations Nonischemic cardiomyopathy Pulmonary hypertension Pure hypercholesterolemia Essential (primary) hypertension Home Medications ?Medication ?Instructions ?Recorded ?Last Taken ?Type tamsulosin 0.4 mg capsule 0.4 mg PO DAILY prostate 90 days 11/06/18 04/15/24 History #90 caps citalopram 20 mg tablet 20 mg PO DAILY anxiety 10/20/19 04/15/24 History hydrochlorothiazide 25 mg tablet 25 mg PO DAILY 12/04/19 Unknown History lansoprazole 15 mg capsule,delayed 30 mg PO DAILY gerd 12/04/19 04/15/24 History release gabapentin 600 mg tablet 1,200 mg PO QHS 09/19/22 04/14/24 History (Neurontin) celecoxib 200 mg capsule 200 mg PO DAILY 12/21/22 04/15/24 History aspirin 81 mg tablet,delayed 81 mg PO DAILY 04/15/24 04/15/24 History release (Adult Aspirin Regimen) carvedilol 6.25 mg tablet 3.125 mg PO BID 04/15/24 04/15/24 History multivitamin (Daily Multi-Vitamin 1 tab PO DAILY 04/15/24 04/15/24 History tablet) Allergy/AdvReac Type Severity Reaction Status Date / Time lisinopril AdvReac Angioedema Verified 04/15/24 09:02 Family History Mother Cancer esophogeal Surgical History History of open reduction and internal fixation (ORIF) procedure Status post right inguinal hernia repair History of carpal tunnel release of both wrists History of cholecystectomy Social History (Updated 04/15/24 @ 09:[address] Hubert Price MD) household members: spouse Smoking Status: Former smoker how long ago did patient quit smokin years ago alcohol intake: former details: not for last few weeks substance use type: does not use caffeine: Yes Type: coffee Number of servings: 2 ROS ROS ED Constitutional Constitutional ED: Denies chills, fever(s), subjective or sweats Eyes Eyes: Reports diplopia; Denies blurry vision or change in vision ENT ENT ED: Denies ear pain, rhinorrhea or sore throat Cardiovascular Cardiovascular: Denies chest pain, palpitations, paroxysmal nocturnal dyspnea or racing heartbeat Respiratory/Chest Respiratory/Chest: Denies cough, dyspnea, dyspnea on exertion or paroxysmal nocturnal dyspnea Gastrointestinal Gastrointestinal: Reports nausea; Denies abdominal pain or vomiting Genitourinary Genitourinary ED: Denies dysuria, hematuria or urinary frequency Musculoskeletal Musculoskeletal: Denies arthralgias, back pain or myalgias Integumentary Denies abscess or rash Neurologic Neurologic: Denies headache(s) or weakness Endocrine Endocrinology: Denies polydipsia, polyphagia or polyuria Hematologic/Lymphatic Hematologic/Lymphatic: Denies easy bleeding or easy bruising EXAM Physical Exam Const Vital Signs: 04/15/24 09:02 04/15/24 09:07 04/15/24 09:29 Temperature 96.6 F L Temperature Source Temporal Pulse Rate 68 80 Respiratory Rate 18 13 Blood Pressure 143/77 H 145/80 H Blood Pressure Mean 99 101 Pulse Ox 94 98 Oxygen Delivery Method Room Air Room Air Room Air Positive well nourished and well developed General Appearance ED: well developed and NAD HEENT Reports moist mucous membranes atraumatic Nose: other Other Details: Nares patent. Posterior pharynx is normal. No deviation with protrusion. Eyes PERRL and EOMs intact bilaterally Eyes Narrative: Patient has central gaze diplopia. There is no visual field cut. General Eye ED: Negative for pale conjunctiva or scleral icterus Neck no lymphadenopathy, supple and no JVD Neck Narrative: There is no carotid bruits noted on the right or left. Chest Wall inspection of chest normal and palpation of chest normal Resp normal respiratory effort and clear to auscultation bilaterally Cardio no murmurs Rate: regular rate Rhythm: regular rhythm Heart Sounds: S1 normal and S2 normal GI normal to inspection, nondistended, normoactive bowel sounds, soft to palpation, non-tender, non-distended and no masses Extremity normal to inspection General Extremety ED: Negative for deformity, edema or tenderness General Extremity: Negative for deformity or edema Neuro oriented x3, CN's II-XII intact bilaterally and no sensory deficits noted [place] Coma Scale: document GCS findings Spontaneous Obeys Commands Oriented 15 Sensorium / Orientation: alert Speech: speech normal Gait (Neuro): Negative for normal gait Psych mental status grossly normal Skin no wounds General Skin Exam: Negative for jaundice Lesions: no lesions Rashes: no rashes NIHSS NIHSS Initial: 1a Level of Consciousness: 0 1b LOC Questions (Score 2 if aphasic/stupor): 0 1c LOC Commands (Only score 1st attempt): 0 2 Best Gaze (If aphasic, use reflexive mvmts.): 0 3 Visual: 0 4 Facial Palsy: 0 5 Motor Arm Right (UN = amputation/fusion): 0 5 Motor Arm Left: 0 6 Motor Leg Right: 0 6 Motor Leg Left: 0 7 Limb ataxia (Only + if out of proportion): 0 8 Sensory (Aphasia/stupor=0 or 1, coma=2): 0 9 Best Language: 0 10 Dysarthria (mute, coma=2, intubated=UN): 0 11 Extinction and Inattention (only scored if +): 0 Total Score: 0 MDM MDM MDM Narrative Medical decision making narrative: Patient presents with 2 complaints lightheadedness which has been intermittent for some time. He also reports double vision trouble walking was first noted upon awakening at 0500. Need to clarify if patient awoke with it or this occurred shortly after he awoke. Patient has no other complaints. Patient has no prior history of stroke. Review of Cardiac records indicates patient has a history of nonischemic cardiomyopathy. This will increase likelihood for possible embolic phenomena since he is not on anticoagulant. Patient states he was awakened at 3:00 in the morning with no symptoms. He awoke with symptoms at 5:00 in the morning. History & Record Review Additional record(s) reviewed:: Prior outpatient record (Patient had a stress echo performed June 27, 2023. Was normal and had preserved ejection fraction of 57%. This was interpreted by Dr. Galarza. Patient had a Holter monitor which revealed no significant ectopy or dysrhythmia.), Prior ED visit (September 2022 for hypertension. Also seen October 2019 for angioedema.) and Prior labs Lab Data Attestation: I reviewed the patient's lab results. Labs: Laboratory Results - last 24 hr 04/15/24 04/15/24 09:13 09:15 WBC 14.6 H RBC 5.24 Hgb 16.0 Hct 46.9 MCV 89.5 MCH 30.5 MCHC 34.1 RDW Std Deviation 43.9 RDW Coeff of Jaquan 13.5 Plt Count 265 MPV 9.9 Immature Gran % (Auto) 0.800 Neut % (Auto) 85.8 H Lymph % (Auto) 7.9 L Chaves % (Auto) 4.5 Eos % (Auto) 0.2 Baso % (Auto) 0.8 Absolute Neuts (auto) 12.5 H Absolute Lymphs (auto) 1.15 Nucleated RBC % 0 PT 14.2 INR 1.1 APTT 28.4 Sodium 136 Potassium 3.2 L Chloride 103 Carbon Dioxide 29.0 Anion Gap 4 L BUN 16 Creatinine 0.93 Estim Creat Clear Calc 101.10 Est GFR (MDRD) Af Amer 105 Est GFR (MDRD) Non-Af 87 BUN/Creatinine Ratio 17.3 Glucose 158 H Calcium 9.4 Troponin I High Sens 9 POC Glucose 170 H Glucose is elevated 158 with normal CO2 anion gap. Renal function is normal. White count is elevated. Patient's had elevated white count on prior CBCs. Basic metabolic panel is remarked for mild hypokalemia. This would not explain his symptoms. Radiography Chest X-Ray - ED: 1 View and Read by ED Physician (There are no acute findings. There is evidence of cardiomegaly. Cardiac silhouette is unremarkable. Lung parenchyma reveals mild chronic changes. Osseous trucks unremarkable. Perihilar regions unremarkable. This independent reviewed interpreted by me at 1000) Diagnostic Testing: Clinical Impression(s) from Imaging Studies Brain CT 04/15/24 09:07 IMPRESSION: Mild involutional changes of the brain. N.B. : The above Results were Read Back by Rl Pierre MD to Dr Albert MD, and understanding confirmed on 04/15/2024 09:24:19 (ET). Electronically Signed: Rl Pierre MD at 9:25 EDT , ADDENDUM: 04/15/24 0932 IMPRESSION: Mild involutional changes of the brain. N.B. : The above Results were Read Back by Rl Pierre MD to Dr Albert MD, and understanding confirmed on 04/15/2024 09:24:19 (ET). Electronically Signed: Rl Pierre MD at 9:25 EDT , Head/Neck CTA 04/15/24 09:08 IMPRESSION: Minimal plaque formation at the origin of the right internal carotid artery. N.B. : The above Results were Read Back by Rl Pierre MD to Hubert Price and understanding confirmed on 04/15/2024 09:36:58 (ET). Electronically Signed: Rl Pierre MD at 9:38 EDT , ADDENDUM: 04/15/24 0945 IMPRESSION: Minimal plaque formation at the origin of the right internal carotid artery. N.B. : The above Results were Read Back by Rl Peirre MD to Hubert Price and understanding confirmed on 04/15/2024 09:36:58 (ET). Electronically Signed: Rl Pierre MD at 9:38 EDT , Rhythm Strip Rhythm Strip: Sinus Rhythm Rate: 74 Ectopy: None EKG Initial EKG: Attestation: I personally reviewed and interpreted this EKG as follows: Interpretation: Sinus Rhythm (Rate is 82. There is evidence of right bundle branch block. SD interval 198 ms. Cures duration 154 ms. QT duration 432 ms. Brandon is normal) Prior: Changed (Right bundle branch block is new since March 05, 2014. The right bundle branch block was not noted on stress test performed June 2023) Management Discussion w/another healthcare provider: Aged Or Disabled Care Worker (Spoke with Dr. Fraire the [facility] stroke neurologist. Plan is admission locally.) and Radiologist (I received a call at 0923 that the scan did not reveal any acute findings.) Stroke Documentation Questions Stroke Team Activated: Yes Reviewed Inclusion/Exclusion criteria: Yes IV Thrombolytic Administered: No (Outside of window) No contraindications from thrombolytic administration: Yes Risks, Benefits, Alternatives Discussed: No (After patient returned from scanner it was determined he was last known wel) Discharge Plan Dx/Rx/DC Orders Clinical Impression: Diplopia, Essential (primary) hypertension, Pure hypercholesterolemia, Unsteady gait, Right bundle branch block (RBBB) determined by electrocardiography, Acute hypokalemia Disposition Disposition: Acute Care Hospital [facility]
[2024-04-15 09:23] LABS: Absolute Lymphocyte Count 1.15 X10^3/uL (0.83-4.51); Absolute Neutrophil Count 12.5 X10^3/uL (2.0-7.7); Basophil# 0.11 X10^3/uL; Basophil% 0.8 % (0-1); Eosinophil# 0.03 X10^3/uL; Eosinophils% 0.2 % (0-5); Hematocrit 46.9 % (40-54); Lymphocyte # 1.15 X10^3/ul (0.83-4.51); Lymphocyte % 7.9 % (19-41); Mean Corp Hgb Conc 34.1 g/dL (32-36); Mean Corpuscular Hgb 30.5 pg (27.0-32.0); Mean Corpuscular Volume 89.5 fL (80-94); Mean Platelet Vol. 9.9 fl (6.2-12.0); Monocyte# 0.66 X10^3/uL; Monocyte% 4.5 % (0-10); NRBC Flagged by Analyzer 0 % (0-5); Neutrophil % 85.8 % (47-70); Platelet Count 265 K/mm3 (150-450); RBC Distribution Width CV 13.5 % (11.6-14.6); RBC Distribution Width SD 43.9 fl (35.1-43.9); Red Blood Count 5.24 M/mm3 (4.6-6.2); White Blood Count 14.6 K/mm3 (4.4-11.0)
[2024-04-15 09:39] LABS: Bedside Glucose 170 mg/dL (74-106)
[2024-04-15 09:41] LABS: Anion Gap 4 (5-15); BUN 16 mg/dL (7-18); BUN/Creat Ratio 17.3 RATIO (10-20); Calcium,Total 9.4 mg/dL (8.5-10.1); Chloride 103 mmol/L (98-107); Creatinine, Serum 0.93 mg/dL (0.70-1.30); EST Glomerular Filtration Rate 87 mL/min (>60); Est Glom Filt Rate - Afr Amer 105 mL/min (>60); Glucose 158 mg/dL (74-106); Potassium 3.2 mmol/L (3.5-5.1); Sodium Level 136 mmol/L (136-145); Troponin-I HS 9 pg/mL (3.0-78.0)
--- NOTE | 2024-04-15 09:42 | NURSING ---
[id number] [facility] tele stroke called and with another telestroke and will zoom in pt in bed with at bedside. nih scale 0
--- NOTE | 2024-04-15 09:45 | NURSING ---
some nystagmus when looks to rt. pt reports objects moving and hard to focus on far away things
--- NOTE | 2024-04-15 09:48 | HP.PCM_ITS ---
HPI - General General Date of Admission: 04/15/24 Date of Service: 04/15/24 Chief Complaint: dizziness HPI Narrative FELIX GOTTLIEB, is a 64 M with a PMh as outlined who presents via the ED on 04/15/2024 with a complaint of dizziness and lightheadedness. He woke up with these symptoms and felt like eveyrthing was spinning around him. This was new for him and he was also having trouble ambulating. He denied any headache but admitted to double vision, which was also new for him. He denied any cough, chest pain, palpitations, dizziness, nausea, vomiting or any other symptoms. Review of systems is otherwise negative. Vitals in the ED were BP of 145/80, FL of 80, RR of 13 and oxygen sats of 98% on room air. CBC showed hb of 16, wbc of 14.6, platelets of 265 and INR of 1.1. Chemistry showed sodium of 136, potassium of 3.2 and Cr of 0.93. Initial troponin was negative. CT of the brain showed no acute intracranial pathology, with no evidence of a stroke. CTA head and neck showed no evidence of hemodynamically significant stenosis, and showed a mild atherosclerotic plaque formation of hte origin of hte right internal carotid artery with less than 50% stenosis. He is being admitted to be managed for dizziness and vertigo to rule out a posterior stroke. [facility] Medical History (Updated 04/15/24 @ 18:[address] Pearl Del Rio MD) Acute anaphylaxis Bacterial pneumonia Obesity Irritable bowel syndrome (IBS) Restless legs syndrome (RLS) Palpitations Nonischemic cardiomyopathy Pulmonary hypertension Pure hypercholesterolemia Essential (primary) hypertension Home Medications ?Medication ?Instructions ?Recorded ?Last Taken ?Type tamsulosin 0.4 mg capsule 0.4 mg PO DAILY prostate 90 days 11/06/18 04/15/24 History #90 caps citalopram 20 mg tablet 20 mg PO DAILY anxiety 10/20/19 04/15/24 History hydrochlorothiazide 25 mg tablet 25 mg PO DAILY 12/04/19 Unknown History lansoprazole 15 mg capsule,delayed 30 mg PO DAILY gerd 12/04/19 04/15/24 History release gabapentin 600 mg tablet 1,200 mg PO QHS 09/19/22 04/14/24 History (Neurontin) celecoxib 200 mg capsule 200 mg PO DAILY 12/21/22 04/15/24 History aspirin 81 mg tablet,delayed 81 mg PO DAILY 04/15/24 04/15/24 History release (Adult Aspirin Regimen) carvedilol 6.25 mg tablet 3.125 mg PO BID 04/15/24 04/15/24 History multivitamin (Daily Multi-Vitamin 1 tab PO DAILY 04/15/24 04/15/24 History tablet) Allergy/AdvReac Type Severity Reaction Status Date / Time lisinopril AdvReac Angioedema Verified 04/15/24 09:02 Family History Mother Cancer esophogeal Surgical History History of open reduction and internal fixation (ORIF) procedure Status post right inguinal hernia repair History of carpal tunnel release of both wrists History of cholecystectomy Social History (Updated 04/15/24 @ 09:[address] Hubert Price MD) household members: spouse Smoking Status: Former smoker how long ago did patient quit smokin years ago alcohol intake: former details: not for last few weeks substance use type: does not use caffeine: Yes Type: coffee Number of servings: 2 ROS Review of Systems ROS Unobtainable: Denies due to encephalopathy Constitutional Constitutional: Reports malaise and weakness; Denies anorexia, change in weight, chills, fatigue or fever(s) Eyes Eyes: Reports change in vision and double vision ENT HEENT: Denies dysphagia, headache(s), hearing loss, sore throat or throat swelling Cardiovascular Cardiovascular: Denies chest pain, edema, orthopnea, palpitations, paroxysmal nocturnal dyspnea or syncope Respiratory/Chest Respiratory/Chest: Denies cough or shortness of breath with exertion Gastrointestinal Gastrointestinal: Denies abdominal pain, constipation, diarrhea, nausea or vomiting Genitourinary Genitourinary: Denies dysuria or urinary frequency Musculoskeletal Musculoskeletal: Denies back pain or muscle weakness Neurologic Neurologic: Reports dizziness; Denies abnormal gait, confusion, focal weakness, headache(s), lack of coordination, numbness or seizures Psychiatric Psychiatric: Denies anxiety or depression Vital Signs Vital Signs Vital Signs: 04/15/24 09:02 04/15/24 09:07 04/15/24 09:29 Temperature 96.6 F L Temperature Source Temporal Pulse Rate 68 80 Respiratory Rate 18 13 Blood Pressure 143/77 H 145/80 H Blood Pressure Mean 99 101 Pulse Ox 94 98 Oxygen Delivery Method Room Air Room Air Room Air Weight Weight: 278 lb 14.156 oz Body Mass Index (BMI) 43.7 Physical Exam Const alert, oriented x3, no apparent distress and well nourished General Appearance: cooperative HEENT normocephalic, head/scalp atraumatic, moist oral mucous membranes and oropharynx normal Eyes PERRL and EOMs intact bilaterally Neck no lymphadenopathy, supple and no JVD Lymph Lymphatic: no lymphadenopathy noted and no lymphedema noted Resp normal respiratory effort, normal air movement and clear to auscultation bilaterally Cardio regular rate, regular rhythm, S1 normal heart sound, S2 normal heart sound and no murmurs GI normal to inspection, nondistended, normoactive bowel sounds, soft to palpation and non-tender Extremity normal capillary refill, no clubbing, cyanosis or edema and no calf tenderness General Extremity: no tenderness to palpation of joints or extremities Skin General Skin Exam: no breakdown Neuro CN's II-XII intact bilaterally, no focal motor deficits and no sensory deficits noted Motor Exam: strength 5/5 throughout and general weakness Psych thought process normal, cooperative and affect normal Appearance: appropriate Results Lab / Micro Data 04/15/24 09:15 04/15/24 09:15 Labs: Laboratory Results - last 24 hr 04/15/24 09:13: POC Glucose 170 H 04/15/24 09:15: WBC 14.6 H, RBC 5.24, Hgb 16.0, Hct 46.9, MCV 89.5, MCH 30.5, MCHC 34.1, RDW Std Deviation 43.9, RDW Coeff of Jaquan 13.5, Plt Count 265, MPV 9.9, Immature Gran % (Auto) 0.800, Neut % (Auto) 85.8 H, Lymph % (Auto) 7.9 L, [place] % (Auto) 4.5, Eos % (Auto) 0.2, Baso % (Auto) 0.8, Absolute Neuts (auto) 12.5 H, Absolute Lymphs (auto) 1.15, Nucleated RBC % 0, Sodium 136, Potassium 3.2 L, Chloride 103, Carbon Dioxide 29.0, Anion Gap 4 L, BUN 16, Creatinine 0.93, Estim Creat Clear Calc 101.10, Est GFR (MDRD) Af Amer 105, Est GFR (MDRD) Non-Af 87, BUN/Creatinine Ratio 17.3, Glucose 158 H, Calcium 9.4, Troponin I High Sens 9 Rhythm Strip Rhythm Strip: Sinus Rhythm Rate: 74 Ectopy: None Imaging Radiology Impression Brain CT 04/15/24 09:07 IMPRESSION: Mild involutional changes of the brain. N.B. : The above Results were Read Back by Rl Pierre MD to Dr Albert MD, and understanding confirmed on 04/15/2024 09:24:19 (ET). Electronically Signed: Rl Pierre MD at 9:25 EDT , ADDENDUM: 04/15/24 0932 IMPRESSION: Mild involutional changes of the brain. N.B. : The above Results were Read Back by Rl Pierre MD to Dr Albert MD, and understanding confirmed on 04/15/2024 09:24:19 (ET). Electronically Signed: Rl Pierre MD at 9:25 EDT , Head/Neck CTA 04/15/24 09:08 IMPRESSION: Minimal plaque formation at the origin of the right internal carotid artery. N.B. : The above Results were Read Back by Rl Pierre MD to Hubert Price and understanding confirmed on 04/15/2024 09:36:58 (ET). Electronically Signed: Rl Pierre MD at 9:38 EDT , ADDENDUM: 04/15/24 0945 IMPRESSION: Minimal plaque formation at the origin of the right internal carotid artery. N.B. : The above Results were Read Back by Rl Pierre MD to Hubert Price and understanding confirmed on 04/15/2024 09:36:58 (ET). Electronically Signed: Rl Pierre MD at 9:38 EDT , Assessment & Plan Assessment/Plan (1) Diplopia: (2) Dizziness: PLAN: Plan #Dizziness and diplopia to rule out a stroke * Admit to PCU. CT of the brain was negative for any evidence of a stroke. * Will admit to PCU to rule out a stroke. Will order MRI of the brain and 2D echo. * CT of the head and neck showed no acute intracranial pathology. * Consult neurology.. Aspirin 81 mg daily. * PT OT consult. Fall precautions. * Check A1c and lipid panel * #Hypertension: Hold carvedilol and other BP meds allow for permissive hypertension in the case of a stroke. #BPH: On Flomax #ESTHER: on CPAP qhs #History of nonischemic cardiomyopathy: on aspirin, carvedilol and statin. carvedilol held on admission #Depression: On citalopram DVT prophylaxis: Lovenox CODE STATUS: Full code * Patient counseled extensively about different types of CODE STATUS including full code, DNR CCA and DNR CCA. * Patient elects to be full code. * Total urnn-ot-fhoa time 16 minutes. Charges/Coding Visit Charges Inpatient E&M: 60881 Init Hosp L2 Procedures Hospitalists Procedures: 65721 Advncd Care Plan 30 Min
[2024-04-15 09:49] LABS: International Normalized Ratio 1.1; Partial Thromboplast Time 28.4 Seconds (24.1-36.2); Prothrombin Time (Protime)PT. 14.2 SECONDS (11.7-14.9)
--- NOTE | 2024-04-15 09:50 | RAD_ITS ---
INDICATION: Neuro deficit, acute, stroke suspected EXAMINATION/TECHNIQUE: X-RAY - XR Chest 1 View COMPARISON: No relevant prior comparison study available FINDINGS: LINES/DEVICES: None. LUNGS: Right pericardial opacity likely due to pericardial fat pad. No focal infiltrate is seen. No evidence of pleural effusions. MEDIASTINUM AND CARDIOVASCULAR STRUCTURES: Cardiac silhouette not enlarged. Central airways and mediastinal contour are unremarkable. BONES AND SOFT TISSUES: Unremarkable. RAD/Chest 1 View IMPRESSION: No radiographic evidence of acute cardiopulmonary disease. Electronically Signed: Diogenes Juarez MD at 9:59 EDT ,
[2024-04-15] MEDS: Ondansetron 4 MG/2 ML Vial IV (12:44)
--- NOTE | 2024-04-15 14:07 | MRI_ITS ---
HISTORY: stroke like symptoms. TECHNIQUE: Multiplanar and multisequence MR images of the brain were obtained without contrast. 303 images. COMPARISON: CT same day. FINDINGS: BRAIN PARENCHYMA: Mild foci of increased T2 FLAIR signal in the bilateral cerebral white matter. No abnormal focus of restricted diffusion. No acute intracranial hemorrhage identified. CSF SPACES: Mild volume loss with a partially empty sella configuration. No significant midline shift or other mass effect.No extra-axial fluid collection. VASCULAR SYSTEM: Major intracranial flow voids are maintained. PARANASAL SINUSES AND MASTOID AIR CELLS: No significant air fluid levels. ORBITS: Symmetric contents. MRI/Brain without Contrast IMPRESSION: No evidence for acute infarct. Mild chronic involutional and white matter changes. Electronically Signed: Carline Patel MD at 15:10 EDT ,
--- NOTE | 2024-04-15 16:05 | ECHOD_ITS ---
Reason For Study: TIA/CVA Procedure This was a 2D Doppler, Color Flow transthoracic echocardiogram. Exam performed portable in patient room. Left Ventricle Normal LV size. The estimated ejection fraction is 60 %. No evidence for diastolic dysfunction. No regional wall motion abnormalities noted. Right Ventricle Normal RV size. Normal systolic function. Atria Normal left atrium. Normal right atrium. No doppler evidence for ASD. Bubble contrast study negative for right to left interatrial shunt. Mitral Valve There is no mitral valve stenosis. No mitral valve insufficiency. Tricuspid Valve There is no tricuspid stenosis. Trivial tricuspid valve insufficiency. Pulmonary artery systolic pressure is 35 mmHg. Aortic Valve Trisinus/trileaflet aortic valve. There is no aortic stenosis. No aortic valve insufficiency. Pulmonic Valve There is no pulmonic valvular stenosis. Trivial pulmonic valve insufficiency. Great Vessels Normal aortic root. Pericardium/Pleural No pericardial effusion. Medication Performed a rapid injection of agitated mix of 9 cc saline and 1cc air to assess for atrial septal defect. MMode/2D Measurements & Calculations LVIDd: 5.0 cm IVSd: 1.2 cm Ao root diam: 3.4 cm LVIDs: 3.8 cm LVPWd: 1.2 cm RVDd: 3.8 cm FS: 22.9 % LAV(MOD-bp): 49.1 ml LVAd ap4: 33.2 cm2 LVAd ap2: 30.5 cm2 LAV(MOD-bp) Indexed: 21.1 ml/m2 LVLd ap4: 8.4 cm LVLd ap2: 8.3 cm LAV(MOD-sp2): 46.2 ml EDV(MOD-sp4): 106.4 ml EDV(MOD-sp2): 92.0 ml LAV(MOD-sp4): 48.5 ml EDV(sp4-el): 111.8 ml EDV(sp2-el): 94.9 ml LVAs ap4: 19.1 cm2 LVAs ap2: 17.0 cm2 LVLs ap4: 7.3 cm LVLs ap2: 6.9 cm ESV(MOD-sp4): 42.4 ml ESV(MOD-sp2): 36.4 ml ESV(sp4-el): 42.4 ml ESV(sp2-el): 35.7 ml EF(MOD-sp4): 60.1 % EF(MOD-sp2): 60.4 % EF(sp4-el): 62.1 % SV(MOD-sp4): 64.0 ml SV(MOD-sp2): 55.5 ml SV(sp4-el): 69.4 ml LA A4 area: 15.9 cm2 LA dimension(2D): 4.1 cm RA A4 area: 13.4 cm2 TAPSE: 2.2 cm Time Measurements MV dec time: 0.26 sec Doppler Measurements & Calculations MV E max garret: 75.1 cm/sec Lat Peak E' Garret: 12.5 cm/sec Med Peak E' Garret: 8.6 cm/sec MV A max garret: 73.1 cm/sec E/E' lat: 6.0 E/E' med: 8.8 MV E/A: 1.0 MV V2 max: 87.1 cm/sec MV P1/2t max garret: 85.4 cm/sec Ao V2 max: 128.9 cm/sec MV max P.0 mmHg MV P1/2t: 82.2 msec Ao max P.6 mmHg MV V2 mean: 57.3 cm/sec Ao V2 mean: 88.9 cm/sec MV mean P.4 mmHg MV dec slope: 304.4 cm/sec2 Ao mean P.5 mmHg MV V2 VTI: 28.9 cm MVA(P1/2t): 2.7 cm2 Ao V2 VTI: 27.0 cm AV (velocity ratio): 0.72 LV V1 max: 87.7 cm/sec PA V2 max: 119.9 cm/sec TR max garret: 276.6 cm/sec LV V1 max P.1 mmHg PA V2 mean: 74.7 cm/sec TR max P.6 mmHg LV V1 mean P.8 mmHg LV V1 mean: 63.7 cm/sec LV V1 VTI: 19.6 cm ECHO/Echo Complete Interpretation Summary The estimated ejection fraction is 60 %. No evidence for diastolic dysfunction. Ordering Physician: Pearl Del Rio Referring Physician: Rosa Acosta Performed By: Lotus Norris, LEYLA, RVT
[2024-04-15] MEDS: 0.9% Normal Saline (1000mL) 1,000 ML 125 ML IV (16:41)
[2024-04-15] MEDS: Enoxaparin 40 MG/0.4 ML Syringe SC (16:41)
[2024-04-15] MEDS: Potassium Chloride Oral Tablet 20 MEQ 40 MEQ PO (18:32)
[2024-04-15] MEDS: Gabapentin 600 MG Tablet 1200 MG PO (20:32)
[2024-04-16] MEDS: 0.9% Normal Saline (1000mL) 1,000 ML 125 ML IV (00:53)
[2024-04-16 02:15] VITALS: BP 124/68; PULSE 65; RESP 14; TEMP 36.4; O2SAT 97
[2024-04-16 06:45] LABS: Absolute Neutrophil Count 7.3 X10^3/uL (2.0-7.7); Basophil# 0.08 X10^3/uL; Basophil% 0.7 % (0-1); Eosinophil# 0.15 X10^3/uL; Eosinophils% 1.4 % (0-5); Hematocrit 41.6 % (40-54); Lymphocyte % 22.6 % (19-41); Mean Corp Hgb Conc 33.7 g/dL (32-36); Mean Corpuscular Hgb 30.7 pg (27.0-32.0); Mean Corpuscular Volume 91.2 fL (80-94); Monocyte# 1.03 X10^3/uL; Monocyte% 9.3 % (0-10); NRBC Flagged by Analyzer 0 % (0-5); Neutrophil # 7.26 X10^3/uL (2.7-7.7); Neutrophil % 65.5 % (47-70); Platelet Count 247 K/mm3 (150-450); RBC Distribution Width CV 13.5 % (11.6-14.6); RBC Distribution Width SD 45.5 fl (35.1-43.9); Red Blood Count 4.56 M/mm3 (4.6-6.2); White Blood Count 11.1 K/mm3 (4.4-11.0)
[2024-04-16 07:20] LABS: Anion Gap 3 (5-15); BUN 11 mg/dL (7-18); BUN/Creat Ratio 14.1 RATIO (10-20); Chloride 107 mmol/L (98-107); Cholesterol 157 mg/dL (200); Creatinine, Serum 0.78 mg/dL (0.70-1.30); EST Glomerular Filtration Rate 106 mL/min (>60); Est Glom Filt Rate - Afr Amer 128 mL/min (>60); Estimated Creatinine Clearance 101.69 ml/min; Glucose 104 mg/dL (74-106); High Density Lipoprotein 34 mg/dL; Potassium 3.5 mmol/L (3.5-5.1); Sodium Level 140 mmol/L (136-145); Triglycerides 147 mg/dL; Very Low Density Lipoprotein 29 mg/dL (5-40)
[2024-04-16 08:15] VITALS: BP 133/79; PULSE 64; RESP 18; TEMP 36.6; O2SAT 97
[2024-04-16 08:51] VITALS: BMI 33.1
[2024-04-16] MEDS: Pantoprazole Sodium 40 MG Tablet PO (09:22)
[2024-04-16] MEDS: Multivitamins,Therapeutic Tablet 1 TABLET PO (09:22)
[2024-04-16] MEDS: Citalopram 20 MG Tablet PO (09:23)
[2024-04-16] MEDS: Enoxaparin 40 MG/0.4 ML Syringe SC (09:23)
[2024-04-16] MEDS: Aspirin E.C. 81 MG Tablet PO (09:23)
[2024-04-16] MEDS: Tamsulosin HCl 0.4 MG Capsule PO (09:23)
--- NOTE | 2024-04-16 09:44 | NEURO.CONS ---
Assessment and Plan: Neuro Assessment/Plan FELIX GOTTLIEB Jr. is a 64 M with a past medical history of non-ischemic cardiomyopathy, pulmonary hypertension, hypertension, hypercholesterolemia who presented to [place] ED on 04/15/2024 for ?spinning and lightheadedness. His symptoms have improved. No nystagmus was appreciated on my examination today, however clinical symptoms are most consistent with a diagnosis of BPPV. This is further supported by a prior history of BPPV. MRI brain without acute stroke. Diagnosis: BPPV Plan: 1. Recommend vestibular physical therapy 2. No further work-up required. This was not a TIA event I personally attended this patient and spent a total time of 40 minutes evaluating this patient including clinical assessment, review of chart, medical history imaging, and determining appropriate treatment and workup. HPI Consult Data Date of Consult: 04/16/24 HPI Narrative HPI Narrative: This is a 64-year-old gentleman with a past medical history of non-ischemic cardiomyopathy, pulmonary hypertension, hypertension, hypercholesterolemia who presented to [place] ED on 04/15/2024 for ?spinning and lightheadedness, diplopia?. He reports that yesterday at 515 in the morning he developed rather sudden onset dizziness, described as if objects were moving left to right. He was unable to focus his eyes on an object. Laying down with eyes closed helped the sensation. Moving his head fast worsened the sensation. He also had associated nausea, mild headache, bilateral arm tingling, and cold sweats. On arrival to the ED he was afebrile, HR 68, BP 140s/70-80s. Labs showed mildly elevated WBC count (14.6) with left shift, normal BUN (16)/creatinine (0.93), normal sodium. On arrival to the ED, he underwent CTH which was non-acute. CTA brain and neck with minimal atherosclerosis involving the right internal carotid artery. He reports that today his dizziness sensation has improved. He no longer experiences entire room spinning, but does still have a sensation as if an object is moving left to right when focusing. He is not longer experiencing nausea or other symptoms he had yesterday Of note, he has had similar sensation in the past, diagnosed with BPPV [facility] Medical History (Updated 04/15/24 @ 18:[address] Pearl Del Rio MD) Acute anaphylaxis Bacterial pneumonia Obesity Irritable bowel syndrome (IBS) Restless legs syndrome (RLS) Palpitations Nonischemic cardiomyopathy Pulmonary hypertension Pure hypercholesterolemia Essential (primary) hypertension Home Medications ?Medication ?Instructions ?Recorded ?Last Taken ?Type tamsulosin 0.4 mg capsule 0.4 mg PO DAILY prostate 90 days 11/06/18 04/15/24 History #90 caps citalopram 20 mg tablet 20 mg PO DAILY anxiety 10/20/19 04/15/24 History hydrochlorothiazide 25 mg tablet 25 mg PO DAILY 12/04/19 Unknown History lansoprazole 15 mg capsule,delayed 30 mg PO DAILY gerd 12/04/19 04/15/24 History release gabapentin 600 mg tablet 1,200 mg PO QHS 09/19/22 04/14/24 History (Neurontin) celecoxib 200 mg capsule 200 mg PO DAILY 12/21/22 04/15/24 History aspirin 81 mg tablet,delayed 81 mg PO DAILY 04/15/24 04/15/24 History release (Adult Aspirin Regimen) carvedilol 6.25 mg tablet 3.125 mg PO BID 04/15/24 04/15/24 History multivitamin (Daily Multi-Vitamin 1 tab PO DAILY 04/15/24 04/15/24 History tablet) Allergy/AdvReac Type Severity Reaction Status Date / Time lisinopril AdvReac Angioedema Verified 04/15/24 09:02 Family History Mother Cancer esophogeal Surgical History History of open reduction and internal fixation (ORIF) procedure Status post right inguinal hernia repair History of carpal tunnel release of both wrists History of cholecystectomy Social History (Updated 04/15/24 @ 09:[address] Hubert Price MD) household members: spouse Smoking Status: Former smoker how long ago did patient quit smokin years ago alcohol intake: former details: not for last few weeks substance use type: does not use caffeine: Yes Type: coffee Number of servings: 2 Vital Signs Vital Signs Vital Signs: 04/15/24 10:07 04/15/24 11:00 04/15/24 11:30 Temperature 98.2 F 98.2 F Temperature Source Oral Oral Pulse Rate 80 69 65 Pulse Strength Respiratory Rate 16 16 16 Respiratory Effort Respiratory Depth Respiratory Pattern Blood Pressure 134/82 H 122/78 H 135/87 H Blood Pressure Mean 99 92 103 Blood Pressure Source Blood Pressure Position Blood Pressure Location Pulse Ox 96 96 95 Oxygen Delivery Method Room Air Room Air Room Air 04/15/24 12:00 04/15/24 13:10 04/15/24 14:00 Temperature Temperature Source Pulse Rate 62 62 59 L Pulse Strength Respiratory Rate 13 16 16 Respiratory Effort Respiratory Depth Respiratory Pattern Blood Pressure 132/77 H 137/86 H 152/81 H Blood Pressure Mean 95 103 104 Blood Pressure Source Blood Pressure Position Blood Pressure Location Pulse Ox 95 93 96 Oxygen Delivery Method Room Air Room Air 04/15/24 15:00 04/15/24 16:15 04/15/24 16:15 Temperature 97.6 F L Temperature Source Oral Pulse Rate 72 65 Pulse Strength Respiratory Rate 16 16 Respiratory Effort Respiratory Depth Respiratory Pattern Blood Pressure 132/99 H 154/80 H Blood Pressure Mean 110 104 Blood Pressure Source Monitor Blood Pressure Position Semi-Fowlers Blood Pressure Location Left Forearm Pulse Ox 97 97 Oxygen Delivery Method Room Air Room Air Room Air 04/15/24 16:28 04/15/24 20:15 04/15/24 20:29 Temperature 97.1 F L Temperature Source Oral Pulse Rate 67 Pulse Strength Normal (2+) Respiratory Rate 16 Respiratory Effort Respiratory Depth Respiratory Pattern Blood Pressure 126/71 H Blood Pressure Mean 89 Blood Pressure Source Monitor Blood Pressure Position Semi-Fowlers Blood Pressure Location Left Forearm Pulse Ox 96 98 Oxygen Delivery Method Room Air Room Air 04/15/24 22:00 04/16/24 02:15 04/16/24 03:00 Temperature 97.6 F L Temperature Source Temporal Pulse Rate 65 Pulse Strength Respiratory Rate 14 Respiratory Effort Normal Non-Labored Normal Non-Labored Respiratory Depth Respiratory Pattern Blood Pressure 124/68 H Blood Pressure Mean 86 Blood Pressure Source Monitor Blood Pressure Position Semi-Fowlers Blood Pressure Location Left Forearm Pulse Ox 97 Oxygen Delivery Method Room Air Room Air Room Air 04/16/24 08:15 04/16/24 08:51 04/16/24 08:51 Temperature 97.8 F Temperature Source Temporal Pulse Rate 64 Pulse Strength Normal (2+) Respiratory Rate 18 Respiratory Effort Normal Non-Labored Respiratory Depth Normal Respiratory Pattern Normal Blood Pressure 133/79 H Blood Pressure Mean 97 Blood Pressure Source Monitor Blood Pressure Position Semi-Fowlers Blood Pressure Location Left Forearm Pulse Ox 97 Oxygen Delivery Method Room Air Room Air Weight Weight: 96.1 kg Body Mass Index (BMI) 33.1 EEG Results Procedure Details EEG Procedure Details: FELIX GOTTLIEB Jr. is a 64 year old M with a past medical history of , who presents for evaluation of Electroencephalogram on DATE at TIME NIHSS NIHSS Nursing Documentation NIHSS Nursing Documentation: NIHSS: Ischemic Stroke/TIA Start: 04/15/24 16:05 Text: For PCU Patients: NIH and Neuro Check every 4 Status: Complete hours, PRN and with change in RN caregiver. Freq: [id number] Protocol: Activity Type Activity Date Activity User E-sign Co-sign Detail Recorded Client Recorded Date Recorded By Document 04/15/24 16:15 [facility] 04/15/24 16:16 [facility] 04/15/24 16:15 NIH Stroke Scale [NIHSS] A score of 0 is normal or asymptomatic . Total possible score is 42. Inpatient: RN or Physician to activate a stroke alert for onset of new stroke symptoms or with NIHSS increase >/= 3 points. Following change in neurological status, NIHSS will be performed per physician order or more frequently PRN. -1a. Level of Consciousness Alert; keenly responsive -1b. LOC Questions Answers BOTH questions correctly. -1c. LOC Commands Performs both tasks correctly . -2. Best Gaze Normal -3. Visual No visual loss -4. Facial Palsy Normal symmetrical movements -5a. Left Arm No drift; arm holds 90 (or 45 ) degrees for full 10 seconds -5b. Right Arm No drift; arm holds 90 (or 45 ) degrees for full 10 seconds -6a. Left Leg No drift; leg holds 30-degree position for full 5 seconds -6b. Right Leg No drift; leg holds 30-degree position for full 5 seconds -7. Limb Ataxia Absent -8. Sensory Normal; no sensory loss -9. Best Language No aphasia; normal -10. Dysarthria Normal -11. Extinction and Inattention No abnormality -Total 0 Query Text:A score of 0 is normal or asymptomatic. Total possible score is 42 . ED: Notify Physician for NIHSS increase by > / = 3 points. Inpatient: RN or Physician to activate a stroke alert for NIHSS increase of > / = 3 points. Coma Scale [Assess] -Eye Opening Spontaneous -Motor Obeys Commands -Verbal Oriented [Total] -Coma Scale Total 15 Physical Exam Neuro Neuro Narrative: Mental Status: The patient was alert and oriented to person, place, month, and year Language: speech is fluent and without dysarthria. Naming and repletion are intact Cranial Nerves: Pupils are equal and reactive to light.? EOMI, no nystagmus is appreciated, visual mariscal full, face is symmetric at rest and with activation, hearing is intact to conversational tone, tongue protrudes midline. Facial sensation is intact to light touch, and equal bilaterally Motor: ?All extremities are antigravity. No pronator drift noted. Muscle bulk appears normal. Sensation- Intact to light touch bilaterally Coordination: No dysmetria on [id number], finger follow finger or [id number]. No truncal ataxia Gait: Observation of casual gait shows ability to get out of bed without assistance, Mildly wide gait, normal stride length. No truncal ataxia Lab / Micro Data 04/16/24 06:16 04/16/24 06:16 Labs: Laboratory Results - last 24 hr 04/15/24 09:15: PT 14.2, INR 1.1, APTT 28.4 04/15/24 11:25: Hemoglobin A1c 5.0 04/16/24 06:16: WBC 11.1 H, RBC 4.56 L, Hgb 14.0, Hct 41.6, MCV 91.2, MCH 30.7, MCHC 33.7, RDW Std Deviation 45.5 H, RDW Coeff of Jaquan 13.5, Plt Count 247, MPV 10.0, Immature Gran % (Auto) 0.500, Neut % (Auto) 65.5, Lymph % (Auto) 22.6, Addison % (Auto) 9.3, Eos % (Auto) 1.4, Baso % (Auto) 0.7, Absolute Neuts (auto) 7.3, Absolute Lymphs (auto) 2.50, Nucleated RBC % 0, Sodium 140, Potassium 3.5, Chloride 107, Carbon Dioxide 30.0, Anion Gap 3 L, BUN 11, Creatinine 0.78, Estim Creat Clear Calc 101.69, Est GFR (MDRD) Af Amer 128, Est GFR (MDRD) Non-Af 106, BUN/Creatinine Ratio 14.1, Glucose 104, Calcium 9.0, Triglycerides 147, Cholesterol 157, LDL Cholesterol 94, VLDL Cholesterol 29, HDL Cholesterol 34 L Rhythm Strip Rhythm Strip: Sinus Rhythm Rate: 74 Ectopy: None Imaging Radiology Impression Head/Neck CTA 04/15/24 09:08 IMPRESSION: Minimal plaque formation at the origin of the right internal carotid artery. N.B. : The above Results were Read Back by Rl Pierre MD to Hubertart Price and understanding confirmed on 04/15/2024 09:36:58 (ET). Electronically Signed: Rl Pierre MD at 9:38 EDT , ADDENDUM: 04/15/24 0945 IMPRESSION: Minimal plaque formation at the origin of the right internal carotid artery. N.B. : The above Results were Read Back by Rl Pierre MD to [facility] and understanding confirmed on 04/15/2024 09:36:58 (ET). Electronically Signed: Rl Pierre MD at 9:38 EDT , Chest X-Ray 04/15/24 09:50 IMPRESSION: No radiographic evidence of acute cardiopulmonary disease. Electronically Signed: Diogenes Juarez MD at 9:59 EDT , Brain MRI 04/15/24 14:07 IMPRESSION: No evidence for acute infarct. Mild chronic involutional and white matter changes. Electronically Signed: Carline Patel MD at 15:10 EDT , Active Medications Active Medications Active Medications: Current Medications Generic Name Dose Route Start Last Admin Trade Name Freq PRN Reason Stop Dose Admin Acetaminophen 650 mg 04/15/24 16:05 Acetaminophen 325 Mg Tablet PO Q6H PRN PRN Pain 1-10 Or Fever >100.7 Aspirin 81 mg 04/16/24 08:00 [facility] Citalopram Hydrobromide 20 mg 04/16/24 10:00 Citalopram 20 Mg Tablet PO DAILY [facility] Enoxaparin Sodium 40 mg 04/15/24 16:05 04/15/24 16:41 Enoxaparin 40 Mg/0.4 Ml Syringe SC 40 mg DAILY [facility] Administration Gabapentin 1,200 mg 04/15/24 22:00 04/15/24 20:32 Gabapentin 600 Mg Tablet PO 600 mg QHS [facility] Administration Multivitamins 1 tablet 04/16/24 08:00 [facility]ivitamins,Therapeutic [facility] Nitroglycerin 0.4 mg 04/15/24 16:05 Nitroglycerin (Inpatient Use) 0.4 Mg Tab.Subl SL Q5M PRN CARDIAC/CHEST PAIN Ondansetron HCl 4 mg 04/15/24 16:05 Ondansetron 4 Mg/2 Ml Vial IV Q8H PRN PRN NAUSEA/VOMITING Oxycodone HCl 2.5 - 5 mg 04/15/24 16:05 Oxycodone 5 Mg Tablet PO Q4H PRN PRN Pain Score 4-10 Pantoprazole Sodium 40 mg 04/16/24 10:00 Pantoprazole Sodium 40 Mg Tablet PO DAILY [facility] Sodium Chloride 10 - 40 ml 04/15/24 16:20 0.9% Saline Lock 10 Ml Syringe IV UD PRN SALINE FLUSH Tamsulosin HCl 0.4 mg 04/16/24 08:30 Tamsulosin Hcl 0.4 Mg Capsule PO DAILY@0830 [facility]
--- NOTE | 2024-04-16 11:10 | DCINST_ITS ---
Discharge Instructions Diet Discharge Diet: Low fat / Low cholesterol Activity Discharge Activity: Return to Normal Activity Weight Bearing Status: Weight bearing as tolerated Dressing / Incision Call your doctor if you observe: Fever of 101 or Higher, Shortness of breath and Dizziness Follow Up Care Test Results: Test results from this visit will be discussed in further detail at your follow- up appointment, if applicable. Discharge Plan Admission Admit Date/Time: 04/15/24 09:53 Primary Reason for Your Visit: BPPV Attending Provider: Pearl Del Rio Primary Care Provider: Rosa Acosta Consulting Providers: Willis Stark; Amada Corrigan; Sherri Ashford; Mai Vang; Angy Jang; James Araujo; Jojo Hawley; Eric Bone; Reid Hutchison; Jolie De La Rosa; Bruce Sunshine; Helga Vera; Griselda Berg; Yousif Frye; Riley Spence; Rylan Andrews; Phillip Fraire; Ria Burgos; Lili Skinner Instructions Patient Instructions: Dizziness Fainting Causes, BPPV Additional Instructions / Restrictions: will need to follow up with PT/OT for vestibular therapy Discharge Orders/Prescriptions Prescriptions: New meclizine 25 mg tablet 25 mg PO TID PRN (Reason: dizziness) Qty: 30 1RF Continued tamsulosin 0.4 mg capsule 0.4 mg PO DAILY 90 Days Qty: 90 hydrochlorothiazide 25 mg tablet 25 mg PO DAILY gabapentin [Neurontin] 600 mg tablet 1,200 mg PO QHS celecoxib 200 mg capsule 200 mg PO DAILY lansoprazole 15 mg capsule,delayed release(DR/EC) 30 mg PO DAILY citalopram 20 MG tablet 20 mg PO DAILY Patient Comments: TAKE 1 (ONE) TABLET ONCE DAILY carvedilol 6.25 mg tablet 3.125 mg PO BID multivitamin [Daily Multi-Vitamin] Tablet 1 tab PO DAILY aspirin [Adult Aspirin Regimen] 81 mg tablet,delayed release (DR/EC) 81 mg PO DAILY Referrals / Follow Up: Rosa Acosta DO [Primary Care Provider] - Within 1 Week Disposition Disposition (needs filled in before D/C Order can be placed): Home, Self Care
--- NOTE | 2024-04-16 11:12 | PCM.DC.SUM ---
Providers Date of Admission: 04/15/24 Date of Discharge: 04/16/24 Primary Care Physician: Dr. Rosa Acosta, DO Consultations 04/15/24 16:05 Consult: Tele-Neurology Routine Consulting Provider: [facility] Reason for Consult: Acute Ischemic Stroke/TIA EMERGENT Consult: No MD Notified: Yes Date Notified: 04/15/24 Time Notified: 16:22 Method of Notification: Answering Service Nursing Unit Staff Notify [facility] of Tele-Neurology Consult: Yes Reason For Visit: VERTIGO Diagnosis Discharge Diagnosis (1) Diplopia: Status: Acute Code(s): H53.2 - Diplopia (2) Dizziness: Status: Acute Code(s): R42 - Dizziness and giddiness Plan #Dizziness and diplopia to rule out a stroke Admit to PCU. CT of the brain was negative for any evidence of a stroke. Will admit to PCU to rule out a stroke. Will order MRI of the brain and 2D echo. CT of the head and neck showed no acute intracranial pathology. Consult neurology.. Aspirin 81 mg daily. PT OT consult. Fall precautions. Check A1c and lipid panel #Hypertension: Hold carvedilol and other BP meds allow for permissive hypertension in the case of a stroke. #BPH: On Flomax #ESTHER: on CPAP qhs #History of nonischemic cardiomyopathy: on aspirin, carvedilol and statin. carvedilol held on admission #Depression: On citalopram DVT prophylaxis: Lovenox CODE STATUS: Full code Patient counseled extensively about different types of CODE STATUS including full code, DNR CCA and DNR CCA. Patient elects to be full code. Total [id number] time 16 minutes. Medications at Discharge Home Medications tamsulosin 0.4 mg capsule 0.4 mg PO DAILY prostate 90 days #90 caps 11/06/18 citalopram 20 mg tablet 20 mg PO DAILY anxiety 10/20/19 hydrochlorothiazide 25 mg tablet 25 mg PO DAILY diuretic 12/04/19 lansoprazole 15 mg capsule,delayed release 30 mg PO DAILY gerd 12/04/19 gabapentin 600 mg tablet (Neurontin) 1,200 mg PO QHS nerve pain 09/19/22 celecoxib 200 mg capsule 200 mg PO DAILY pain 12/21/22 aspirin 81 mg tablet,delayed release (Adult Aspirin Regimen) 81 mg PO DAILY heart health 04/15/24 carvedilol 6.25 mg tablet 3.125 mg PO BID blood pressure 04/15/24 multivitamin (Daily Multi-Vitamin tablet) 1 tab PO DAILY vitamin 04/15/24 meclizine 25 mg tablet 25 mg PO TID PRN dizziness #30 tabs 04/16/24 Hospital Course Operations None Procedures 2-D Echocardiogram Summary of Care Provided Minutes Spent on Discharge: 45 Hospital Course: FELIX GOTTLIEB, is a 64 M with a PMh as outlined who presents via the ED on 04/15/2024 with a complaint of dizziness and lightheadedness. He woke up with these symptoms and felt like roscoe was spinning around him. This was new for him and he was also having trouble ambulating. He denied any headache but admitted to double vision, which was also new for him. He denied any cough, chest pain, palpitations, dizziness, nausea, vomiting or any other symptoms. Review of systems is otherwise negative. Vitals in the ED were BP of 145/80, CA of 80, RR of 13 and oxygen sats of 98% on room air. CBC showed hb of 16, wbc of 14.6, platelets of 265 and INR of 1.1. Chemistry showed sodium of 136, potassium of 3.2 and Cr of 0.93. Initial troponin was negative. CT of the brain showed no acute intracranial pathology, with no evidence of a stroke. CTA head and neck showed no evidence of hemodynamically significant stenosis, and showed a mild atherosclerotic plaque formation of hte origin of hte right internal carotid artery with less than 50% stenosis. He was admitted to be managed for dizziness and vertigo to rule out a posterior stroke. HE had MRI of the brain which showed no evidence of stroke. Neurology was consulted and felt his symptoms were more in line with BPPV. His symptoms did improve and he felt much better. He was discharged home on 04/16/2024. He was discharged with a script for vestibular therapy and meclizine. He is to follow-up with his primary care doctor within 1 to 2 weeks. Echo was done, read was pending at time of discharge Patient seen and examined prior to discharge. He felt much better and had no active complaints. He had an uneventful night. Review of systems otherwise negative. Labs and vitals reviewed. Home medication reviewed and reconciled. Physical Exam Const alert, oriented x3, no apparent distress and well nourished General Appearance: cooperative, comfortable and well kempt Orientation / Consciousness: awake HEENT normocephalic, head/scalp atraumatic, hearing grossly normal bilaterally, moist oral mucous membranes and oropharynx normal Mouth: oral and palatal mucosa normal Eyes PERRL, EOMs intact bilaterally and conjunctivae normal Neck no lymphadenopathy, supple and no JVD Lymph Lymphatic: no lymphadenopathy noted and no lymphedema noted Resp normal respiratory effort, normal air movement and clear to auscultation bilaterally Cardio regular rate, regular rhythm, S1 normal heart sound, S2 normal heart sound and no murmurs GI normal to inspection, nondistended, normoactive bowel sounds, soft to palpation and non-tender Extremity normal to inspection, full ROM, normal capillary refill, no clubbing, cyanosis or edema and no calf tenderness General Extremity: no tenderness to palpation of joints or extremities Skin no rashes or lesions noted General Skin Exam: no breakdown Neuro oriented x3, CN's II-XII intact bilaterally, moves all extremities, no focal motor deficits and no sensory deficits noted Motor Exam: strength 5/5 throughout and general weakness Psych thought process normal, cooperative and affect normal Appearance: appropriate Weight / BMI Weight Weight: 211 lb 13.828 oz Body Mass Index (BMI) 33.1 ABG / Lab / Microbiology Data 04/16/24 06:16 04/16/24 06:16 Laboratory: Laboratory Results - last 24 hr 04/15/24 11:25: Hemoglobin A1c 5.0 04/16/24 06:16: WBC 11.1 H, RBC 4.56 L, Hgb 14.0, Hct 41.6, MCV 91.2, MCH 30.7, MCHC 33.7, RDW Std Deviation 45.5 H, RDW Coeff of Jaquan 13.5, Plt Count 247, MPV 10.0, Immature Gran % (Auto) 0.500, Neut % (Auto) 65.5, Lymph % (Auto) 22.6, Williams % (Auto) 9.3, Eos % (Auto) 1.4, Baso % (Auto) 0.7, Absolute Neuts (auto) 7.3, Absolute Lymphs (auto) 2.50, Nucleated RBC % 0, Sodium 140, Potassium 3.5, Chloride 107, Carbon Dioxide 30.0, Anion Gap 3 L, BUN 11, Creatinine 0.78, Estim Creat Clear Calc 101.69, Est GFR (MDRD) Af Amer 128, Est GFR (MDRD) Non-Af 106, BUN/Creatinine Ratio 14.1, Glucose 104, Calcium 9.0, Triglycerides 147, Cholesterol 157, LDL Cholesterol 94, VLDL Cholesterol 29, HDL Cholesterol 34 L Radiography Diagnostic Testing: Radiology Impression Brain MRI 04/15/24 14:07 IMPRESSION: No evidence for acute infarct. Mild chronic involutional and white matter changes. Electronically Signed: Carline Patel MD at 15:10 EDT Reading Location ID and State: [facility] / [place] Tel , Service support , D/C Instructions Discharge Diet: Low fat / Low cholesterol Discharge Activity: Return to Normal Activity Weight Bearing Status: Weight bearing as tolerated Call your doctor if you observe: Fever of 101 or Higher, Shortness of breath and Dizziness Meaningful Use Info Meaningful Use Meaningful Use Diagnoses (Choose all that apply): None applicable Ischemic Stroke Statin Dosing Therapy Reference: STATIN DOSE THERAPY REFERENCE: * Patients > 75 years receive moderate or high dose statin therapy. * Patients 75 years or YOUNGER should receive HIGH intensity statin dose unless contraindicated. You will be required to document reason for non-treatment if statin daily dose does not meet guidelines. HIGH DOSE STATIN THERAPY DAILY Atorvastatin > than or = to 40 mg Rosuvastatin > than or = to 20 mg Amlodipine + Atorvastatin > than or = to 2.5/40 mg Ezetimibe + Simvastatin 10/80 mg Simvastatin 80mg Discharge Plan Admission Admit Date/Time: 04/15/24 09:53 Primary Reason for Your Visit: BPPV Attending Provider: Pearl Del Rio Primary Care Provider: Rosa Acosta Consulting Providers: Willis Stark; Amada Corrigan; Sherri Ashford; Mai Vang; Angy Jang; James Araujo; Jojo Hawley; Eric Bone; Reid Hutchison; Jolie De La Rosa; Bruce Sunshine; Helga Vera; Griselda Berg; Udaymarilyn Berman; Riley Spence; Rylan Andrews; Phillip Fraire; Ria Burgos; Lili Skinner Instructions Patient Instructions: Dizziness Fainting Causes, BPPV Additional Instructions / Restrictions: will need to follow up with PT/OT for vestibular therapy Discharge Orders/Prescriptions Prescriptions: New meclizine 25 mg tablet 25 mg PO TID PRN (Reason: dizziness) Qty: 30 1RF Continued tamsulosin 0.4 mg capsule 0.4 mg PO DAILY 90 Days Qty: 90 hydrochlorothiazide 25 mg tablet 25 mg PO DAILY gabapentin [Neurontin] 600 mg tablet 1,200 mg PO QHS celecoxib 200 mg capsule 200 mg PO DAILY lansoprazole 15 mg capsule,delayed release(DR/EC) 30 mg PO DAILY citalopram 20 MG tablet 20 mg PO DAILY Patient Comments: TAKE 1 (ONE) TABLET ONCE DAILY carvedilol 6.25 mg tablet 3.125 mg PO BID multivitamin [Daily Multi-Vitamin] Tablet 1 tab PO DAILY aspirin [Adult Aspirin Regimen] 81 mg tablet,delayed release (DR/EC) 81 mg PO DAILY Referrals / Follow Up: Rosa Acosta DO [Primary Care Provider] - Within 1 Week Disposition Disposition (needs filled in before D/C Order can be placed): Home, Self Care Charges/Coding Visit Charges Inpatient E&M: 77364 Disch Hosp >30min
[2024-04-16 11:50] VITALS: BP 133/79; PULSE 64; RESP 18; TEMP 36.6; O2SAT 97
--- NOTE | 2024-04-16 12:40 | CASEMGMT ---
Patient has order for discharge. SUSHIL ALEX reviewed progress with therapy, recommending outpatient vestibular therapy and walker. SUSHIL CM in to discuss therapy recommendations. Patient agreeable and would like referral sent to [facility] and prefers [facility] for DME. Patient no further questions or concerns. SUSHIL ALEX received scripts and referral sent to [facility] with request to call patient to make appt. Walker referral sent to [facility] and walker provided from [facility].
--- NOTE | 2024-04-16 12:48 | CASEMGMT ---
Met with patient to complete DECKER form. DECKER form explained to patient who voiced understanding and signed form. Original form placed in pt?s chart and copy provided to?patient. Liliane Gaytan, Discharge Planning Asst
== END 2024-04-16 11:09 | disposition home or self-care (01) ==
LOC: ED 09:54 → PCU 15:56
PROVIDERS: Admitting Provider Student in an Organized Health Care Education/Training Program; Emergency Provider Emergency Medicine; PCP Internal Medicine; Visit Provider Student in an Organized Health Care Education/Training Program
DX: H53.2 Diplopia (principal); I42.8 Other cardiomyopathies; E87.6 Hypokalemia; R11.0 Nausea; E78.00 Pure hypercholesterolemia, unspecified; I10 Essential (primary) hypertension; I45.10 Unspecified right bundle-branch block; R42 Dizziness and giddiness; Z87.891 Personal history of nicotine dependence; Z79.82 Long term (current) use of aspirin; G47.33 Obstructive sleep apnea (adult) (pediatric); N40.0 Benign prostatic hyperplasia without lower urinary tract symptoms; Z79.899 Other long term (current) drug therapy; R60.9 Edema, unspecified; I07.1 Rheumatic tricuspid insufficiency
CPT/HCPCS: 36415; 70450; 70496; 70498; 70551; 71045; 80048; 80061; 82962; 83036; 84484; 85025; 85610; 85730; 93005; 93306; 94762; 96361; 96372; 96374; 97162; 99221; 99282; J7030; Q9957; Q9967; A4216; G0378; J2405

== ENCOUNTER 2024-04-29 09:00 | Outpatient (RCR) | payer BC, MEDICARE, SELFPAY ==
--- NOTE | 2024-04-20 12:50 | HP.PTEVAL_ITS ---
Patient's Visit Information Visit Information Visit Information: FELIX GOTTLIEB Jr. is a 64 year old M referred to Physical Therapy by Dr. Pearl Del Rio MD with a diagnosis of dizziness and Diplopia. Date of Evaluation: 04/20/24 Physical Therapist: NANNETTE Arnold Visit Plan Frequency: 1x/Week Duration: 2 Months Plan: 1X/ week for 8 weeks for progressive horizontal head movements starting in sitting and progressing to standing and then gait with horizontal head turns. Once progression of horizontal head movements may start some balance activities as well. (FGA was a 5). HEP: Horizontal head and eye turns in sitting Subjective Subjective: He woke up at 5:00am and the room was spinning and his drove him to the ER. They ruled out a stroke. This was last Saturday. He reports that it is getting better and now he is lightheaded. Nothing is spinning now. He had nystagmus in one eye. They kept him in the hospital until afternoon. He has not seen his PCP. They told him he had vertigo. He balance has been off the last few years. His stress test was negative. He has medicine for dizziness but it makes him too tired and does not use it. He is more lightheaded when standing or when he moves his head too fast. He is sleeping ok now. Objective Objective: Gait: walks with a walking stick in R hand. LE MMT: R hip flex 11.6 and L 13.4 R knee ext 27.3 and L 30.7 R knee flex 9.4 and L 12.8 FGA: 5 Smooth pursuit X 30 sec horizontal and vertical no dizziness Head and eyes move to R and then to the L horizontal X 20 seconds with increase dizziness in sitting Head and eyes vertical X 30 seconds with no dizziness in sitting Balance/Special Test Scores Functional Gait Assessment Score: 5 % Disability: 83.3400 Dizziness Score: 36 Goals Goal 1:: I HEP Goal Time Frame: 6-8 Weeks Goal 2:: Be able to complete X 1 min in standing head and eyes moving horizontal with no dizziness Goal Time Frame: 6-8 Weeks Goal 3:: Be able to walk with horizontal head turns without dizziness or veering Goal Time Frame: 6-8 Weeks Goal 4:: Increase Balance (FGA was 5 at [facility]) Goal Time Frame: 6-8 Weeks Rehabilitation Potential Rehabilitation Potential: Good Anticipated Interventions Patient/Client Instruction: Educate patient on: Condition and Plan of Care For the Purpose of:: To improve gait and locomotor functions, To improve endurance, To improve balance and To improve safety with gait Therapeutic Exercise to Include: Strength training, Endurance training, Balance training, Postural training, Gait and locomotor training and Neuromotor development For the Purpose of:: To improve muscle performance and motor function, To improve ability to perform ADL's, To increase tolerance to activity/condition/position, To improve performance and independence with ADL's, To improve gait and locomotor functions, To improve health of tissue, To improve endurance, To improve balance and To improve safety with gait Functional Training to Include: Gait training For the Purpose of:: To improve gait and locomotor functions and To improve safety with gait Text: Thank you for the opportunity to evaluate your patient. For Medicare and Medicare HMO plans, please review the plan of care and approve it. It will need to be FAXED BACK to us at [phone] for Medicare purposes. For Medicare only, by signing this I certify the plan of care. Please let me know if there are questions or concerns regarding this plan of care. Physician Signature: Date:
--- NOTE | 2024-06-12 13:17 | HP.PTDCNRP_ITS ---
Patient Information Patient Information: FELIX GOTTLIEB Jr. was seen in my office for initial evaluation on 04/20/24. The following Plan of Care was established for this patient: POC Established Initial Frequency: 1x/Week Initial Duration: 2 Months Anticipated Interventions Patient/Client Instruction: Educate patient on: Condition and Plan of Care For the Purpose of:: To improve gait and locomotor functions, To improve endurance, To improve balance and To improve safety with gait Therapeutic Exercise to Include: Strength training, Endurance training, Balance training, Postural training, Gait and locomotor training and Neuromotor development For the Purpose of:: To improve muscle performance and motor function, To impr ove ability to perform ADL's, To increase tolerance to activity/condition/position, To improve performance and independence with ADL's, To improve gait and locomotor functions, To improve health of tissue, To improve endurance, To improve balance and To improve safety with gait Functional Training to Include: Gait training For the Purpose of:: To improve gait and locomotor functions and To improve safety with gait Last Seen Last Seen: This patient was last seen in our office 04/29/24. Pertinent comments regarding their Physical therapy will appear below: DC PT having other health issues At this point I will be discontinuing this patient from physical therapy. I would be happy to see this patient again in the future if found appropriate by the physician. Thank you! Melissa Barton, NANNETTE Balance/Gait/Functional tests Balance/Special Test Scores Functional Gait Assessment Score: 5 % Disability: 83.3400 Dizziness Score: 36
== END 2024-04-29 19:00 | disposition home or self-care (01) ==
LOC: PT 09:00
PROVIDERS: PCP Internal Medicine; Referring Provider Student in an Organized Health Care Education/Training Program; Visit Provider Student in an Organized Health Care Education/Training Program
DX: R42 Dizziness and giddiness (principal); H53.2 Diplopia
CPT/HCPCS: 97110; 97161

== ENCOUNTER → 2024-11-10 | Outpatient (CLI) | payer BC, MEDICARE, SELFPAY ==
[2024-11-10 15:52] LABS: Erythrocyte Sedimentation Rate 20 mm/hr (0-20)
[2024-11-10 15:56] LABS: Absolute Lymphocyte Count 1.69 X10^3/uL (0.83-4.51); Absolute Neutrophil Count 6.9 X10^3/uL (2.0-7.7); Basophil# 0.11 X10^3/uL; Basophil% 1.1 % (0-1); Eosinophil# 0.18 X10^3/uL; Eosinophils% 1.9 % (0-5); Hematocrit 48.3 % (40-54); Lymphocyte # 1.69 X10^3/ul (0.83-4.51); Lymphocyte % 17.7 % (19-41); Mean Corp Hgb Conc 33.1 g/dL (32-36); Mean Corpuscular Hgb 29.8 pg (27.0-32.0); Mean Corpuscular Volume 89.9 fL (80-94); Mean Platelet Vol. 10.5 fl (6.2-12.0); Monocyte# 0.67 X10^3/uL; NRBC Flagged by Analyzer 0 % (0-5); Neutrophil # 6.85 X10^3/uL (2.7-7.7); Neutrophil % 71.6 % (47-70); Platelet Count 286 K/mm3 (150-450); RBC Distribution Width CV 13.8 % (11.6-14.6); RBC Distribution Width SD 45.6 fl (35.1-43.9); Red Blood Count 5.37 M/mm3 (4.6-6.2); White Blood Count 9.6 K/mm3 (4.4-11.0)
[2024-11-10 16:04] LABS: Vitamin B12 431 pg/mL (211-911)
[2024-11-10 19:18] LABS: ALB/GLOB Ratio 1.1 RATIO (0.9-2.4); AST(SGOT) 16 U/L (15-37); Alanine Aminotransfer ALT/SGPT 23 U/L (16-61); Albumin, Serum 3.8 g/dL (3.2-5.0); Alkaline Phosphatase 80 U/L (45-117); Anion Gap 4 (5-15); BUN 17 mg/dL (7-18); Calcium,Total 9.6 mg/dL (8.5-10.1); Chloride 107 mmol/L (98-107); Creatinine, Serum 0.85 mg/dL (0.70-1.30); EST Glomerular Filtration Rate 96 mL/min (>60); Est Glom Filt Rate - Afr Amer 116 mL/min (>60); Globulin 3.5 g/dL (2.2-4.2); Glucose 99 mg/dL (74-106); Protein, Total 7.3 g/dL (6.4-8.2); Rheumatoid Factor < 10.0 IU/mL (<15); Sodium Level 138 mmol/L (136-145)
[2024-11-10 19:28] LABS: Microalbumin,Random Urine 84.5 mg/L (NO RANGE EST.); Microalbumin:Creatinine Ratio 116.1 mg/g CRE (<30 mg/g CRE)
[2024-11-12 13:07] LABS: ANTINUCLEAR ANTIBODIES DIRECT Negative (Negative)
[2024-11-16 09:22] LABS: Angiotensin Convert Enzyme 42 U/L (14-82); PROEL- A/G Ratio 1.2 (0.7-1.7); PROEL- Albumin 3.8 g/dL (2.9-4.4); PROEL- Alpha-1 Globulin 0.3 g/dL (0.0-0.4); PROEL- Alpha-2 Globulin 0.8 g/dL (0.4-1.0); PROEL- Beta Globulin 1.2 g/dL (0.7-1.3); PROEL- Gamma Globulin 0.8 g/dL (0.4-1.8); PROEL- Globulin, Total 3.1 g/dL (2.2-3.9); PROEL- TOTAL PROTEIN 6.9 g/dL (6.0-8.5); PROEL-M-Spike Not Observed g/dL (Not Observed)
== END | disposition home or self-care (01) ==
LOC: MFPLAB 12:17
PROVIDERS: PCP Internal Medicine; Visit Provider Family Medicine
DX: R53.83 Other fatigue (principal)
CPT/HCPCS: 36415; 80053; 82043; 82164; 82570; 82607; 82746; 83036; 84165; 84403; 84443; 85025; 85652; 86038; 86140; 86431

== ENCOUNTER → 2024-12-31 | Outpatient (CLI) | payer BC, MEDICARE, SELFPAY ==
[2025-01-04 15:07] LABS: Cytoplasmic Ab (C-ANCA) <1:20 titer (Neg:<1:20); Perinuclear Ab (P-ANCA) <1:20 titer (Neg:<1:20)
== END | disposition home or self-care (01) ==
LOC: MFPLAB 15:22
PROVIDERS: PCP Family Medicine; Visit Provider Family Medicine
DX: J32.9 Chronic sinusitis, unspecified (principal)
CPT/HCPCS: 36415; 86037

== ENCOUNTER 2025-03-09 09:37 | Outpatient (RCR) | payer BC, MEDICARE, SELFPAY ==
--- NOTE | 2025-03-09 10:41 | HP.PTEVAL_ITS ---
Patient's Visit Information Visit Information Visit Information: FELIX GOTTLIEB Jr. is a 64 year old M referred to Physical Therapy by Dr. Nima Barry MD with a diagnosis of dizziness, balance issues. Date of Evaluation: 03/09/25 Physical Therapist: Nima Dupont, DPT, OCS, CSCS Visit Plan Plan: Pt tested very well on all vestibular issue and on balance system issues today outside of R knee limitations. No positional problems, no motion sensitivity, no oculootor deficits and no dizzy or lightheadedness able to be created today. He did not wihs to pursue biodex testing in place of his neurocom order and already has a HEP that he used to do that he feels comfortable getting back to for weight shifts, VOR, strengthening at home. No further skilled intervention desired at this point. Subjective Subjective: Balance has not been great. A few yrs ago had sudden onset of dizzy and balance but it gradually got better. Now gets lightheaded occasionally every couple days when walking or if gets tired. Worse end of day. Not disabling at all. may have some neuroapthy, No DM. No spinning. No falls. Activities normal. Will not ride motorcycle anymore. Lives with , one story, no steps. Basic ADLs are all I. Hobbies: guns and [employer] radios, no problem. Employed : no Pain Joints: Pain Intensity (Out of 10): Unrated Comment: aches and pains Objective Objective: Walks into PT with R knee pain but no antalgia until steps. Trasnfers chair and bed I, limited R knee ROM on chair transfer. Steps are L only due to limited R knee ROM and pain and requires rails. cervical aROm stiff but symmetrical and without pain. UE AROM WFL LE AROM WFL, tightness HS at -25 90/90 and gastroc at 0 Df but fucntional ROm except R knee 0-90. sensation LE to gross light touch is WNL. coordination to reciprocal toe and heel tap is good. reflexes 0/3 patella and 1/3 achilles B. strength Knees 4+/5 but r knee ext slightly painful. Hip abd and ext 3+, flexion 4-, ankles 4+. Some minor instability in sitting with hip flexion testing. Oculomotor: no nystagmus with gaze or head shake - skew eye deviation - ocular tilt VOR, pursuit and saccades all appear normal and asymptomatic today. - head thrust MSQ positions and movements create no lightheadedness or dizzyness today Balance/Special Test Scores Functional Gait Assessment Score: 26 % Disability: 13.3400 CATSIB Score (Max score 120 seconds): 120 Dizziness Score: 2 TUG Test Time Seconds: 8 Rehabilitation Potential Physical Therapy Diagnosis: Pt doing well without evidence of vestibular problems or balance deficits outside of R knee pain today. Anticipated Interventions Text: Thank you for the opportunity to evaluate your patient. For Medicare and Medicare HMO plans, please review the plan of care and approve it. It will need to be FAXED BACK to us at [phone] for Medicare purposes. For Medicare only, by signing this I certify the plan of care. Please let me know if there are questions or concerns regarding this plan of care. Physician Signature: Date:
== END 2025-03-09 19:00 | disposition home or self-care (01) ==
LOC: PT 09:37
PROVIDERS: PCP Family Medicine; Referring Provider Family Medicine; Visit Provider Family Medicine
DX: R42 Dizziness and giddiness (principal); R26.89 Other abnormalities of gait and mobility
CPT/HCPCS: 97161

== ENCOUNTER → 2025-09-01 | Outpatient (CLI) | payer BC, MEDICARE, SELFPAY ==
[2025-09-01 16:20] LABS: PSA,Total - Annual Screen 1.03 ng/mL (0.02-4.00)
== END | disposition home or self-care (01) ==
LOC: MFPLAB 11:45
PROVIDERS: PCP Family Medicine
DX: Z12.5 Encounter for screening for malignant neoplasm of prostate (principal)
CPT/HCPCS: 36415; 84153; G0103